=== PATIENT | male | born 1930 | race African-American/Black ===

== ENCOUNTER 2017-07-07 23:25 | Inpatient (IN) | payer MEDICARE, MEDICAID ==
[~2017-07-07] VITALS: Ht 182.9 cm; Wt 81.6 kg
--- NOTE | 2017-07-07 23:52 | Emergency Room Report ---
History of Present Illness General Chief Complaint: Upper Respiratory Illness Source: Patient Present Illness HPI 87-year-old male, coming from halfway, history of recent left inguinal repair, presenting with fever, chills, shortness of breath, abdominal pain. Patient states he has had abdominal pain for one week. Has had some nausea vomiting. Points to right lower abd, intermittent, sharp, No diarrhea no constipation. Also with cough and shortness of breath, cough is dry. Fever in halfway Allergies: Coded Allergies: No Known Allergies (Unverified , 07/07/17) Patient History Past Medical History: see triage record Past Surgical History: none Pertinent Family History: none Reviewed Nursing Documentation: PMH: Agreed, PSxH: Agreed Nursing Documentation-PMH Hx Hypertension: Yes - afib Hx Diabetes: Yes - dm type 2 Review of Systems All Other Systems: negative except mentioned in HPI Physical Exam Vital Signs Date Time Temp Pulse Resp B/P (MAP) Pulse Ox O2 Delivery O2 Flow Rate FiO2 07/07/17 23:27 98.8 54 18 123/69 95 Nasal Cannula 2.0 Sp02 EP Interpretation: reviewed, normal General Appearance: alert, GCS 15, non-toxic, mild distress Head: normocephalic, atraumatic Eyes: bilateral eye normal inspection, bilateral eye PERRL, bilateral eye EOMI ENT: normal ENT inspection, normal pharynx, normal voice, moist mucus membranes Neck: normal inspection, full range of motion, supple Respiratory: lungs clear, normal breath sounds, no retraction, respiratory distress, speaking full sentences, chest symmetrical Cardiovascular #1: normal inspection, regular rate, rhythm, no edema, normal capillary refill Cardiovascular #2: 2+ radial (R), 2+ radial (L) Gastrointestinal: other - L inguinal incision with mehul, clean dry intact, nontender at wound, RLQ tenderness no guarding or rebound. normal BS Musculoskeletal: normal inspection, back normal, normal range of motion, non- tender Neurologic: normal inspection, alert, oriented x3, responsive, motor strength/ tone normal, sensory intact, normal gait, speech normal Psychiatric: normal inspection, judgement/insight normal, memory normal Skin: normal inspection, normal color, no rash, warm/dry, well hydrated, normal turgor Medical Decision Making Diagnostic Impression: Primary Impression: Pneumonia ER Course 87-year-old male, fever chills, cough, shortness of breath, abdominal pain DDX: Sepsis 2/2 UTI, PNA, bacteremia, will also consider intra-abdominal pathology such as appendicitis/colitis / diverticulitis if no other course found but at this time abdomen soft, NT, ND. Plan: IV access - 30cc/kg bolus NS Obtain labs including cbc, bmp, blood culture, blood gas, lactate, ua, ucx CXR EKG CT abdomen pelvis ER course: Pt's airway remains patent, supplemental O2 provided by NC Patient's BP has remained stable with MAP > 65 Given broad spectrum abx - vancomycin and cefepime for HCAP Disposition: Patient will admitted to med surg D/W Hospitalist Dr Calhoun Please note that this Emergency Department Report was dictated using [employer] pipelines technology software, occasionally this can lead to erroneous entry secondary to interpretation by the dictation equipment. EKG Diagnostic Results EP Interpretation: Yes Rate: normal Rhythm: ?afib ST Segments: No acute changes ASA given to patient: No Rhythm Strip EP Interpretation: Yes Rate: 66 Rhythm: NSR, no PVCs, no ectopy Chest X-ray CXR: Ordered: Yes 1 view Indication: Shortness of breath EP interpretation: Yes Interpretation: Right lower lobe infiltrate Impression: Right lower lobe pneumonia Electronically signed by Maria G García MD Laboratory Tests Test 07/08/17 00:40 White Blood Count 10.4 K/UL (4.8-10.8) Red Blood Count 3.70 M/UL (4.70-6.10) L Hemoglobin 9.1 G/DL (14.2-18.0) L Hematocrit 28.0 % (42.0-52.0) L Mean Corpuscular Volume 76 FL (80-99) L Mean Corpuscular Hemoglobin 24.5 PG (27.0-31.0) L Mean Corpuscular Hemoglobin Concent 32.4 G/DL (32.0-36.0) Red Cell Distribution Width 16.0 % (11.6-14.8) H Platelet Count 86 K/UL (150-450) L Mean Platelet Volume 12.2 FL (6.5-10.1) H Neutrophils (%) (Auto) % (45.0-75.0) Lymphocytes (%) (Auto) % (20.0-45.0) Monocytes (%) (Auto) % (1.0-10.0) Eosinophils (%) (Auto) % (0.0-3.0) Basophils (%) (Auto) % (0.0-2.0) Sodium Level 141 MMOL/L (136-145) Potassium Level 4.3 MMOL/L (3.5-5.1) Chloride Level 108 MMOL/L (98-107) H Carbon Dioxide Level 26 MMOL/L (21-32) Anion Gap 7 mmol/L (5-15) Blood Urea Nitrogen 12 mg/dL (7-18) Creatinine 0.8 MG/DL (0.55-1.30) Estimate Glomerular Filtration Rate mL/min (>60) Glucose Level 105 MG/DL (74-106) Lactic Acid Level 0.90 mmol/L (0.66-2.22) Calcium Level 8.2 MG/DL (8.5-10.1) L Total Bilirubin 0.8 MG/DL (0.2-1.0) Aspartate Amino Transferase (AST) 22 U/L (15-37) Alanine Aminotransferase (ALT) 15 U/L (12-78) Alkaline Phosphatase 81 U/L (46-116) Troponin I 0.005 ng/mL (0.000-0.056) Pro-B-Type Natriuretic Peptide 1806 pg/mL (0-125) H Total Protein 5.4 G/DL (6.4-8.2) L Albumin 1.9 G/DL (3.4-5.0) L Globulin 3.5 g/dL Albumin/Globulin Ratio 0.5 (1.0-2.7) L Last Vital Signs Date Time Temp Pulse Resp B/P (MAP) Pulse Ox O2 Delivery O2 Flow Rate FiO2 07/07/17 23:27 98.8 54 18 123/69 95 Nasal Cannula 2.0 Disposition: ADMITTED INPATIENT Condition: Serious Maria G García M.D. Jul 07, 2017 23:52
[2017-07-08] VITALS (7 sets, daily range): BP systolic 122–133; BP diastolic 57–69
[2017-07-08] MEDS ORDERED: Vancomycin 1.5gm/D5W 250ml 250 ML IVPB ONE
[2017-07-08] MEDS ORDERED: AVODART0.5 MG ORAL (00:19)
[2017-07-08] MEDS ORDERED: DOCUSATE SODIU100 MG ORAL (00:19)
[2017-07-08] MEDS ORDERED: SIMVASTATIN20 MG ORAL (00:19)
[2017-07-08] MEDS ORDERED: AMLODIPINE BESYL5 MG ORAL (00:19)
[2017-07-08] MEDS ORDERED: ASPIR 8181 MG ORAL (00:19)
[2017-07-08] MEDS ORDERED: NITROGLYCERIN0.4 MG SL (00:19)
[2017-07-08] MEDS ORDERED: OMEPRAZOLE20 M2 ORAL (00:19)
[2017-07-08] MEDS ORDERED: VITAMIN C250 MG ORAL (00:19)
[2017-07-08] MEDS ORDERED: GABAPENTIN100 MG ORAL (00:19)
[2017-07-08] MEDS ORDERED: NORCO 5-325 TA1 EACH ORAL (00:19)
[2017-07-08] MEDS ORDERED: BISACODYL5 MG ORAL (00:19)
[2017-07-08] MEDS ORDERED: FERROUS SULFAT325 MG ORAL (00:19)
[2017-07-08] MEDS ORDERED: CARVEDILOL3.125 MG ORAL (00:19)
[2017-07-08] MEDS ORDERED: BACLOFEN10 MG ORAL (00:19)
[2017-07-08 01:11] LABS: HEMOGLOBIN 9.1 G/DL (14.2-18.0); MEAN CORPUSCULAR VOLUME 76 FL (80-99); PLATELET COUNT 86 K/UL (150-450); WHITE BLOOD COUNT 10.4 K/UL (4.8-10.8)
[2017-07-08 01:19] LABS: ANION GAP 7 mmol/L (5-15); BLOOD UREA NITROGEN 12 mg/dL (7-18); CALCIUM 8.2 MG/DL (8.5-10.1); CARBON DIOXIDE 26 MMOL/L (21-32); CHLORIDE 108 MMOL/L (98-107); CREATININE 0.8 MG/DL (0.55-1.30); POTASSIUM 4.3 MMOL/L (3.5-5.1); SODIUM 141 MMOL/L (136-145)
[2017-07-08] MEDS ORDERED: Cefepime 2gm ONE (01:29)
[2017-07-08 01:32] LABS: ALANINE AMINOTRANSFERASE 15 U/L (12-78); ALBUMIN 1.9 G/DL (3.4-5.0); ALBUMIN/GLOBULIN RATIO 0.5 (1.0-2.7); ALKALINE PHOSPHATASE 81 U/L (46-116); ASPARTATE AMINO TRANSFERASE 22 U/L (15-37); BILIRUBIN,TOTAL 0.8 MG/DL (0.2-1.0)
[2017-07-08] MEDS: Cefepime HCl 2 GM in NS 110 ML IV ONE ×3 (01:35)
[2017-07-08] MEDS ORDERED: Cefepime 1gm vial ONE (01:54)
[2017-07-08] MEDS ORDERED: Cefepime HCl 1 GM in D5W 55 ML IVPB ONE (02:00)
[2017-07-08] MEDS ORDERED: Morphine Sulfate 4mg/ml Inj ONE (03:25)
[2017-07-08] MEDS ORDERED: Morphine Sulfate 4mg/ml Inj IVP ONE (03:30)
[2017-07-08] MEDS ORDERED: Nitroglycerin Subl 0.4mg tab SL PRN (08:00)
[2017-07-08] MEDS ORDERED: Norco 5mg/325mg tab ORAL PRN (08:00)
[2017-07-08] MEDS ORDERED: Bisacodyl EC 5mg tab ORAL PRN (08:30)
[2017-07-08] MEDS: Ascorbic Acid 500mg tab ORAL SCH ×3 (08:57→17:04)
[2017-07-08] MEDS: Aspirin EC 81mg tab ORAL SCH (08:57)
[2017-07-08] MEDS ORDERED: Docusate 100mg cap ORAL SCH (09:00)
--- NOTE | 2017-07-08 10:24 | Diagnostic Imaging Report ---
Indication: Pain Technique: XRAY Chest 1v Comparison: None Findings: Exam limited due to patient rotation. Heart size is within normal limits. Atherosclerotic calcification noted within a tortuous and ectatic aorta. There is small right pleural effusion and hazy right lower lung airspace opacity. No pneumothorax. No acute osseous abnormality appreciated. Impression: Small right pleural effusion and right lower lung airspace opacities concerning for pneumonia. Clinical correlation and radiographic follow-up to resolution recommended. This corresponds with the preliminary interpretation by the treating ER physician as documented in the electronic medical record. Study obtained via the emergency department however patient admitted to the hospital at time of dictation of the final report.
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
[2017-07-08 12:58] LABS: BASOPHILS % (AUTO) 0.5 % (0.0-2.0); EOSINOPHILS % (AUTO) 0.6 % (0.0-3.0); HEMATOCRIT 29.1 % (42.0-52.0); HEMOGLOBIN 9.2 G/DL (14.2-18.0); LYMPHOCYTES % (AUTO) 11.7 % (20.0-45.0); MEAN CORPUSCULAR VOLUME 77 FL (80-99); MONOCYTES % (AUTO) 12.6 % (1.0-10.0); NEUTROPHILS % (AUTO) 74.7 % (45.0-75.0); PLATELET COUNT 219 K/UL (150-450); RED CELL DISTRIBUTION WIDTH 15.9 % (11.6-14.8); WHITE BLOOD COUNT 10.7 K/UL (4.8-10.8)
[2017-07-08 13:10] LABS: ALANINE AMINOTRANSFERASE 15 U/L (12-78); ALBUMIN/GLOBULIN RATIO 0.5 (1.0-2.7); ALKALINE PHOSPHATASE 79 U/L (46-116); ANION GAP 10 mmol/L (5-15); ASPARTATE AMINO TRANSFERASE 20 U/L (15-37); BILIRUBIN,TOTAL 0.9 MG/DL (0.2-1.0); BLOOD UREA NITROGEN 11 mg/dL (7-18); CALCIUM 8.3 MG/DL (8.5-10.1); CARBON DIOXIDE 26 MMOL/L (21-32); CHLORIDE 105 MMOL/L (98-107); CREATININE 0.8 MG/DL (0.55-1.30); POTASSIUM 4.2 MMOL/L (3.5-5.1); SODIUM 140 MMOL/L (136-145)
[2017-07-08] MEDS ORDERED: Cefepime HCl 1 GM in NS 55 ML IVPB SCH (14:00)
--- NOTE | 2017-07-08 14:54 | Consultation ---
History of Present Illness General Date patient seen: Jul 08, 2017 Present Illness Allergies: Coded Allergies: No Known Allergies (Unverified , 07/07/17) Medication History Scheduled Amlodipine Besylate* (Amlodipine Besylate*), 5 MG ORAL DAILY, (Reported) Ascorbic Acid* (Vitamin C*), 250 MG ORAL THREE TIMES A DAY, (Reported) Aspirin* (Aspir 81*), 81 MG ORAL DAILY, (Reported) Baclofen* (Baclofen*), 10 MG ORAL THREE TIMES A DAY, (Reported) Carvedilol* (Carvedilol*), 3.125 MG ORAL EVERY 12 HOURS, (Reported) Docusate Sodium* (Docusate Sodium*), 200 MG ORAL TWICE A DAY, (Reported) Dutasteride (Avodart), 0.5 MG ORAL DAILY, (Reported) Ferrous Sulfate* (Ferrous Sulfate*), 325 MG ORAL THREE TIMES A DAY, (Reported) Gabapentin* (Gabapentin*), 200 MG ORAL EVERY 8 HOURS, (Reported) Omeprazole (Omeprazole), 20 MG ORAL DAILY, (Reported) Simvastatin (Zocor), 20 MG ORAL BEDTIME, (Reported) Scheduled PRN Bisacodyl* (Dulcolax*), 5 MG ORAL DAILY PRN for Constipation, (Reported) Hydrocodone Bit/Acetaminophen 5-325* (Moodus 5-325*), 2 TAB ORAL Q6H PRN for For Pain, (Reported) Miscellaneous Medications Nitroglycerin (Nitroglycerin), 0.4 MG SL, (Reported) Patient History Healthcare decision maker Yannick Sharma Resuscitation status Full Code Advanced Directive on File Physical Exam Last 24 Hour Vital Signs Date Time Temp Pulse Resp B/P (MAP) Pulse Ox O2 Delivery O2 Flow Rate FiO2 07/08/17 12:00 97.9 60 20 130/59 98 07/08/17 08:59 64 126/60 07/08/17 08:58 64 126/60 07/08/17 08:00 98.6 64 20 126/60 97 Nasal Cannula 2.0 07/08/17 08:00 Nasal Cannula 2.0 28 07/08/17 08:00 98 Nasal Cannula 2.0 28 07/08/17 05:25 Nasal Cannula 2.0 07/08/17 04:00 98.5 66 20 129/57 98 Nasal Cannula 07/08/17 03:45 98.8 58 18 122/69 98 Nasal Cannula 2.0 07/08/17 03:45 98.8 58 18 122/69 98 Nasal Cannula 2.0 07/08/17 00:00 98.8 62 18 125/69 96 Nasal Cannula 2.0 07/08/17 00:00 54 18 Nasal Cannula 2.0 07/07/17 23:27 98.8 54 18 123/69 95 Nasal Cannula 2.0 Intake and Output 07/07/17 07/08/17 19:00 07:00 # Voids 2 Laboratory Tests Test 07/08/17 00:40 07/08/17 12:40 White Blood Count 10.4 K/UL (4.8-10.8) 10.7 K/UL (4.8-10.8) Red Blood Count 3.70 M/UL (4.70-6.10) L 3.80 M/UL (4.70-6.10) L Hemoglobin 9.1 G/DL (14.2-18.0) L 9.2 G/DL (14.2-18.0) L Hematocrit 28.0 % (42.0-52.0) L 29.1 % (42.0-52.0) L Mean Corpuscular Volume 76 FL (80-99) L 77 FL (80-99) L Mean Corpuscular Hemoglobin 24.5 PG (27.0-31.0) L 24.4 PG (27.0-31.0) L Mean Corpuscular Hemoglobin Concent 32.4 G/DL (32.0-36.0) 31.7 G/DL (32.0-36.0) L Red Cell Distribution Width 16.0 % (11.6-14.8) H 15.9 % (11.6-14.8) H Platelet Count 86 K/UL (150-450) L 219 K/UL (150-450) # Mean Platelet Volume 12.2 FL (6.5-10.1) H 8.9 FL (6.5-10.1) Neutrophils (%) (Auto) % (45.0-75.0) 74.7 % (45.0-75.0) Lymphocytes (%) (Auto) % (20.0-45.0) 11.7 % (20.0-45.0) L Monocytes (%) (Auto) % (1.0-10.0) 12.6 % (1.0-10.0) H Eosinophils (%) (Auto) % (0.0-3.0) 0.6 % (0.0-3.0) Basophils (%) (Auto) % (0.0-2.0) 0.5 % (0.0-2.0) Sodium Level 141 MMOL/L (136-145) 140 MMOL/L (136-145) Potassium Level 4.3 MMOL/L (3.5-5.1) 4.2 MMOL/L (3.5-5.1) Chloride Level 108 MMOL/L (98-107) H 105 MMOL/L (98-107) Carbon Dioxide Level 26 MMOL/L (21-32) 26 MMOL/L (21-32) Anion Gap 7 mmol/L (5-15) 10 mmol/L (5-15) Blood Urea Nitrogen 12 mg/dL (7-18) 11 mg/dL (7-18) Creatinine 0.8 MG/DL (0.55-1.30) 0.8 MG/DL (0.55-1.30) Estimat Glomerular Filtration Rate mL/min (>60) mL/min (>60) Glucose Level 105 MG/DL (74-106) 99 MG/DL (74-106) Lactic Acid Level 0.90 mmol/L (0.66-2.22) Calcium Level 8.2 MG/DL (8.5-10.1) L 8.3 MG/DL (8.5-10.1) L Total Bilirubin 0.8 MG/DL (0.2-1.0) 0.9 MG/DL (0.2-1.0) Aspartate Amino Transf (AST/SGOT) 22 U/L (15-37) 20 U/L (15-37) Alanine Aminotransferase (ALT/SGPT) 15 U/L (12-78) 15 U/L (12-78) Alkaline Phosphatase 81 U/L (46-116) 79 U/L (46-116) Troponin I 0.005 ng/mL (0.000-0.056) Pro-B-Type Natriuretic Peptide 1806 pg/mL (0-125) H Total Protein 5.4 G/DL (6.4-8.2) L 5.7 G/DL (6.4-8.2) L Albumin 1.9 G/DL (3.4-5.0) L 2.0 G/DL (3.4-5.0) L Globulin 3.5 g/dL 3.7 g/dL Albumin/Globulin Ratio 0.5 (1.0-2.7) L 0.5 (1.0-2.7) L Microbiology Date/Time Source Procedure Growth Status 07/08/17 00:40 Nasal Nares Influenza Types A,B Antigen (ANANDA) - Final Complete Height (Feet): 6 Height (Inches): 0.00 Weight (Pounds): 180 Medications Current Medications Medications (Trade) Dose Ordered Sig/Tierney Route PRN Reason Start Time Stop Time Status Last Admin Dose Admin Acetaminophen/ Hydrocodone Bitart (Moodus 10/325) 1 tab Q4H PRN ORAL severe pain 07/08/17 14:30 07/15/17 14:29 UNV Amlodipine Besylate (Norvasc) 5 mg DAILY ORAL 07/08/17 09:00 08/07/17 08:59 Ascorbic Acid (Vitamin C) 250 mg TID ORAL 07/08/17 09:00 08/07/17 08:59 07/08/17 13:13 Aspirin (Ecotrin) 81 mg DAILY ORAL 07/08/17 09:00 08/07/17 08:59 07/08/17 08:57 Atorvastatin Calcium (Lipitor) 10 mg BEDTIME ORAL 07/08/17 21:00 08/07/17 20:59 Baclofen (Lioresal) 10 mg THREE TIMES A DAY PRN ORAL Muscle Spasm 07/08/17 07:45 08/07/17 07:44 Bisacodyl (Dulcolax) 5 mg DAILY PRN ORAL Constipation 07/08/17 08:30 08/07/17 08:29 Carvedilol (Coreg) 3.125 mg EVERY 12 HOURS ORAL 07/08/17 09:00 08/07/17 08:59 Cefepime HCl 1 gm/ Sodium Chloride 55 ml @ 110 mls/hr Q12HR@0200,1400 IVPB 07/08/17 14:00 07/15/17 13:59 Docusate Sodium (Colace) 200 mg TWICE A DAY ORAL 07/08/17 09:00 08/07/17 08:59 07/08/17 08:57 Ferrous Sulfate (Feosol) 325 mg THREE TIMES A DAY ORAL 07/08/17 09:00 08/07/17 08:59 07/08/17 13:12 Finasteride (Proscar) 5 mg DAILY ORAL 07/08/17 09:00 08/07/17 08:59 Gabapentin (Neurontin) 200 mg EVERY 8 HOURS ORAL 07/08/17 14:00 08/07/17 13:59 07/08/17 13:13 Morphine Sulfate (Morphine Sulfate) 2 mg Q6H PRN IVP severe breakthrough pain 07/08/17 14:30 07/15/17 14:29 UNV Nitroglycerin (Ntg) 0.4 mg NEEDED PRN SL Prn Chest Pain 07/08/17 08:00 08/07/17 07:59 Pantoprazole (Protonix) 40 mg ACBREAKFAST ORAL 07/08/17 08:30 08/07/17 08:29 07/08/17 08:56 Assessment/Plan Assessment/Plan (1) Abdominal pain (2) Status post left inguinal herniorrhaphy (3) Atypical chest pain (4) Pneumonia seen dictated BOB KENT Jul 08, 2017 14:54
[2017-07-08] MEDS ORDERED: Docusate 100mg cap ORAL PRN (15:15)
[2017-07-08] MEDS: HYDROcodone/Acetamin 10/325 tab ORAL PRN ×2 (15:39→20:28)
--- NOTE | 2017-07-08 15:58 | Diagnostic Imaging Report ---
Indication: Abdominal pain x1 week Technique: CT of the abdomen and pelvis utilizing automated exposure control with intravenous contrast. Venous scanning performed. CT dose: Total DLP 742.67 mGycm; CTDI vol 14.56 mGy Comparison: None Findings: Small right pleural effusion with adjacent right lower lobe airspace opacities more suggestive of aspiration/consolidation versus atelectasis. Heart is borderline enlarged. There are aortic valvular calcifications. No pericardial effusion. There is a small hiatal hernia. Mild periportal edema, possibly related to hypervolemia/fluid overload. Liver otherwise unremarkable. Gallbladder unremarkable. Spleen and pancreas unremarkable in appearance. There is a 2.5 cm left adrenal mass which is not definitively characterized. Right adrenal gland is within normal limits. Bilateral simple renal cysts noted. No evidence of hydronephrosis or urinary tract stones. Some air is noted within the bladder. No bladder catheter is noted. Suspected recent left inguinal hernia repair, with overlying skin mehul in this region. There is induration in the left inguinal canal, possibly postoperative in etiology. There is a 4.2 cm peripherally enhancing fluid collection that contains a focus of gas (series 6 image #[id number]; series 3 image #70). This may represent abscess versus seroma. Fluid attenuation material noted within the small bowel and colon without evidence of obstruction or bowel wall thickening. This may be related to postoperative ileus. Enteritis or diarrheal illness is not excluded. There is dilatation of the rectum with a copious amount of stool and small amount of presacral edema. No free intraperitoneal air. There is a small fat-containing umbilical hernia. Atherosclerotic infrarenal abdominal aortic ectasia/borderline aneurysmal dilatation (2.9 cm in diameter). There is multilevel degenerative changes of the spine and a chronic appearing compression fracture of the L4 vertebral body. Degenerative change of the bilateral hips noted. IMPRESSION: Likely recent left inguinal hernia repair. 4.2 cm rim-enhancing fluid collection in the left lower quadrant containing a small amount of gas may represent a small postoperative abscess or complicated seroma. Surgical consultation and follow-up to resolution recommended. Prominent and fluid-filled small and large bowel loops without evidence of obstruction or wall thickening. Findings may be related to postoperative ileus. Enteritis or diarrheal illness not excluded. Prominent fecal burden in the rectum with presacral stranding. Correlate for impaction. Gas in the urinary bladder without C[place] catheter. Correlate for recent instrumentation versus infection. Small right pleural effusion with adjacent right basilar airspace consolidation/atelectasis. Pneumonia or aspiration should be considered. Indeterminate 2.5 cm left adrenal mass possibly representing myelolipoma or adenoma. Recommend definitive characterization with adrenal protocol CT or MR on a nonemergent basis. Additional findings as above. This corresponds with the statrad preliminary report. The CT scanner at [facility] is accredited by the [employer] and the scans are performed using protocols designed to limit radiation exposure to as low as reasonably achievable to attain images of sufficient resolution adequate for diagnostic evaluation.
[2017-07-08] MEDS: Morphine Sulfate 2mg/ml Inj IVP PRN (17:03)
[2017-07-08] MEDS: Naloxegol Oxalate 25mg tab ORAL SCH (17:09)
[2017-07-08 17:20] LABS: APPEARANCE,URINE CLEAR; BILIRUBIN, URINE NEGATIVE (NEGATIVE); COLOR,URINE BROWN; GLUCOSE, URINE (UA) NEGATIVE (NEGATIVE); KETONES,URINE NEGATIVE (NEGATIVE); LEUKOCYTE ESTERASE ,URINE 1+ (NEGATIVE); NITRITE,URINE NEGATIVE (NEGATIVE); PH,URINE 5 (4.5-8.0); PROTEIN,URINE 1+ (NEGATIVE); UROBILINOGEN,URINE 8 MG/DL (0.0-1.0)
[2017-07-08 17:50] LABS: % IRON SATURATION 5 % (15-50); IRON 11 ug/dL (50-175); TOTAL IRON BINDING CAPACITY 208 ug/dL (250-450)
[2017-07-08 17:51] LABS: FERRITIN 218 NG/ML (8-388)
[2017-07-08] MEDS: Enoxaparin 80mg Inj SUBQ SCH (20:26)
--- NOTE | 2017-07-08 21:03 | General Progress Note ---
Progress Note Progress Note let this serve as h&p since the dictation service is down and can not dictate came in with fever 104 at snf and pt had recently left inguinal hernia repair and surgical site is partially wound with mehul in.pt also c//o abdominal pain and sob and cough and chills also had recent sternal fracture admitted for rll pna on cxr and sepsis and uti and abdmoinal pain of unclear etilogy mekhi vomitting and constipation or diarrhea mekhi chest pain and has dry cough ros: as above meds/ asa baclofen and norco avodart iron neurontin prilosec zocor PMH CHRONIC PAIN BPH HTN IRON DEF ANEMIA GERD ELEV LIPID PAST SURGERY INGUINAL HERNIA REPAIN NKA FH:NON CONTRIBUTORY EXAM T 98.2 138/68 HEENT PERRLA CHEST CTA CV IRR REGULAR ABDOMIN' OPEN SURGICAL SITE IN INGUINAL HERNIA SITE LE EDEMA ABDOMIN IS SOFT BUT TENDER BUT NO REBOUND A/P FEVER RLL PNA SEPSIS ABDOMINAL PAIN RECENT HERNIA REPAIR UTI LOW PLATLET ANEMIA CHRONIC PAIN CONSULTED DR GRIFFITH AND DR THOMAS AND DR REEDER AND DR VAZQUEZ AND Mariia Hogan MD Jul 08, 2017 21:03
[2017-07-09] MEDS: Morphine Sulfate 2mg/ml Inj IVP PRN ×3 (03:59→18:25)
[2017-07-09 04:00] VITALS: BP 126/55
[2017-07-09 08:00] VITALS: BP 134/57
[2017-07-09] MEDS: Naloxegol Oxalate 25mg tab ORAL SCH (09:10)
[2017-07-09] MEDS: Ascorbic Acid 500mg tab ORAL SCH ×3 (09:11→18:18)
[2017-07-09] MEDS: Aspirin EC 81mg tab ORAL SCH (09:12)
[2017-07-09] MEDS: Enoxaparin 80mg Inj SUBQ SCH ×2 (09:13→22:34)
--- NOTE | 2017-07-09 09:19 | General Progress Note ---
Assessment/Plan Assessment/Plan (1) Abdominal pain (2) Status post left inguinal herniorrhaphy (3) Atypical chest pain (4) Pneumonia Patient to be continued on [place] and Morphine as needed. D/w Dr. Melchor and he concurred. Subjective Date patient seen: Jul 09, 2017 Time patient seen: 06:15 - am Constitutional: Reports: no symptoms HEENT: Reports: no symptoms Cardiovascular: Reports: chest pain Respiratory: Reports: shortness of breath, sputum Gastrointestinal/Abdominal: Reports: abdominal pain Genitourinary: Reports: burning Neurologic/Psychiatric: Reports: depressed Endocrine: Reports: no symptoms Hematologic/Lymphatic: Reports: no symptoms Allergies: Coded Allergies: No Known Allergies (Unverified , 07/07/17) Subjective Patient is in bed and continues to c/o pain. The pain has been tolerated on the [place] and Morphine. He is waiting to be seen by [employer] dean and surgeon. Objective Last 24 Hour Vital Signs Date Time Temp Pulse Resp B/P (MAP) Pulse Ox O2 Delivery O2 Flow Rate FiO2 07/09/17 09:12 62 134/57 07/09/17 09:11 62 134/57 07/09/17 08:00 98.9 62 20 134/57 98 Room Air 07/09/17 04:00 97.0 60 20 126/55 98 Room Air 07/09/17 00:00 57 07/08/17 20:24 64 133/64 07/08/17 20:00 98.1 64 20 133/68 98 Room Air 07/08/17 18:36 97 Nasal Cannula 2.0 28 07/08/17 18:36 Nasal Cannula 2.0 28 07/08/17 16:00 98.5 61 20 129/57 07/08/17 12:00 97.9 60 20 130/59 98 Intake and Output 07/08/17 07/09/17 19:00 07:00 Intake Total 535 ml 300 ml Balance 535 ml 300 ml Intake Oral 480 ml 300 ml IV Total 55 ml # Voids 2 2 # Bowel Movements 1 Laboratory Tests 07/08/17 12:40: White Blood Count 10.7, Red Blood Count 3.80L, Hemoglobin 9.2L, Hematocrit 29.1L , Mean Corpuscular Volume 77L, Mean Corpuscular Hemoglobin 24.4L, Mean Corpuscular Hemoglobin Concent 31.7L, Red Cell Distribution Width 15.9H, Platelet Count 219#, Mean Platelet Volume 8.9, Neutrophils (%) (Auto) 74.7, Lymphocytes (%) (Auto) 11.7L, Monocytes (%) (Auto) 12.6H, Eosinophils (%) (Auto ) 0.6, Basophils (%) (Auto) 0.5, Sodium Level 140, Potassium Level 4.2, Chloride Level 105, Carbon Dioxide Level 26, Anion Gap 10, Blood Urea Nitrogen 11, Creatinine 0.8, Estimat Glomerular Filtration Rate , Glucose Level 99, Calcium Level 8.3L, Total Bilirubin 0.9, Aspartate Amino Transf (AST/SGOT) 20, Alanine Aminotransferase (ALT/SGPT) 15, Alkaline Phosphatase 79, Total Protein 5.7L, Albumin 2.0L, Globulin 3.7, Albumin/Globulin Ratio 0.5L 07/08/17 15:55: Reticulocyte Count 0.9, Fibrinogen 424H, D-Dimer 4.07H, Uric Acid 3.7, Iron Level 11L, Total Iron Binding Capacity 208L, Percent Iron Saturation 5L, Unsaturated Iron Binding 197, Soluble Transferrin Receptor [Pending], Ferritin 218, Vitamin B12 Level 882, Folate 14.0, Thyroid Stimulating Hormone (TSH) 1.430 07/08/17 16:30: Urine Color Brown, Urine Appearance Clear, Urine pH 5, Urine Specific [place] 1.010, Urine Protein 1+H, Urine Glucose (UA) Negative, Urine Ketones Negative, Urine Occult Blood Negative, Urine Nitrite Negative, Urine Bilirubin Negative, Urine Urobilinogen 8H, Urine Leukocyte Esterase 1+H, Urine RBC 0-2H, Urine WBC 5 -10H, Urine Squamous Epithelial Cells Occasional, Urine Bacteria Occasional Height (Feet): 6 Height (Inches): 0.00 Weight (Pounds): 180 General Appearance: no apparent distress, alert EENT: PERRL/EOMI, normal ENT inspection Neck: non-tender, normal alignment Cardiovascular: normal rate, regular rhythm Respiratory/Chest: decreased breath sounds Abdomen: tender Extremities: non-tender Edema: trace edema Neurologic: alert, oriented x 3 Skin: warm/dry BOB KENT NMilton PZach Jul 09, 2017 09:19
[2017-07-09] MEDS ORDERED: Morphine Sulfate 4mg/ml Inj ONE (10:06)
--- NOTE | 2017-07-09 10:09 | Infectious Diseases Prog Note ---
Assessment/Plan Assessment/Plan A; Intraabdominal abscess/ infected seroma Pneumonia/ atelectasis Anemia DM type 2 P; start on Zosyn Surgical reevaluation Subjective ROS Limited/Unobtainable: No Constitutional: Reports: no symptoms Respiratory: Reports: productive cough, other - Right chest wall pain Cardiovascular: Reports: no symptoms Musculoskeletal: Reports: pain Allergies: Coded Allergies: No Known Allergies (Unverified , 07/07/17) Objective Vital Signs Last 24 Hour Vital Signs Date Time Temp Pulse Resp B/P (MAP) Pulse Ox O2 Delivery O2 Flow Rate FiO2 07/09/17 09:12 62 134/57 07/09/17 09:11 62 134/57 07/09/17 08:00 98.9 62 20 134/57 98 Room Air 07/09/17 04:00 97.0 60 20 126/55 98 Room Air 07/09/17 00:00 57 07/08/17 20:24 64 133/64 07/08/17 20:00 98.1 64 20 133/68 98 Room Air 07/08/17 18:36 97 Nasal Cannula 2.0 28 07/08/17 18:36 Nasal Cannula 2.0 28 07/08/17 16:00 98.5 61 20 129/57 07/08/17 12:00 97.9 60 20 130/59 98 Height (Feet): 6 Height (Inches): 0.00 Weight (Pounds): 180 General Appearance: no acute distress HEENT: mucous membranes moist Respiratory/Chest: lungs clear Cardiovascular: normal rate Abdomen: soft, non tender Extremities: no edema Skin: other - surgical mehul on left inguinal area Neurologic/Psychiatric: alert, oriented x 3, responsive Microbiology Date/Time Source Procedure Growth Status 07/08/17 00:40 Blood Blood Culture - Preliminary NO GROWTH AFTER 24 HOURS Resulted 07/08/17 00:10 Blood Blood Culture - Preliminary NO GROWTH AFTER 24 HOURS Resulted 07/08/17 00:40 Nasal Nares Influenza Types A,B Antigen (ANANDA) - Final Complete Laboratory Tests Test 07/08/17 12:40 07/08/17 15:55 07/08/17 16:30 White Blood Count 10.7 K/UL (4.8-10.8) Red Blood Count 3.80 M/UL (4.70-6.10) L Hemoglobin 9.2 G/DL (14.2-18.0) L Hematocrit 29.1 % (42.0-52.0) L Mean Corpuscular Volume 77 FL (80-99) L Mean Corpuscular Hemoglobin 24.4 PG (27.0-31.0) L Mean Corpuscular Hemoglobin Concent 31.7 G/DL (32.0-36.0) L Red Cell Distribution Width 15.9 % (11.6-14.8) H Platelet Count 219 K/UL (150-450) # Mean Platelet Volume 8.9 FL (6.5-10.1) Neutrophils (%) (Auto) 74.7 % (45.0-75.0) Lymphocytes (%) (Auto) 11.7 % (20.0-45.0) L Monocytes (%) (Auto) 12.6 % (1.0-10.0) H Eosinophils (%) (Auto) 0.6 % (0.0-3.0) Basophils (%) (Auto) 0.5 % (0.0-2.0) Sodium Level 140 MMOL/L (136-145) Potassium Level 4.2 MMOL/L (3.5-5.1) Chloride Level 105 MMOL/L (98-107) Carbon Dioxide Level 26 MMOL/L (21-32) Anion Gap 10 mmol/L (5-15) Blood Urea Nitrogen 11 mg/dL (7-18) Creatinine 0.8 MG/DL (0.55-1.30) Estimat Glomerular Filtration Rate mL/min (>60) Glucose Level 99 MG/DL (74-106) Calcium Level 8.3 MG/DL (8.5-10.1) L Total Bilirubin 0.9 MG/DL (0.2-1.0) Aspartate Amino Transf (AST/SGOT) 20 U/L (15-37) Alanine Aminotransferase (ALT/SGPT) 15 U/L (12-78) Alkaline Phosphatase 79 U/L (46-116) Total Protein 5.7 G/DL (6.4-8.2) L Albumin 2.0 G/DL (3.4-5.0) L Globulin 3.7 g/dL Albumin/Globulin Ratio 0.5 (1.0-2.7) L Reticulocyte Count 0.9 % (0.0-2.0) Fibrinogen 424 mg/dL (200-400) H D-Dimer 4.07 mg/L FEU (0.00-0.49) H Uric Acid 3.7 MG/DL (2.6-7.2) Iron Level 11 ug/dL (50-175) L Total Iron Binding Capacity 208 ug/dL (250-450) L Percent Iron Saturation 5 % (15-50) L Unsaturated Iron Binding 197 ug/dL (112-346) Soluble Transferrin Receptor Pending Ferritin 218 NG/ML (8-388) Vitamin B12 Level 882 PG/ML (193-986) Folate 14.0 NG/ML (8.6-58.9) Thyroid Stimulating Hormone (TSH) 1.430 uiU/mL (0.358-3.740) Urine Color Brown Urine Appearance Clear Urine pH 5 (4.5-8.0) Urine Specific [place] 1.010 (1.005-1.035) Urine Protein 1+ (NEGATIVE) H Urine Glucose (UA) Negative (NEGATIVE) Urine Ketones Negative (NEGATIVE) Urine Occult Blood Negative (NEGATIVE) Urine Nitrite Negative (NEGATIVE) Urine Bilirubin Negative (NEGATIVE) Urine Urobilinogen 8 MG/DL (0.0-1.0) H Urine Leukocyte Esterase 1+ (NEGATIVE) H Urine RBC 0-2 /HPF (0 - 0) H Urine WBC 5-10 /HPF (0 - 0) H Urine Squamous Epithelial Cells Occasional /LPF Urine Bacteria Occasional /HPF (NONE) Current Medications Medications (Trade) Dose Ordered Sig/Tierney Route PRN Reason Start Time Stop Time Status Last Admin Dose Admin Acetaminophen/ Hydrocodone Bitart ([place] 10/325) 1 tab Q4H PRN ORAL Severe Pain (Pain Scale 7-10) 07/08/17 14:30 07/15/17 14:29 07/08/17 20:28 Amlodipine Besylate (Norvasc) 5 mg DAILY ORAL 07/08/17 09:00 08/07/17 08:59 07/09/17 09:11 Ascorbic Acid (Vitamin C) 250 mg TID ORAL 07/08/17 09:00 08/07/17 08:59 07/09/17 09:11 Aspirin (Ecotrin) 81 mg DAILY ORAL 07/08/17 09:00 08/07/17 08:59 07/09/17 09:12 Atorvastatin Calcium (Lipitor) 10 mg BEDTIME ORAL 07/08/17 21:00 08/07/17 20:59 07/08/17 20:24 Baclofen (Lioresal) 10 mg THREE TIMES A DAY PRN ORAL Muscle Spasm 07/08/17 07:45 08/07/17 07:44 Bisacodyl (Dulcolax) 5 mg DAILYPRN PRN ORAL Constipation 07/08/17 15:15 08/07/17 08:29 Carvedilol (Coreg) 3.125 mg EVERY 12 HOURS ORAL 07/08/17 09:00 08/07/17 08:59 07/09/17 09:12 Docusate Sodium (Colace) 200 mg BIDPRN PRN ORAL Constipation 07/08/17 15:15 08/07/17 08:59 Enoxaparin Sodium (Lovenox) 80 mg Q12HR SUBQ 07/08/17 21:00 08/07/17 20:59 07/09/17 09:13 Ferrous Sulfate (Feosol) 325 mg THREE TIMES A DAY ORAL 07/14/17 09:00 08/13/17 08:59 Finasteride (Proscar) 5 mg DAILY ORAL 07/08/17 09:00 08/07/17 08:59 07/09/17 09:12 Gabapentin (Neurontin) 200 mg EVERY 8 HOURS ORAL 07/08/17 14:00 08/07/17 13:59 07/09/17 06:00 Iron Sucrose 100 mg/Sodium Chloride 60 ml @ 240 mls/hr BEDTIME IV 07/09/17 21:00 07/13/17 21:14 Morphine Sulfate (Morphine Sulfate) 2 mg Q6H PRN IVP Severe Breakthru Pain (>7) 07/08/17 14:30 07/15/17 14:29 07/09/17 03:59 Naloxegol (Movantik) 12.5 mg DAILY ORAL 07/08/17 17:00 08/07/17 16:59 07/09/17 09:10 Nitroglycerin (Ntg) 0.4 mg NEEDED PRN SL Prn Chest Pain 07/08/17 08:00 08/07/17 07:59 Pantoprazole (Protonix) 40 mg ACBREAKFAST ORAL 07/08/17 08:30 08/07/17 08:29 07/09/17 06:43 JIN ABBASI Jul 09, 2017 10:09
--- NOTE | 2017-07-09 10:12 | Pulmonology Progress Note ---
Assessment/Plan Assessment/Plan pulmonary embolism and infarction no signs of pneumonia probable DVT recent L inguinal hernia repair Started Lovenox dc abx with no fever or WBC start oral AC when ready for DC await duplex scan consult dictated yesterday Subjective Constitutional: Denies: fever Cardiovascular: Reports: chest pain Allergies: Coded Allergies: No Known Allergies (Unverified , 07/07/17) Objective Last 24 Hour Vital Signs Date Time Temp Pulse Resp B/P (MAP) Pulse Ox O2 Delivery O2 Flow Rate FiO2 07/09/17 09:12 62 134/57 07/09/17 09:11 62 134/57 07/09/17 08:00 98.9 62 20 134/57 98 Room Air 07/09/17 04:00 97.0 60 20 126/55 98 Room Air 07/09/17 00:00 57 07/08/17 20:24 64 133/64 07/08/17 20:00 98.1 64 20 133/68 98 Room Air 07/08/17 18:36 97 Nasal Cannula 2.0 28 07/08/17 18:36 Nasal Cannula 2.0 28 07/08/17 16:00 98.5 61 20 129/57 07/08/17 12:00 97.9 60 20 130/59 98 Intake and Output 07/08/17 07/09/17 19:00 07:00 Intake Total 535 ml 300 ml Balance 535 ml 300 ml Intake Oral 480 ml 300 ml IV Total 55 ml # Voids 2 2 # Bowel Movements 1 General Appearance: no acute distress Respiratory/Chest: decreased breath sounds Cardiovascular: normal rate Extremities: other - RLE edema Microbiology Date/Time Source Procedure Growth Status 07/08/17 00:40 Blood Blood Culture - Preliminary NO GROWTH AFTER 24 HOURS Resulted 07/08/17 00:10 Blood Blood Culture - Preliminary NO GROWTH AFTER 24 HOURS Resulted 07/08/17 00:40 Nasal Nares Influenza Types A,B Antigen (ANANDA) - Final Complete Laboratory Tests 07/08/17 12:40: White Blood Count 10.7, Red Blood Count 3.80L, Hemoglobin 9.2L, Hematocrit 29.1L , Mean Corpuscular Volume 77L, Mean Corpuscular Hemoglobin 24.4L, Mean Corpuscular Hemoglobin Concent 31.7L, Red Cell Distribution Width 15.9H, Platelet Count 219#, Mean Platelet Volume 8.9, Neutrophils (%) (Auto) 74.7, Lymphocytes (%) (Auto) 11.7L, Monocytes (%) (Auto) 12.6H, Eosinophils (%) (Auto ) 0.6, Basophils (%) (Auto) 0.5, Sodium Level 140, Potassium Level 4.2, Chloride Level 105, Carbon Dioxide Level 26, Anion Gap 10, Blood Urea Nitrogen 11, Creatinine 0.8, Estimat Glomerular Filtration Rate , Glucose Level 99, Calcium Level 8.3L, Total Bilirubin 0.9, Aspartate Amino Transf (AST/SGOT) 20, Alanine Aminotransferase (ALT/SGPT) 15, Alkaline Phosphatase 79, Total Protein 5.7L, Albumin 2.0L, Globulin 3.7, Albumin/Globulin Ratio 0.5L 07/08/17 15:55: Reticulocyte Count 0.9, Fibrinogen 424H, D-Dimer 4.07H, Uric Acid 3.7, Iron Level 11L, Total Iron Binding Capacity 208L, Percent Iron Saturation 5L, Unsaturated Iron Binding 197, Soluble Transferrin Receptor [Pending], Ferritin 218, Vitamin B12 Level 882, Folate 14.0, Thyroid Stimulating Hormone (TSH) 1.430 07/08/17 16:30: Urine Color Brown, Urine Appearance Clear, Urine pH 5, Urine Specific [place] 1.010, Urine Protein 1+H, Urine Glucose (UA) Negative, Urine Ketones Negative, Urine Occult Blood Negative, Urine Nitrite Negative, Urine Bilirubin Negative, Urine Urobilinogen 8H, Urine Leukocyte Esterase 1+H, Urine RBC 0-2H, Urine WBC 5 -10H, Urine Squamous Epithelial Cells Occasional, Urine Bacteria Occasional Current Medications Medications (Trade) Dose Ordered Sig/Tierney Route PRN Reason Start Time Stop Time Status Last Admin Dose Admin Acetaminophen/ Hydrocodone Bitart ([place] 10/325) 1 tab Q4H PRN ORAL Severe Pain (Pain Scale 7-10) 07/08/17 14:30 07/15/17 14:29 07/08/17 20:28 Amlodipine Besylate (Norvasc) 5 mg DAILY ORAL 07/08/17 09:00 08/07/17 08:59 07/09/17 09:11 Ascorbic Acid (Vitamin C) 250 mg TID ORAL 07/08/17 09:00 08/07/17 08:59 07/09/17 09:11 Aspirin (Ecotrin) 81 mg DAILY ORAL 07/08/17 09:00 08/07/17 08:59 07/09/17 09:12 Atorvastatin Calcium (Lipitor) 10 mg BEDTIME ORAL 07/08/17 21:00 08/07/17 20:59 07/08/17 20:24 Baclofen (Lioresal) 10 mg THREE TIMES A DAY PRN ORAL Muscle Spasm 07/08/17 07:45 08/07/17 07:44 Bisacodyl (Dulcolax) 5 mg DAILYPRN PRN ORAL Constipation 07/08/17 15:15 08/07/17 08:29 Carvedilol (Coreg) 3.125 mg EVERY 12 HOURS ORAL 07/08/17 09:00 08/07/17 08:59 07/09/17 09:12 Docusate Sodium (Colace) 200 mg BIDPRN PRN ORAL Constipation 07/08/17 15:15 08/07/17 08:59 Enoxaparin Sodium (Lovenox) 80 mg Q12HR SUBQ 07/08/17 21:00 08/07/17 20:59 07/09/17 09:13 Ferrous Sulfate (Feosol) 325 mg THREE TIMES A DAY ORAL 07/14/17 09:00 08/13/17 08:59 Finasteride (Proscar) 5 mg DAILY ORAL 07/08/17 09:00 08/07/17 08:59 07/09/17 09:12 Gabapentin (Neurontin) 200 mg EVERY 8 HOURS ORAL 07/08/17 14:00 08/07/17 13:59 07/09/17 06:00 Iron Sucrose 100 mg/Sodium Chloride 60 ml @ 240 mls/hr BEDTIME IV 07/09/17 21:00 07/13/17 21:14 Morphine Sulfate (Morphine Sulfate) 2 mg Q6H PRN IVP Severe Breakthru Pain (>7) 07/08/17 14:30 07/15/17 14:29 07/09/17 03:59 Naloxegol (Movantik) 12.5 mg DAILY ORAL 07/08/17 17:00 08/07/17 16:59 07/09/17 09:10 Nitroglycerin (Ntg) 0.4 mg NEEDED PRN SL Prn Chest Pain 07/08/17 08:00 08/07/17 07:59 Pantoprazole (Protonix) 40 mg ACBREAKFAST ORAL 07/08/17 08:30 08/07/17 08:29 07/09/17 06:43 Piperacillin Sod/ Tazobactam Sod 3.375 gm/Dextrose 110 ml @ 27.5 mls/hr EVERY 8 HOURS IVPB 07/09/17 10:00 07/14/17 09:59 DONTE JOHNSON Jul 09, 2017 10:12
[2017-07-09 11:42] LABS: BASOPHILS % (AUTO) 0.4 % (0.0-2.0); EOSINOPHILS % (AUTO) 1.2 % (0.0-3.0); HEMATOCRIT 28.8 % (42.0-52.0); HEMOGLOBIN 9.1 G/DL (14.2-18.0); LYMPHOCYTES % (AUTO) 13.1 % (20.0-45.0); MEAN CORPUSCULAR VOLUME 77 FL (80-99); MONOCYTES % (AUTO) 12.1 % (1.0-10.0); NEUTROPHILS % (AUTO) 73.1 % (45.0-75.0); PLATELET COUNT 235 K/UL (150-450); RED BLOOD COUNT 3.73 M/UL (4.70-6.10); RED CELL DISTRIBUTION WIDTH 15.6 % (11.6-14.8)
[2017-07-09 12:00] VITALS: BP 123/58
[2017-07-09 12:01] LABS: ALANINE AMINOTRANSFERASE 15 U/L (12-78); ALBUMIN 1.9 G/DL (3.4-5.0); ALBUMIN/GLOBULIN RATIO 0.5 (1.0-2.7); ALKALINE PHOSPHATASE 76 U/L (46-116); ANION GAP 7 mmol/L (5-15); ASPARTATE AMINO TRANSFERASE 21 U/L (15-37); BILIRUBIN,TOTAL 0.6 MG/DL (0.2-1.0); BLOOD UREA NITROGEN 10 mg/dL (7-18); CALCIUM 8.3 MG/DL (8.5-10.1); CARBON DIOXIDE 26 MMOL/L (21-32); CHLORIDE 105 MMOL/L (98-107); CREATININE 0.8 MG/DL (0.55-1.30); POTASSIUM 4.2 MMOL/L (3.5-5.1); SODIUM 138 MMOL/L (136-145)
[2017-07-09] MEDS: Piperacillin/Tazobactam 3.375 GM in NS 110 ML IVPB SCH ×2 (12:03→22:30)
--- NOTE | 2017-07-09 12:54 | Consultation ---
DATE OF CONSULTATION: 07/08/2017 PAIN MANAGEMENT CONSULTATION CONSULTING PHYSICIAN: Rochelle Melchor M.D. REFERRING PHYSICIAN: Mariia Costello M.D. PHYSICIAN CERTIFIED MEDICAL TECHNICIAN ASSISTANT: SHRUTHI Fitzpatrick CHIEF COMPLAINT: Left groin and abdominal pain. HISTORY OF PRESENT ILLNESS: This is an 87-year-old male, who is being seen on the Med/Surg floor of [facility] for initial comprehensive pain management consultation. The patient had complained of acute left groin and abdominal pain 10 days ago, was in [facility], found to have incarcerated left inguinal hernia, status post left inguinal herniorrhaphy, and was sent back to the correction, however, started to have increased pain in abdominal area and in the groin while in the correction. Also stating that he started to have chest pain worse and a chest x-ray was done, which found the patient to have pneumonia. As an outpatient, the patient is taking [place] 5/325 two tablets every 6 hours as needed for severe pain with minimal pain relief. Due to this, we were consulted so that the patient would have adequate pain control while here in the hospital. PAST MEDICAL HISTORY: Atrial fibrillation, diabetes mellitus, BPH, hyperlipidemia. PAST SURGICAL HISTORY: Inguinal hernia repair. SOCIAL HISTORY: He has no history of heroin abuse, cocaine abuse, or alcohol abuse. ALLERGIES: No known drug allergies. MEDICATIONS: , vitamin C, aspirin, baclofen, carvedilol, docusate, Avodart, ferrous sulfate, gabapentin, omeprazole, Zocor, Bystolic, [place], and nitroglycerin. REVIEW OF SYSTEMS: Denies rash, fever, chills, sweating, dizziness, drowsiness, or change in weight. No change in his weight. No nausea, vomiting, diarrhea, blood in the stool or urine. No bowel or bladder incontinence. No dysuria. He is complaining of chest pain and abdominal pain. PHYSICAL EXAMINATION: GENERAL: Alert, awake, and oriented. VITAL SIGNS: Blood pressure 130/59, heart rate is 60, oxygen saturation is 98%, respirations 20, and temperature 97.9 degrees Fahrenheit. Height is 6 feet, weight is 180 pounds. HEENT: PERRLA. NECK: Range of motion is full in all directions. No tenderness to palpation of the paracervical muscles. No adenopathy. LUNGS: Decreased breath sounds bilaterally. HEART: Regular. ABDOMEN: Tenderness to palpation with surgical wounds noted. EXTREMITIES: Upper and lower extremity range of motion is decreased due to the patient's condition. Motor is intact. No cyanosis. No clubbing. No edema noted. Sensory is intact. Reflexes are not obtainable. No adenopathy. ASSESSMENT AND PLAN: This is an 87-year-old male with abdominal pain, status post left inguinal herniorrhaphy, atypical chest pain, pneumonia. The patient will be changed to [place] 10/325 one tablet every 4 hours as needed for moderate pain and started on morphine 2 mg IV every 6 hours as needed for severe breakthrough pain. The patient was discussed with Dr. Melchor and Dr. Melchor concurred. We will follow the patient. Thank you very much for the courtesy of this consultation. Rochelle Melchor M.D. SHRUTHI Fitzpatrick DR: DESTIN JOB#: [id number] CC:
--- NOTE | 2017-07-09 12:56 | Consultation ---
DATE OF CONSULTATION: 07/08/2017 INFECTIOUS DISEASE CONSULTATION CONSULTING PHYSICIAN: Eloy Winston M.D. PRIMARY ATTENDING PHYSICIAN: Mariia Costello M.D. REASON FOR CONSULTATION: Pneumonia. HISTORY OF PRESENT ILLNESS: The patient is an 87-year-old male, who is a group home resident, admitted today complaining of fever, chills, abdominal pain, shortness of breath, and coughing. The patient had a recent history of inguinal hernia surgery in [facility] around two weeks ago. He states that the area of surgery is good but did have pain in right upper abdominal area and right lower chest, has coughing with productive sputum. In hospital, the patient was afebrile. PAST MEDICAL HISTORY: Significant for diabetes mellitus type 2, atrial fibrillation, inguinal hernia surgery. ALLERGIES: No known drug allergies. MEDICATIONS: Atorvastatin, gabapentin, amlodipine, aspirin, carvedilol, Colace, ferrous sulfate, vitamin C, finasteride, bisacodyl, Protonix, [place], nitroglycerin, get the dose of cefepime and vancomycin. SOCIAL HISTORY: Single, group home resident. Denies alcohol, drug abuse, or smoking. REVIEW OF SYSTEMS: Productive cough with thick sputum, right lower chest pain, right upper abdominal pain. No dysuria. PHYSICAL EXAMINATION: VITAL SIGNS: Temperature 98.6, pulse 64, blood pressure 126/60. GENERAL APPEARANCE: Well developed, no acute distress. HEAD AND NECK: [place] conjunctiva. HEART: S1 and S2 regular. LUNGS: Clear. ABDOMEN: soft, nontender. There is a staple of surgery in right inguinal area. The area is healed without any discharge or redness. GENITOURINARY: Normal male genitalia without any swelling or infection in testicular area. EXTREMITIES: No edema. LABORATORY AND DIAGNOSTIC DATA: WBC 10.4, hemoglobin 9.1, hematocrit 28, platelets 86. Sodium 141, potassium 4.3, chloride 108, bicarb 26, BUN 12, creatinine 0.8. Albumin is 1.9. Influenza A and B antigen were negative. Chest x-ray showed right lower lobe effusion, pneumonia. IMPRESSION: 1. Right lower lobe pneumonia. 2. The patient had a recent inguinal hernia surgery around two weeks ago. 3. He has diabetes mellitus type 2, anemia, thrombocytopenia, and decreased albumin level. RECOMMENDATION: 1. We will continue with cefepime. 2. We will follow up the cultures. At the end of my exam, I thank Dr. Costello for involving me in the care of this patient. If the abdominal pain does not improve, we will order abdominal ultrasound. Eloy Winston M.D. DR: Jaymie JOB#: [id number] CC:
--- NOTE | 2017-07-09 12:56 | Consultation ---
DATE OF CONSULTATION: 07/08/2017 NOTE: POOR AUDIO HEMATOLOGY/ONCOLOGY CONSULTATION CONSULTING PHYSICIAN: Michele Isabel M.D. REQUESTING PHYSICIAN: Mariia Costello M.D. REASON FOR CONSULTATION: Anemia and thrombocytopenia. IDENTIFICATION DATA: Dear Dr. Mariia Costello, The patient is a pleasant 87-year-old male with past medical history significant for hypertension and anemia of iron deficiency, at this time he is being admitted for abdominal pain, fevers, and abnormal blood work thrombocytopenia as well as anemia incarcerated left inguinal hernia. He has been recovering, however, recently had cough and fevers. Surgery called to evaluate the wound as well as the hernia. Hematology Service was consulted for further evaluation of anemia. Platelets of 71,000. PAST MEDICAL HISTORY: As noted above. PAST SURGICAL HISTORY: None noted. MEDICATIONS: Amlodipine, aspirin, ascorbic acid, , ferrous sulfate, and Neurontin. ALLERGIES: . REVIEW OF SYSTEMS: A 12-point review of systems was completed and is otherwise negative. PHYSICAL EXAMINATION: GENERAL: No distress. VITAL SIGNS: Reviewed. PULMONARY: Decreased breath sounds. CARDIOVASCULAR: Regular rate. No S3 or S4. ABDOMEN: Soft, nontender, and nondistended. Abdominal hernia . EXTREMITIES: No cyanosis, swelling, or edema reported. LABORATORY AND DIAGNOSTIC DATA: WBC 12.7, hemoglobin 9.2, and platelet count 219,000. Imaging, small right pleural effusion, right lower lobe air space opacities concerning for pneumonia. ASSESSMENT AND RECOMMENDATIONS: 1. Anemia due to underlying iron deficiency. Obtain anemia workup. Currently, no evidence of hemolysis. Creatinine is stable at this time. No evidence of . 2. Thrombocytopenia, platelet count of 86,000, currently up trending. Continue to closely monitor. Consider human immunodeficiency and hepatitis panel if does not improve. 3. Leukocytosis . 4. Pneumonia related to pneumonia infection contributing to leukocytosis. 5. chest pain. 6. Abdominal pain. I appreciate the consultation. Michele Isabel M.D. DR: Sveta JOB#: [id number] CC:
[2017-07-09] MEDS: HYDROcodone/Acetamin 10/325 tab ORAL PRN (13:40)
--- NOTE | 2017-07-09 14:16 | Diagnostic Imaging Report ---
Indication: Chest pain Technique: Continuous helical transaxial imaging of the chest was obtained from the thoracic inlet to the upper abdomen during rapid intravenous contrast administration. Arterial phase of enhancement obtained. Coronal 2-D reformats were also obtained and maximum intensity projection images in multiple planes. Study obtained in a Siemens sensation [address] Automatic Exposure Control was utilized. Total Dose length Product (DLP): 679.[address] Dose Index Volume (CTDIvol): 19.12 mGy Comparison: None Findings: Pulmonary arteries are suboptimally opacified. That said, there is evidence of filling defect at the bifurcation of the right lower lobe pulmonary artery branch extending to segmental vessels and subsegmental vessels. Prominent filling defect also noted in a segmental right upper lobe branch. There is somewhat poor opacification and nondiagnostic evaluation of the segmental branches of the left lung. More proximally on the left the central vessels are clear. There is a small right pleural effusion. Upper lung bustillo are hyperlucent. There is moderate consolidation of the right lower lobe suspicious for pneumonia or pulmonary infarct. Aorta is moderately calcified. Heart is unremarkable. Visualized part of the upper abdomen is unremarkable. The lower aspect of the sternum demonstrates abnormal soft tissue attenuation with loss of the fat attenuation suspicious for infiltrative focus. There is a fracture of the lower sternum noted. The findings suggest pathologic injury and malignant neoplasm. Please correlate clinically. Generalized osteopenia noted elsewhere. IMPRESSION: Evidence of pulmonary embolus as described above. Right basilar consolidation suspicious for pneumonia versus pulmonary infarct. Small right pleural effusion. Atherosclerotic disease Mild emphysema. Pathologic fracture lower sternum. [facility] has communicated the preliminary results to the Emergency Department. Their findings are largely concordant with this report. The CT scanner at [facility] is accredited by the [employer] and the scans are performed using dose optimization techniques as appropriate to a performed exam including Automatic Exposure control.
--- NOTE | 2017-07-09 14:23 | General Surgery Progress Note ---
General Surgery-Progress Note Subjective Symptoms: improved Additional Comments doing well. tolerating diet. still with sternal pain. no abdominal pain today. Objective Last 24 Hour Vital Signs Date Time Temp Pulse Resp B/P (MAP) Pulse Ox O2 Delivery O2 Flow Rate FiO2 07/09/17 12:00 60 07/09/17 12:00 98.3 63 19 123/58 98 Room Air 07/09/17 10:41 98.9 07/09/17 09:12 62 134/57 07/09/17 09:11 62 134/57 07/09/17 08:00 63 07/09/17 08:00 98.9 62 20 134/57 98 Room Air 07/09/17 04:00 97.0 60 20 126/55 98 Room Air 07/09/17 00:00 57 07/08/17 20:24 64 133/64 07/08/17 20:00 98.1 64 20 133/68 98 Room Air 07/08/17 18:36 97 Nasal Cannula 2.0 28 07/08/17 18:36 Nasal Cannula 2.0 28 07/08/17 16:00 98.5 61 20 129/57 I&O Intake and Output 07/08/17 07/09/17 19:00 07:00 Intake Total 535 ml 300 ml Balance 535 ml 300 ml Intake Oral 480 ml 300 ml IV Total 55 ml # Voids 2 2 # Bowel Movements 1 Cardiovascular: RSR Respiratory: clear Abdomen: soft, flat, non-tender, present bowel sounds, other - left inguinal incision c/d/i. no erythema. no edema, no signs of infection, non tender. Extremities: no tenderness Laboratory Tests Test 07/08/17 15:55 07/08/17 16:30 07/09/17 11:20 07/09/17 12:15 Reticulocyte Count 0.9 % (0.0-2.0) Fibrinogen 424 mg/dL (200-400) H D-Dimer 4.07 mg/L FEU (0.00-0.49) H Uric Acid 3.7 MG/DL (2.6-7.2) Iron Level 11 ug/dL (50-175) L Total Iron Binding Capacity 208 ug/dL (250-450) L Percent Iron Saturation 5 % (15-50) L Unsaturated Iron Binding 197 ug/dL (112-346) Soluble Transferrin Receptor Pending Ferritin 218 NG/ML (8-388) Vitamin B12 Level 882 PG/ML (193-986) Folate 14.0 NG/ML (8.6-58.9) Thyroid Stimulating Hormone (TSH) 1.430 uiU/mL (0.358-3.740) Urine Color Brown Urine Appearance Clear Urine pH 5 (4.5-8.0) Urine Specific [place] 1.010 (1.005-1.035) Urine Protein 1+ (NEGATIVE) H Urine Glucose (UA) Negative (NEGATIVE) Urine Ketones Negative (NEGATIVE) Urine Occult Blood Negative (NEGATIVE) Urine Nitrite Negative (NEGATIVE) Urine Bilirubin Negative (NEGATIVE) Urine Urobilinogen 8 MG/DL (0.0-1.0) H Urine Leukocyte Esterase 1+ (NEGATIVE) H Urine RBC 0-2 /HPF (0 - 0) H Urine WBC 5-10 /HPF (0 - 0) H Urine Squamous Epithelial Cells Occasional /LPF Urine Bacteria Occasional /HPF (NONE) White Blood Count 9.0 K/UL (4.8-10.8) Red Blood Count 3.73 M/UL (4.70-6.10) L Hemoglobin 9.1 G/DL (14.2-18.0) L Hematocrit 28.8 % (42.0-52.0) L Mean Corpuscular Volume 77 FL (80-99) L Mean Corpuscular Hemoglobin 24.2 PG (27.0-31.0) L Mean Corpuscular Hemoglobin Concent 31.4 G/DL (32.0-36.0) L Red Cell Distribution Width 15.6 % (11.6-14.8) H Platelet Count 235 K/UL (150-450) Mean Platelet Volume 8.7 FL (6.5-10.1) Neutrophils (%) (Auto) 73.1 % (45.0-75.0) Lymphocytes (%) (Auto) 13.1 % (20.0-45.0) L Monocytes (%) (Auto) 12.1 % (1.0-10.0) H Eosinophils (%) (Auto) 1.2 % (0.0-3.0) Basophils (%) (Auto) 0.4 % (0.0-2.0) Sodium Level 138 MMOL/L (136-145) Potassium Level 4.2 MMOL/L (3.5-5.1) Chloride Level 105 MMOL/L (98-107) Carbon Dioxide Level 26 MMOL/L (21-32) Anion Gap 7 mmol/L (5-15) Blood Urea Nitrogen 10 mg/dL (7-18) Creatinine 0.8 MG/DL (0.55-1.30) Estimat Glomerular Filtration Rate mL/min (>60) Glucose Level 81 MG/DL (74-106) Calcium Level 8.3 MG/DL (8.5-10.1) L Total Bilirubin 0.6 MG/DL (0.2-1.0) Aspartate Amino Transf (AST/SGOT) 21 U/L (15-37) Alanine Aminotransferase (ALT/SGPT) 15 U/L (12-78) Alkaline Phosphatase 76 U/L (46-116) Total Protein 5.6 G/DL (6.4-8.2) L Albumin 1.9 G/DL (3.4-5.0) L Globulin 3.7 g/dL Albumin/Globulin Ratio 0.5 (1.0-2.7) L Prothrombin Time 10.4 SEC (9.30-11.50) Prothromb Time International Ratio 1.0 (0.9-1.1) Plan Problems: (1) Abdominal pain Assessment & Plan: 87M with fever, abd pain, cough, pna, recent history of left inguinal hernia repair for incarceration. currently stable. noted to be anemic and thrombocytopenic on labs. no leukocytosis. abdominal exam benign. left inguinal wound clean, dry, intact without signs of active infection. CXR with possible pneumonia. CT reviewed and small 4cm fluid collection likely seroma. no surrounding inflammation and exam very benign. very unlikely to be abscess CT chest with PE. -Abx d/c -Started on Tx for PE -no acute surgical intervention necessary -will follow exam and with recs. thank you for this consultation. Abhay Thomson Jul 09, 2017 14:23
--- NOTE | 2017-07-09 15:45 | Consultation ---
History of Present Illness General Date patient seen: Jul 08, 2017 Chief Complaint: Upper Respiratory Illness Present Illness HPI 87-year-old male with past medical history significant for hypertension and anemia of iron deficiency,the pt was admitted for abdominal pain, fevers, and abnormal blood work. the pt is delusional and disorganized. he believes a man is going to his room and harass him. the pt is confused and oriented to self and place. the pt is yelling and is agitated Allergies: Coded Allergies: No Known Allergies (Unverified , 07/07/17) Medication History Scheduled Amlodipine Besylate* (Amlodipine Besylate*), 5 MG ORAL DAILY, (Reported) Ascorbic Acid* (Vitamin C*), 250 MG ORAL THREE TIMES A DAY, (Reported) Aspirin* (Aspir 81*), 81 MG ORAL DAILY, (Reported) Baclofen* (Baclofen*), 10 MG ORAL THREE TIMES A DAY, (Reported) Carvedilol* (Carvedilol*), 3.125 MG ORAL EVERY 12 HOURS, (Reported) Docusate Sodium* (Docusate Sodium*), 200 MG ORAL TWICE A DAY, (Reported) Dutasteride (Avodart), 0.5 MG ORAL DAILY, (Reported) Ferrous Sulfate* (Ferrous Sulfate*), 325 MG ORAL THREE TIMES A DAY, (Reported) Gabapentin* (Gabapentin*), 200 MG ORAL EVERY 8 HOURS, (Reported) Omeprazole (Omeprazole), 20 MG ORAL DAILY, (Reported) Simvastatin (Zocor), 20 MG ORAL BEDTIME, (Reported) Scheduled PRN Bisacodyl* (Dulcolax*), 5 MG ORAL DAILY PRN for Constipation, (Reported) Hydrocodone Bit/Acetaminophen 5-325* (Auberry 5-325*), 2 TAB ORAL Q6H PRN for For Pain, (Reported) Miscellaneous Medications Nitroglycerin (Nitroglycerin), 0.4 MG SL, (Reported) Patient History History Provided By: Patient, Medical Record, PMD Healthcare decision maker Yannick Sharma Resuscitation status Full Code Advanced Directive on File Review of Systems Psychiatric: Reports: see HPI, prior hx, anxiety, depressed feelings, emotional problems, hallucinations Physical Exam General Appearance: no apparent distress, alert, confused, agitated Neurologic: alert, responsive, depressed affect Last 24 Hour Vital Signs Date Time Temp Pulse Resp B/P (MAP) Pulse Ox O2 Delivery O2 Flow Rate FiO2 07/09/17 12:00 60 07/09/17 12:00 98.3 63 19 123/58 98 Room Air 07/09/17 10:41 98.9 07/09/17 09:12 62 134/57 07/09/17 09:11 62 134/57 07/09/17 08:00 63 07/09/17 08:00 98.9 62 20 134/57 98 Room Air 07/09/17 04:00 97.0 60 20 126/55 98 Room Air 07/09/17 00:00 57 07/08/17 20:24 64 133/64 07/08/17 20:00 98.1 64 20 133/68 98 Room Air 07/08/17 18:36 97 Nasal Cannula 2.0 28 07/08/17 18:36 Nasal Cannula 2.0 28 07/08/17 16:00 98.5 61 20 129/57 Intake and Output 07/08/17 07/09/17 19:00 07:00 Intake Total 535 ml 300 ml Balance 535 ml 300 ml Intake Oral 480 ml 300 ml IV Total 55 ml # Voids 2 2 # Bowel Movements 1 Laboratory Tests Test 07/08/17 15:55 07/08/17 16:30 07/09/17 11:20 07/09/17 12:15 Reticulocyte Count 0.9 % (0.0-2.0) Fibrinogen 424 mg/dL (200-400) H D-Dimer 4.07 mg/L FEU (0.00-0.49) H Uric Acid 3.7 MG/DL (2.6-7.2) Iron Level 11 ug/dL (50-175) L Total Iron Binding Capacity 208 ug/dL (250-450) L Percent Iron Saturation 5 % (15-50) L Unsaturated Iron Binding 197 ug/dL (112-346) Soluble Transferrin Receptor Pending Ferritin 218 NG/ML (8-388) Vitamin B12 Level 882 PG/ML (193-986) Folate 14.0 NG/ML (8.6-58.9) Thyroid Stimulating Hormone (TSH) 1.430 uiU/mL (0.358-3.740) Urine Color Brown Urine Appearance Clear Urine pH 5 (4.5-8.0) Urine Specific [place] 1.010 (1.005-1.035) Urine Protein 1+ (NEGATIVE) H Urine Glucose (UA) Negative (NEGATIVE) Urine Ketones Negative (NEGATIVE) Urine Occult Blood Negative (NEGATIVE) Urine Nitrite Negative (NEGATIVE) Urine Bilirubin Negative (NEGATIVE) Urine Urobilinogen 8 MG/DL (0.0-1.0) H Urine Leukocyte Esterase 1+ (NEGATIVE) H Urine RBC 0-2 /HPF (0 - 0) H Urine WBC 5-10 /HPF (0 - 0) H Urine Squamous Epithelial Cells Occasional /LPF Urine Bacteria Occasional /HPF (NONE) White Blood Count 9.0 K/UL (4.8-10.8) Red Blood Count 3.73 M/UL (4.70-6.10) L Hemoglobin 9.1 G/DL (14.2-18.0) L Hematocrit 28.8 % (42.0-52.0) L Mean Corpuscular Volume 77 FL (80-99) L Mean Corpuscular Hemoglobin 24.2 PG (27.0-31.0) L Mean Corpuscular Hemoglobin Concent 31.4 G/DL (32.0-36.0) L Red Cell Distribution Width 15.6 % (11.6-14.8) H Platelet Count 235 K/UL (150-450) Mean Platelet Volume 8.7 FL (6.5-10.1) Neutrophils (%) (Auto) 73.1 % (45.0-75.0) Lymphocytes (%) (Auto) 13.1 % (20.0-45.0) L Monocytes (%) (Auto) 12.1 % (1.0-10.0) H Eosinophils (%) (Auto) 1.2 % (0.0-3.0) Basophils (%) (Auto) 0.4 % (0.0-2.0) Sodium Level 138 MMOL/L (136-145) Potassium Level 4.2 MMOL/L (3.5-5.1) Chloride Level 105 MMOL/L (98-107) Carbon Dioxide Level 26 MMOL/L (21-32) Anion Gap 7 mmol/L (5-15) Blood Urea Nitrogen 10 mg/dL (7-18) Creatinine 0.8 MG/DL (0.55-1.30) Estimat Glomerular Filtration Rate mL/min (>60) Glucose Level 81 MG/DL (74-106) Calcium Level 8.3 MG/DL (8.5-10.1) L Total Bilirubin 0.6 MG/DL (0.2-1.0) Aspartate Amino Transf (AST/SGOT) 21 U/L (15-37) Alanine Aminotransferase (ALT/SGPT) 15 U/L (12-78) Alkaline Phosphatase 76 U/L (46-116) Total Protein 5.6 G/DL (6.4-8.2) L Albumin 1.9 G/DL (3.4-5.0) L Globulin 3.7 g/dL Albumin/Globulin Ratio 0.5 (1.0-2.7) L Prothrombin Time 10.4 SEC (9.30-11.50) Prothromb Time International Ratio 1.0 (0.9-1.1) Height (Feet): 6 Height (Inches): 0.00 Weight (Pounds): 180 Medications Current Medications Medications (Trade) Dose Ordered Sig/Tierney Route PRN Reason Start Time Stop Time Status Last Admin Dose Admin Acetaminophen/ Hydrocodone Bitart ([place]erry 10/325) 1 tab Q4H PRN ORAL Severe Pain (Pain Scale 7-10) 07/08/17 14:30 07/15/17 14:29 07/09/17 13:40 Amlodipine Besylate (Norvasc) 5 mg DAILY ORAL 07/08/17 09:00 08/07/17 08:59 07/09/17 09:11 Ascorbic Acid (Vitamin C) 250 mg TID ORAL 07/08/17 09:00 08/07/17 08:59 07/09/17 13:40 Aspirin (Ecotrin) 81 mg DAILY ORAL 07/08/17 09:00 08/07/17 08:59 07/09/17 09:12 Atorvastatin Calcium (Lipitor) 10 mg BEDTIME ORAL 07/08/17 21:00 08/07/17 20:59 07/08/17 20:24 Baclofen (Lioresal) 10 mg THREE TIMES A DAY PRN ORAL Muscle Spasm 07/08/17 07:45 08/07/17 07:44 Bisacodyl (Dulcolax) 5 mg DAILYPRN PRN ORAL Constipation 07/08/17 15:15 08/07/17 08:29 Carvedilol (Coreg) 3.125 mg EVERY 12 HOURS ORAL 07/08/17 09:00 08/07/17 08:59 07/09/17 09:12 Docusate Sodium (Colace) 200 mg BIDPRN PRN ORAL Constipation 07/08/17 15:15 08/07/17 08:59 Enoxaparin Sodium (Lovenox) 80 mg Q12HR SUBQ 07/08/17 21:00 08/07/17 20:59 07/09/17 09:13 Ferrous Sulfate (Feosol) 325 mg THREE TIMES A DAY ORAL 07/14/17 09:00 08/13/17 08:59 Finasteride (Proscar) 5 mg DAILY ORAL 07/08/17 09:00 08/07/17 08:59 07/09/17 09:12 Gabapentin (Neurontin) 200 mg EVERY 8 HOURS ORAL 07/08/17 14:00 08/07/17 13:59 07/09/17 13:40 Iron Sucrose 100 mg/Sodium Chloride 60 ml @ 240 mls/hr BEDTIME IV 07/09/17 21:00 07/13/17 21:14 Morphine Sulfate (Morphine Sulfate) 2 mg Q6H PRN IVP Severe Breakthru Pain (>7) 07/08/17 14:30 07/15/17 14:29 07/09/17 10:11 Naloxegol (Movantik) 12.5 mg DAILY ORAL 07/08/17 17:00 08/07/17 16:59 07/09/17 09:10 Nitroglycerin (Ntg) 0.4 mg NEEDED PRN SL Prn Chest Pain 07/08/17 08:00 08/07/17 07:59 Pantoprazole (Protonix) 40 mg ACBREAKFAST ORAL 07/08/17 08:30 08/07/17 08:29 07/09/17 06:43 Piperacillin Sod/ Tazobactam Sod 3.375 gm/Sodium Chloride 110 ml @ 27.5 mls/hr Q8H IVPB 07/09/17 11:30 07/16/17 11:29 07/09/17 12:03 Warfarin Sodium (Coumadin per pharmacy) 1 ea DAILY PRN MISC Per rx protocol 07/09/17 11:45 08/08/17 11:44 Warfarin Sodium (Coumadin) 2.5 mg COUMADIN ONCE ORAL 07/09/17 17:00 07/09/17 17:01 Assessment/Plan Status: stable Assessment/Plan schizophrenia encephalopathy -risperdal 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 Jul 09, 2017 15:45
[2017-07-09 16:00] VITALS: BP 128/56
[2017-07-09] MEDS ORDERED: Warfarin Sodium 2.5mg ORAL ONE (17:00)
[2017-07-09 20:00] VITALS: BP 120/61
--- NOTE | 2017-07-09 20:11 | General Progress Note ---
Assessment/Plan Problem List: (1) Pulmonary embolism ICD Codes: I26.99 - Other pulmonary embolism without acute cor pulmonale SNOMED: 95797582 (2) Pneumonia ICD Codes: J18.9 - Pneumonia, unspecified organism SNOMED: 794056933 (3) Anemia ICD Codes: D64.9 - Anemia, unspecified SNOMED: 080186942 (4) Abdominal pain ICD Codes: R10.9 - Unspecified abdominal pain SNOMED: 01333319 Qualifiers: Qualified Codes: R10.84 - Generalized abdominal pain (5) Thrombocytopenia ICD Codes: D69.6 - Thrombocytopenia, unspecified SNOMED: 242247985 Status: progressing Assessment/Plan pulmonary embolism pna anticoagulation per heme/onc s/p inguinal repair per surgeon the surgical site is not source of fever has pulmonary infarct that can also account for fever Subjective Cardiovascular: Reports: chest pain Allergies: Coded Allergies: No Known Allergies (Unverified , 07/07/17) Objective Last 24 Hour Vital Signs Date Time Temp Pulse Resp B/P (MAP) Pulse Ox O2 Delivery O2 Flow Rate FiO2 07/09/17 18:55 98.5 07/09/17 16:00 98.8 61 19 128/56 99 07/09/17 16:00 98.5 61 19 128/56 99 07/09/17 16:00 54 07/09/17 12:00 60 07/09/17 12:00 98.3 63 19 123/58 98 Room Air 07/09/17 09:12 62 134/57 07/09/17 09:11 62 134/57 07/09/17 08:00 63 07/09/17 08:00 98.9 62 20 134/57 98 Room Air 07/09/17 04:00 97.0 60 20 126/55 98 Room Air 07/09/17 00:00 57 07/08/17 20:24 64 133/64 Intake and Output 07/08/17 07/09/17 19:00 07:00 Intake Total 535 ml 300 ml Balance 535 ml 300 ml Intake Oral 480 ml 300 ml IV Total 55 ml # Voids 2 2 # Bowel Movements 1 Laboratory Tests 07/09/17 11:20: White Blood Count 9.0, Red Blood Count 3.73L, Hemoglobin 9.1L, Hematocrit 28.8L , Mean Corpuscular Volume 77L, Mean Corpuscular Hemoglobin 24.2L, Mean Corpuscular Hemoglobin Concent 31.4L, Red Cell Distribution Width 15.6H, Platelet Count 235, Mean Platelet Volume 8.7, Neutrophils (%) (Auto) 73.1, Lymphocytes (%) (Auto) 13.1L, Monocytes (%) (Auto) 12.1H, Eosinophils (%) (Auto ) 1.2, Basophils (%) (Auto) 0.4, Sodium Level 138, Potassium Level 4.2, Chloride Level 105, Carbon Dioxide Level 26, Anion Gap 7, Blood Urea Nitrogen 10 , Creatinine 0.8, Estimat Glomerular Filtration Rate , Glucose Level 81, Calcium Level 8.3L, Total Bilirubin 0.6, Aspartate Amino Transf (AST/SGOT) 21, Alanine Aminotransferase (ALT/SGPT) 15, Alkaline Phosphatase 76, Total Protein 5.6L, Albumin 1.9L, Globulin 3.7, Albumin/Globulin Ratio 0.5L 07/09/17 12:15: Prothrombin Time 10.4, Prothromb Time International Ratio 1.0 Height (Feet): 6 Height (Inches): 0.00 Weight (Pounds): 180 Respiratory/Chest: lungs clear Mariia Costello MD Jul 09, 2017 20:11
[2017-07-09] MEDS: Iron Sucrose 100 MG in NS 55 ML IV SCH (22:30)
--- NOTE | 2017-07-09 23:30 | Progress Note ---
DATE: 07/09/2017 SUBJECTIVE: The patient is yelling, screaming, presents with disorganized speech and behavior, delusional. . He believes that there is a man going into his room and changing his dress. He has no insight and judgement. The patient is delusional and responds to internal stimuli. MENTAL STATUS EXAMINATION: The patient is alert, oriented times self and place. Mood is agitated, yelling. Affect is constricted. Thought process, there is a paucity of thought content. Thought content, no suicidal or homicidal ideation. Positive for delusion and auditory hallucination. Insight and judgment is impaired. ASSESSMENT: 1. Schizophrenia. 2. Encephalopathy. 3. Agitation. PLAN: 1. We will continue risperidone 2 mg at bedtime. 2. We will continue to follow and readjust the medications. Chica Emanuel M.D. DR: Roshan JOB#: [id number] CC:
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
[2017-07-10] MEDS: Piperacillin/Tazobactam 3.375 GM in NS 110 ML IVPB SCH ×3 (03:30→14:09)
[2017-07-10 04:00] VITALS: BP 128/65
[2017-07-10 08:00] VITALS: BP 129/61
[2017-07-10 08:13] LABS: ANION GAP 8 mmol/L (5-15); BLOOD UREA NITROGEN 10 mg/dL (7-18); CALCIUM 8.2 MG/DL (8.5-10.1); CARBON DIOXIDE 25 MMOL/L (21-32); CHLORIDE 107 MMOL/L (98-107); CREATININE 0.8 MG/DL (0.55-1.30); POTASSIUM 3.9 MMOL/L (3.5-5.1); SODIUM 139 MMOL/L (136-145)
--- NOTE | 2017-07-10 08:37 | Pulmonology Progress Note ---
Assessment/Plan Assessment/Plan pulmonary embolism and infarction no signs of pneumonia probable DVT recent L inguinal hernia repair Started Lovenox dc abx with no fever or WBC start oral AC when ready for DC await duplex scan consult dictated yesterday Subjective ROS Limited/Unobtainable: Yes Constitutional: Reports: no symptoms HEENT: Repors: no symptoms Respiratory: Reports: shortness of breath, pleuritic pain Gastrointestinal/Abdominal: Reports: no symptoms Allergies: Coded Allergies: No Known Allergies (Unverified , 07/07/17) Subjective complains of pain po with assitance not getting oob no bleeding no fever cough painful and not productive Objective Last 24 Hour Vital Signs Date Time Temp Pulse Resp B/P (MAP) Pulse Ox O2 Delivery O2 Flow Rate FiO2 07/10/17 04:00 98.9 74 20 128/65 99 Nasal Cannula 2.0 07/10/17 04:00 55 07/10/17 00:00 59 07/09/17 22:31 78 128/56 07/09/17 20:19 96 Room Air 07/09/17 20:19 Room Air 07/09/17 20:00 54 07/09/17 20:00 97.9 64 20 120/61 97 Nasal Cannula 2.0 07/09/17 18:55 98.5 07/09/17 16:00 98.8 61 19 128/56 99 07/09/17 16:00 98.5 61 19 128/56 99 07/09/17 16:00 54 07/09/17 12:00 60 07/09/17 12:00 98.3 63 19 123/58 98 Room Air 07/09/17 09:12 62 134/57 07/09/17 09:11 62 134/57 Intake and Output 07/09/17 07/10/17 19:00 07:00 Intake Total 240 ml 110.0 ml Balance 240 ml 110.0 ml Intake Oral 240 ml IV Total 110.0 ml # Voids 2 # Bowel Movements 1 1 General Appearance: cachetic HEENT: atraumatic, anicteric Respiratory/Chest: rhonchi Cardiovascular: normal rate, regular rhythm Abdomen: soft, non tender, no organomegaly Skin: no rash, no ulcers Neurologic/Psychiatric: alert, oriented x 3 Microbiology Date/Time Source Procedure Growth Status 07/08/17 00:40 Blood Blood Culture - Preliminary Resulted 07/08/17 00:10 Blood Blood Culture - Preliminary NO GROWTH AFTER 24 HOURS Resulted 07/08/17 14:00 Sputum Gram Stain - Final Resulted 07/08/17 14:00 Sputum Sputum Culture Pending Resulted 07/08/17 00:40 Nasal Nares Influenza Types A,B Antigen (ANANDA) - Final Complete Laboratory Tests 07/09/17 11:20: White Blood Count 9.0, Red Blood Count 3.73L, Hemoglobin 9.1L, Hematocrit 28.8L , Mean Corpuscular Volume 77L, Mean Corpuscular Hemoglobin 24.2L, Mean Corpuscular Hemoglobin Concent 31.4L, Red Cell Distribution Width 15.6H, Platelet Count 235, Mean Platelet Volume 8.7, Neutrophils (%) (Auto) 73.1, Lymphocytes (%) (Auto) 13.1L, Monocytes (%) (Auto) 12.1H, Eosinophils (%) (Auto ) 1.2, Basophils (%) (Auto) 0.4, Sodium Level 138, Potassium Level 4.2, Chloride Level 105, Carbon Dioxide Level 26, Anion Gap 7, Blood Urea Nitrogen 10 , Creatinine 0.8, Estimat Glomerular Filtration Rate , Glucose Level 81, Calcium Level 8.3L, Total Bilirubin 0.6, Aspartate Amino Transf (AST/SGOT) 21, Alanine Aminotransferase (ALT/SGPT) 15, Alkaline Phosphatase 76, Total Protein 5.6L, Albumin 1.9L, Globulin 3.7, Albumin/Globulin Ratio 0.5L 07/09/17 12:15: Prothrombin Time 10.4, Prothromb Time International Ratio 1.0 07/10/17 06:17: Prothrombin Time 10.4, Prothromb Time International Ratio 1.0 Current Medications Medications (Trade) Dose Ordered Sig/Tierney Route PRN Reason Start Time Stop Time Status Last Admin Dose Admin Acetaminophen/ Hydrocodone Bitart ([place] 10/325) 1 tab Q4H PRN ORAL Severe Pain (Pain Scale 7-10) 07/08/17 14:30 07/15/17 14:29 07/09/17 13:40 Amlodipine Besylate (Norvasc) 5 mg DAILY ORAL 07/08/17 09:00 08/07/17 08:59 07/09/17 09:11 Ascorbic Acid (Vitamin C) 250 mg TID ORAL 2/1/18 09:00 08/07/17 08:59 07/09/17 18:18 Aspirin (Ecotrin) 81 mg DAILY ORAL 07/08/17 09:00 08/07/17 08:59 07/09/17 09:12 Atorvastatin Calcium (Lipitor) 10 mg BEDTIME ORAL 07/08/17 21:00 08/07/17 20:59 07/09/17 22:31 Baclofen (Lioresal) 10 mg THREE TIMES A DAY PRN ORAL Muscle Spasm 07/08/17 07:45 08/07/17 07:44 Bisacodyl (Dulcolax) 5 mg DAILYPRN PRN ORAL Constipation 07/08/17 15:15 08/07/17 08:29 Carvedilol (Coreg) 3.125 mg EVERY 12 HOURS ORAL 07/08/17 09:00 08/07/17 08:59 07/09/17 22:31 Docusate Sodium (Colace) 200 mg BIDPRN PRN ORAL Constipation 07/08/17 15:15 08/07/17 08:59 Enoxaparin Sodium (Lovenox) 80 mg Q12HR SUBQ 07/08/17 21:00 08/07/17 20:59 07/09/17 22:34 Ferrous Sulfate (Feosol) 325 mg THREE TIMES A DAY ORAL 07/14/17 09:00 08/13/17 08:59 Finasteride (Proscar) 5 mg DAILY ORAL 07/08/17 09:00 08/07/17 08:59 07/09/17 09:12 Gabapentin (Neurontin) 200 mg EVERY 8 HOURS ORAL 07/08/17 14:00 08/07/17 13:59 07/10/17 06:00 Iron Sucrose 100 mg/Sodium Chloride 60 ml @ 240 mls/hr BEDTIME IV 07/09/17 21:00 07/13/17 21:14 07/09/17 22:30 Morphine Sulfate (Morphine Sulfate) 2 mg Q6H PRN IVP Severe Breakthru Pain (>7) 07/08/17 14:30 07/15/17 14:29 07/09/17 18:25 Naloxegol (Movantik) 12.5 mg DAILY ORAL 07/08/17 17:00 08/07/17 16:59 07/09/17 09:10 Nitroglycerin (Ntg) 0.4 mg NEEDED PRN SL Prn Chest Pain 07/08/17 08:00 08/07/17 07:59 Pantoprazole (Protonix) 40 mg ACBREAKFAST ORAL 07/08/17 08:30 08/07/17 08:29 07/10/17 06:00 Piperacillin Sod/ Tazobactam Sod 3.375 gm/Sodium Chloride 110 ml @ 27.5 mls/hr Q8H IVPB 07/10/17 05:00 07/17/17 04:59 07/10/17 05:00 Risperidone (RisperDAL) 2 mg BEDTIME ORAL 07/09/17 21:00 08/08/17 20:59 07/09/17 22:31 Warfarin Sodium (Coumadin per pharmacy) 1 ea DAILY PRN MISC Per rx protocol 07/09/17 11:45 08/08/17 11:44 ARIEL HARMON DO Jul 10, 2017 08:37
[2017-07-10 08:49] LABS: BASOPHILS % (AUTO) 0.8 % (0.0-2.0); EOSINOPHILS % (AUTO) 1.5 % (0.0-3.0); HEMATOCRIT 26.2 % (42.0-52.0); HEMOGLOBIN 8.2 G/DL (14.2-18.0); MEAN CORPUSCULAR VOLUME 76 FL (80-99); NEUTROPHILS % (AUTO) 60.8 % (45.0-75.0); PLATELET COUNT 169 K/UL (150-450); RED BLOOD COUNT 3.45 M/UL (4.70-6.10); RED CELL DISTRIBUTION WIDTH 15.4 % (11.6-14.8); WHITE BLOOD COUNT 6.2 K/UL (4.8-10.8)
[2017-07-10] MEDS: Enoxaparin 80mg Inj SUBQ SCH (09:20)
[2017-07-10] MEDS: Aspirin EC 81mg tab ORAL SCH (09:21)
[2017-07-10] MEDS: Naloxegol Oxalate 25mg tab ORAL SCH (09:21)
[2017-07-10] MEDS: Ascorbic Acid 500mg tab ORAL SCH ×3 (09:21→17:50)
[2017-07-10] MEDS: Morphine Sulfate 4mg/ml Inj IVP PRN ×2 (10:11→17:51)
--- NOTE | 2017-07-10 11:40 | General Surgery Progress Note ---
General Surgery-Progress Note Subjective Symptoms: improved Additional Comments no acute events. comfortable. Objective Last 24 Hour Vital Signs Date Time Temp Pulse Resp B/P (MAP) Pulse Ox O2 Delivery O2 Flow Rate FiO2 07/10/17 10:41 98.9 07/10/17 09:22 58 129/61 07/10/17 09:22 58 129/61 07/10/17 08:00 60 07/10/17 08:00 95.9 58 18 129/61 94 Nasal Cannula 2.0 74 07/10/17 04:00 98.9 74 20 128/65 99 Nasal Cannula 2.0 07/10/17 04:00 55 07/10/17 00:00 59 07/09/17 22:31 78 128/56 07/09/17 20:19 96 Room Air 07/09/17 20:19 Room Air 07/09/17 20:00 54 07/09/17 20:00 97.9 64 20 120/61 97 Nasal Cannula 2.0 07/09/17 18:55 98.5 07/09/17 16:00 98.8 61 19 128/56 99 07/09/17 16:00 98.5 61 19 128/56 99 07/09/17 16:00 54 07/09/17 12:00 60 07/09/17 12:00 98.3 63 19 123/58 98 Room Air I&O Intake and Output 07/09/17 07/10/17 19:00 07:00 Intake Total 240 ml 110.0 ml Balance 240 ml 110.0 ml Intake Oral 240 ml IV Total 110.0 ml # Voids 2 # Bowel Movements 1 1 Cardiovascular: RSR Respiratory: clear Abdomen: soft, flat, non-tender, present bowel sounds, other - left groin incision c/d/i. no erythema. no edema. non tender. will plan to remove mehul tomorrow. Extremities: no tenderness Laboratory Tests Test 07/09/17 12:15 07/10/17 06:17 Prothrombin Time 10.4 SEC (9.30-11.50) 10.4 SEC (9.30-11.50) Prothromb Time International Ratio 1.0 (0.9-1.1) 1.0 (0.9-1.1) White Blood Count 6.2 K/UL (4.8-10.8) Red Blood Count 3.45 M/UL (4.70-6.10) L Hemoglobin 8.2 G/DL (14.2-18.0) L Hematocrit 26.2 % (42.0-52.0) L Mean Corpuscular Volume 76 FL (80-99) L Mean Corpuscular Hemoglobin 23.8 PG (27.0-31.0) L Mean Corpuscular Hemoglobin Concent 31.4 G/DL (32.0-36.0) L Red Cell Distribution Width 15.4 % (11.6-14.8) H Platelet Count 169 K/UL (150-450) Mean Platelet Volume 9.5 FL (6.5-10.1) Neutrophils (%) (Auto) 60.8 % (45.0-75.0) Lymphocytes (%) (Auto) 22.0 % (20.0-45.0) Monocytes (%) (Auto) 15.0 % (1.0-10.0) H Eosinophils (%) (Auto) 1.5 % (0.0-3.0) Basophils (%) (Auto) 0.8 % (0.0-2.0) Sodium Level 139 MMOL/L (136-145) Potassium Level 3.9 MMOL/L (3.5-5.1) Chloride Level 107 MMOL/L (98-107) Carbon Dioxide Level 25 MMOL/L (21-32) Anion Gap 8 mmol/L (5-15) Blood Urea Nitrogen 10 mg/dL (7-18) Creatinine 0.8 MG/DL (0.55-1.30) Estimat Glomerular Filtration Rate mL/min (>60) Glucose Level 59 MG/DL (74-106) L Calcium Level 8.2 MG/DL (8.5-10.1) L Plan Problems: (1) Abdominal pain Assessment & Plan: 87M with fever, abd pain, cough, pna, recent history of left inguinal hernia repair for incarceration. currently stable. noted to be anemic and thrombocytopenic on labs. no leukocytosis. abdominal exam benign. left inguinal wound clean, dry, intact without signs of active infection. CXR with possible pneumonia. CT reviewed and small 4cm fluid collection likely seroma. no surrounding inflammation and exam very benign. very unlikely to be abscess CT chest with PE. -Abx d/c -Started on Tx for PE -no acute surgical intervention necessary -will follow exam and with recs. thank you for this consultation. Abhay Thomson Jul 10, 2017 11:40
[2017-07-10 12:00] VITALS: BP 130/70
[2017-07-10] MEDS ORDERED: Tubing IV Secondary IV ONE (12:47)
[2017-07-10] MEDS ORDERED: NS 500ML ONE (12:47)
--- NOTE | 2017-07-10 14:46 | General Progress Note ---
Assessment/Plan Problem List: (1) Pulmonary embolism ICD Codes: I26.99 - Other pulmonary embolism without acute cor pulmonale SNOMED: 20922121 (2) Pneumonia ICD Codes: J18.9 - Pneumonia, unspecified organism SNOMED: 474607401 (3) Anemia ICD Codes: D64.9 - Anemia, unspecified SNOMED: 676183731 (4) Abdominal pain ICD Codes: R10.9 - Unspecified abdominal pain SNOMED: 52535905 Qualifiers: Qualified Codes: R10.84 - Generalized abdominal pain (5) Thrombocytopenia ICD Codes: D69.6 - Thrombocytopenia, unspecified SNOMED: 678864848 Status: progressing Assessment/Plan pulmonary embolism pna afebrile s/p recent inguinal hernia repair which does not appear to be source of fever reviewed chart and labs Subjective ROS Limited/Unobtainable: Yes Allergies: Coded Allergies: No Known Allergies (Unverified , 07/07/17) Objective Last 24 Hour Vital Signs Date Time Temp Pulse Resp B/P (MAP) Pulse Ox O2 Delivery O2 Flow Rate FiO2 07/10/17 10:41 98.9 07/10/17 09:22 58 129/61 07/10/17 09:22 58 129/61 07/10/17 08:00 60 07/10/17 08:00 95.9 58 18 129/61 94 Nasal Cannula 2.0 74 07/10/17 04:00 98.9 74 20 128/65 99 Nasal Cannula 2.0 07/10/17 04:00 55 07/10/17 00:00 59 07/09/17 22:31 78 128/56 07/09/17 20:19 96 Room Air 07/09/17 20:19 Room Air 07/09/17 20:00 54 07/09/17 20:00 97.9 64 20 120/61 97 Nasal Cannula 2.0 07/09/17 18:55 98.5 07/09/17 16:00 98.8 61 19 128/56 99 07/09/17 16:00 98.5 61 19 128/56 99 07/09/17 16:00 54 Intake and Output 07/09/17 07/10/17 19:00 07:00 Intake Total 240 ml 110.0 ml Balance 240 ml 110.0 ml Intake Oral 240 ml IV Total 110.0 ml # Voids 2 # Bowel Movements 1 1 Laboratory Tests 07/10/17 06:17: White Blood Count 6.2, Red Blood Count 3.45L, Hemoglobin 8.2L, Hematocrit 26.2L , Mean Corpuscular Volume 76L, Mean Corpuscular Hemoglobin 23.8L, Mean Corpuscular Hemoglobin Concent 31.4L, Red Cell Distribution Width 15.4H, Platelet Count 169, Mean Platelet Volume 9.5, Neutrophils (%) (Auto) 60.8, Lymphocytes (%) (Auto) 22.0, Monocytes (%) (Auto) 15.0H, Eosinophils (%) (Auto) 1.5, Basophils (%) (Auto) 0.8, Prothrombin Time 10.4, Prothromb Time International Ratio 1.0, Sodium Level 139, Potassium Level 3.9, Chloride Level 107, Carbon Dioxide Level 25, Anion Gap 8, Blood Urea Nitrogen 10, Creatinine 0.8, Estimat Glomerular Filtration Rate , Glucose Level 59L, Calcium Level 8.2L Height (Feet): 6 Height (Inches): 0.00 Weight (Pounds): 180 Cardiovascular: normal rate Respiratory/Chest: lungs clear Abdomen: soft Mariia Costello MD Jul 10, 2017 14:46
[2017-07-10 16:00] VITALS: BP 135/90
[2017-07-10] MEDS ORDERED: Warfarin Sodium 2.5mg ORAL ONE (17:00)
[2017-07-10 20:00] VITALS: BP 131/64
[2017-07-11] VITALS: BP 135/71
[2017-07-11] MEDS: Enoxaparin 80mg Inj SUBQ SCH ×3 (00:26→20:18)
[2017-07-11] MEDS ORDERED: Morphine Sulfate 2mg/ml Inj IVP PRN (00:30)
[2017-07-11] MEDS: Iron Sucrose 100 MG in NS 55 ML IV SCH ×2 (00:30→20:16)
[2017-07-11] MEDS: Piperacillin/Tazobactam 3.375 GM in NS 110 ML IVPB SCH ×4 (00:34→21:26)
--- NOTE | 2017-07-11 01:32 | General Progress Note ---
Assessment/Plan Assessment/Plan #. Pulmonary embolism. --> Start treatment on Lovenox and Coumadin --> Monitor closely. #. Anemia due to underlying iron deficiency. --> Anemia workup reviewed. --> Currently, no evidence of hemolysis. --> Creatinine is stable at this time. #. Thrombocytopenia, platelet count of 86,000, currently up trending. --> Resolved. --> Continue to closely monitor. --> Consider human immunodeficiency and hepatitis panel if does not improve. #. Leukocytosis. --> Resolved. #. Pneumonia related to pneumonia infection contributing to leukocytosis. #. Chest pain. #. Abdominal pain. Subjective Date patient seen: Jul 09, 2017 Constitutional: Denies: no symptoms, chills, diaphoresis, fever, malaise, weakness, other HEENT: Denies: no symptoms, eye pain, blurred vision, tearing, double vision, ear pain, ear discharge, nose pain, nose congestion, throat pain, throat swelling, mouth pain, mouth swelling, other Cardiovascular: Denies: no symptoms, chest pain, edema, irregular heart rate, lightheadedness, palpitations, syncope, other Respiratory: Denies: no symptoms, cough, orthopnea, shortness of breath, SOB with excertion, SOB at rest, sputum, stridor, wheezing, other Gastrointestinal/Abdominal: Denies: no symptoms, abdomen distended, abdominal pain, black stools, tarry stools, blood in stool, constipated, diarrhea, difficulty swallowing, nausea, poor appetite, poor fluid intake, rectal bleeding , vomiting, other Genitourinary: Denies: no symptoms, burning, discharge, frequency, flank pain, hematuria, incontinence, pain, urgency, other Neurologic/Psychiatric: Denies: no symptoms, anxiety, depressed, emotional problems, headache, numbness, paresthesia, pre-existing deficit, seizure, tingling, tremors, weakness, other Allergies: Coded Allergies: No Known Allergies (Unverified , 07/07/17) Subjective On blood thinners. No fever. Objective Last 24 Hour Vital Signs Date Time Temp Pulse Resp B/P (MAP) Pulse Ox O2 Delivery O2 Flow Rate FiO2 07/11/17 00:28 70 131/64 07/10/17 20:00 99.6 70 20 131/64 96 07/10/17 20:00 99.6 70 20 131/64 96 Nasal Cannula 2.0 07/10/17 19:00 Nasal Cannula 2.0 28 07/10/17 19:00 98 Nasal Cannula 2.0 28 07/10/17 18:20 98.9 07/10/17 16:00 97.1 90 19 135/90 98 Nasal Cannula 2.0 07/10/17 16:00 64 07/10/17 12:00 60 07/10/17 12:00 97.3 83 20 130/70 98 Nasal Cannula 2.0 07/10/17 09:22 58 129/61 07/10/17 09:22 58 129/61 07/10/17 08:00 60 07/10/17 08:00 95.9 58 18 129/61 94 Nasal Cannula 2.0 74 07/10/17 04:00 98.9 74 20 128/65 99 Nasal Cannula 2.0 07/10/17 04:00 55 Intake and Output 07/10/17 07/11/17 19:00 07:00 Intake Total 873.0 ml Balance 873.0 ml Intake Oral 708 ml IV Total 165.0 ml # Voids 3 # Bowel Movements 1 Laboratory Tests 07/10/17 06:17: White Blood Count 6.2, Red Blood Count 3.45L, Hemoglobin 8.2L, Hematocrit 26.2L , Mean Corpuscular Volume 76L, Mean Corpuscular Hemoglobin 23.8L, Mean Corpuscular Hemoglobin Concent 31.4L, Red Cell Distribution Width 15.4H, Platelet Count 169, Mean Platelet Volume 9.5, Neutrophils (%) (Auto) 60.8, Lymphocytes (%) (Auto) 22.0, Monocytes (%) (Auto) 15.0H, Eosinophils (%) (Auto) 1.5, Basophils (%) (Auto) 0.8, Prothrombin Time 10.4, Prothromb Time International Ratio 1.0, Sodium Level 139, Potassium Level 3.9, Chloride Level 107, Carbon Dioxide Level 25, Anion Gap 8, Blood Urea Nitrogen 10, Creatinine 0.8, Estimat Glomerular Filtration Rate , Glucose Level 59L, Calcium Level 8.2L Height (Feet): 6 Height (Inches): 0.00 Weight (Pounds): 180 General Appearance: confused EENT: normal ENT inspection Neck: supple Cardiovascular: normal rate, regular rhythm Respiratory/Chest: lungs clear Michele Isabel Jul 11, 2017 01:32
--- NOTE | 2017-07-11 01:37 | General Progress Note ---
Assessment/Plan Status: unchanged Assessment/Plan #. Pulmonary embolism. --> Start treatment on Lovenox and Coumadin --> Monitor closely. #. Anemia due to underlying iron deficiency. --> Anemia workup reviewed. Has not needed blood transfusion. --> Currently, no evidence of hemolysis. --> Creatinine is stable at this time. #. Thrombocytopenia, platelet count of 86,000, improved. --> Resolved. --> Continue to closely monitor. --> Consider human immunodeficiency and hepatitis panel if does not improve. #. Leukocytosis. --> Resolved. #. Pneumonia related to pneumonia infection contributing to leukocytosis. #. Chest pain. #. Abdominal pain. Subjective Date patient seen: Jul 10, 2017 Allergies: Coded Allergies: No Known Allergies (Unverified , 07/07/17) Subjective On blood thinners. No new events overnight. Objective Last 24 Hour Vital Signs Date Time Temp Pulse Resp B/P (MAP) Pulse Ox O2 Delivery O2 Flow Rate FiO2 07/11/17 00:28 70 131/64 07/10/17 20:00 99.6 70 20 131/64 96 07/10/17 20:00 99.6 70 20 131/64 96 Nasal Cannula 2.0 07/10/17 19:00 Nasal Cannula 2.0 28 07/10/17 19:00 98 Nasal Cannula 2.0 28 07/10/17 18:20 98.9 07/10/17 16:00 97.1 90 19 135/90 98 Nasal Cannula 2.0 07/10/17 16:00 64 07/10/17 12:00 60 07/10/17 12:00 97.3 83 20 130/70 98 Nasal Cannula 2.0 07/10/17 09:22 58 129/61 07/10/17 09:22 58 129/61 07/10/17 08:00 60 07/10/17 08:00 95.9 58 18 129/61 94 Nasal Cannula 2.0 74 07/10/17 04:00 98.9 74 20 128/65 99 Nasal Cannula 2.0 07/10/17 04:00 55 Intake and Output 07/10/17 07/11/17 19:00 07:00 Intake Total 873.0 ml Balance 873.0 ml Intake Oral 708 ml IV Total 165.0 ml # Voids 3 # Bowel Movements 1 Laboratory Tests 07/10/17 06:17: White Blood Count 6.2, Red Blood Count 3.45L, Hemoglobin 8.2L, Hematocrit 26.2L , Mean Corpuscular Volume 76L, Mean Corpuscular Hemoglobin 23.8L, Mean Corpuscular Hemoglobin Concent 31.4L, Red Cell Distribution Width 15.4H, Platelet Count 169, Mean Platelet Volume 9.5, Neutrophils (%) (Auto) 60.8, Lymphocytes (%) (Auto) 22.0, Monocytes (%) (Auto) 15.0H, Eosinophils (%) (Auto) 1.5, Basophils (%) (Auto) 0.8, Prothrombin Time 10.4, Prothromb Time International Ratio 1.0, Sodium Level 139, Potassium Level 3.9, Chloride Level 107, Carbon Dioxide Level 25, Anion Gap 8, Blood Urea Nitrogen 10, Creatinine 0.8, Estimat Glomerular Filtration Rate , Glucose Level 59L, Calcium Level 8.2L Height (Feet): 6 Height (Inches): 0.00 Weight (Pounds): 180 Cardiovascular: normal rate Respiratory/Chest: lungs clear Abdomen: non tender, soft Michele Isabel Jul 11, 2017 01:37
[2017-07-11 04:00] VITALS: BP 121/56
[2017-07-11 08:00] VITALS: BP 113/64
--- NOTE | 2017-07-11 08:00 | Pulmonology Progress Note ---
Assessment/Plan Assessment/Plan pulmonary embolism and infarction no signs of pneumonia probable DVT recent L inguinal hernia repair Started Lovenox, coumadin per rx would dc abx with no fever or WBC check ra sat oob with pt po as tolerated duplex reprot not in EMR-will fu with radiology Subjective ROS Limited/Unobtainable: No HEENT: Repors: no symptoms Respiratory: Reports: shortness of breath Cardiovascular: Reports: chest pain Genitourinary: Reports: no symptoms Neurologic: Reports: no symptoms Skin: Reports: no symptoms Endocrine: Reports: no symptoms Allergies: Coded Allergies: No Known Allergies (Unverified , 07/07/17) Subjective complains of pain with deep inspraition po toelrated not getting oob no bleeding no fever cough painful and not productive remains on o2 Objective Last 24 Hour Vital Signs Date Time Temp Pulse Resp B/P (MAP) Pulse Ox O2 Delivery O2 Flow Rate FiO2 07/11/17 04:00 99.5 54 19 121/56 98 Nasal Cannula 2.0 07/11/17 04:00 57 07/11/17 00:28 70 131/64 07/11/17 00:00 99.1 64 19 135/71 97 Nasal Cannula 2.0 07/11/17 00:00 65 07/10/17 20:00 99.6 70 20 131/64 96 07/10/17 20:00 99.6 70 20 131/64 96 Nasal Cannula 2.0 07/10/17 20:00 60 07/10/17 19:00 Nasal Cannula 2.0 28 07/10/17 19:00 98 Nasal Cannula 2.0 28 07/10/17 18:20 98.9 07/10/17 16:00 97.1 90 19 135/90 98 Nasal Cannula 2.0 07/10/17 16:00 64 07/10/17 12:00 60 07/10/17 12:00 97.3 83 20 130/70 98 Nasal Cannula 2.0 07/10/17 09:22 58 129/61 07/10/17 09:22 58 129/61 07/10/17 08:00 60 07/10/17 08:00 95.9 58 18 129/61 94 Nasal Cannula 2.0 74 Intake and Output 07/10/17 07/11/17 19:00 07:00 Intake Total 873.0 ml 320 ml Balance 873.0 ml 320 ml Intake Oral 708 ml 320 ml IV Total 165.0 ml # Voids 3 2 # Bowel Movements 1 1 General Appearance: WD/WN HEENT: atraumatic, anicteric Respiratory/Chest: lungs clear, normal breath sounds Cardiovascular: normal rate, regular rhythm Abdomen: soft, non tender, no organomegaly Neurologic/Psychiatric: abnormal gait, alert, oriented x 3 Microbiology Date/Time Source Procedure Growth Status 07/08/17 14:00 Sputum Gram Stain - Final Resulted 07/08/17 14:00 Sputum Sputum Culture - Preliminary NORMAL UPPER RESPIRATORY CARLOS AT 24 ... Resulted Laboratory Tests 07/11/17 05:45: Prothrombin Time [Pending], Prothromb Time International Ratio [Pending] Current Medications Medications (Trade) Dose Ordered Sig/Tierney Route PRN Reason Start Time Stop Time Status Last Admin Dose Admin Acetaminophen/ Hydrocodone Bitart ([place] 10/325) 1 tab Q4H PRN ORAL Severe Pain (Pain Scale 7-10) 07/08/17 14:30 07/15/17 14:29 07/09/17 13:40 Amlodipine Besylate (Norvasc) 5 mg DAILY ORAL 07/08/17 09:00 08/07/17 08:59 07/10/17 09:22 Ascorbic Acid (Vitamin C) 250 mg TID ORAL 07/08/17 09:00 08/07/17 08:59 07/10/17 17:50 Aspirin (Ecotrin) 81 mg DAILY ORAL 07/08/17 09:00 08/07/17 08:59 07/10/17 09:21 Atorvastatin Calcium (Lipitor) 10 mg BEDTIME ORAL 07/08/17 21:00 08/07/17 20:59 07/11/17 00:29 Baclofen (Lioresal) 10 mg THREE TIMES A DAY PRN ORAL Muscle Spasm 07/08/17 07:45 08/07/17 07:44 Bisacodyl (Dulcolax) 5 mg DAILYPRN PRN ORAL Constipation 07/08/17 15:15 08/07/17 08:29 Carvedilol (Coreg) 3.125 mg EVERY 12 HOURS ORAL 07/08/17 09:00 08/07/17 08:59 07/11/17 00:28 Docusate Sodium (Colace) 200 mg BIDPRN PRN ORAL Constipation 07/08/17 15:15 08/07/17 08:59 Enoxaparin Sodium (Lovenox) 80 mg Q12HR SUBQ 07/08/17 21:00 08/07/17 20:59 07/11/17 00:26 Ferrous Sulfate (Feosol) 325 mg THREE TIMES A DAY ORAL 07/14/17 09:00 08/13/17 08:59 Finasteride (Proscar) 5 mg DAILY ORAL 07/08/17 09:00 08/07/17 08:59 07/10/17 09:21 Gabapentin (Neurontin) 200 mg EVERY 8 HOURS ORAL 07/08/17 14:00 08/07/17 13:59 07/11/17 06:15 Iron Sucrose 100 mg/Sodium Chloride 60 ml @ 240 mls/hr BEDTIME IV 07/09/17 21:00 07/13/17 21:14 07/11/17 00:30 Morphine Sulfate (Morphine Sulfate) 2 mg Q6H PRN IVP Severe Breakthru Pain (>7) 07/11/17 00:30 07/18/17 00:29 Naloxegol (Movantik) 12.5 mg DAILY ORAL 07/08/17 17:00 08/07/17 16:59 07/10/17 09:21 Nitroglycerin (Ntg) 0.4 mg NEEDED PRN SL Prn Chest Pain 07/08/17 08:00 08/07/17 07:59 Pantoprazole (Protonix) 40 mg ACBREAKFAST ORAL 07/08/17 08:30 08/07/17 08:29 07/11/17 06:15 Piperacillin Sod/ Tazobactam Sod 3.375 gm/Sodium Chloride 110 ml @ 27.5 mls/hr Q8H IVPB 07/10/17 05:00 07/17/17 04:59 07/11/17 05:45 Risperidone (RisperDAL) 2 mg BEDTIME ORAL 07/09/17 21:00 08/08/17 20:59 07/11/17 00:29 Warfarin Sodium (Coumadin per pharmacy) 1 ea DAILY PRN MISC Per rx protocol 07/09/17 11:45 08/08/17 11:44 ARIEL HARMONb 4, 2018 08:00
[2017-07-11] MEDS ORDERED: Morphine Sulfate 4mg/ml Inj ONE (08:08)
[2017-07-11] MEDS: Aspirin EC 81mg tab ORAL SCH (08:14)
[2017-07-11] MEDS: Ascorbic Acid 500mg tab ORAL SCH ×3 (08:14→17:40)
[2017-07-11] MEDS: Naloxegol Oxalate 25mg tab ORAL SCH (08:15)
[2017-07-11] MEDS: Morphine Sulfate 4mg/ml Inj IVP PRN ×2 (08:22→17:41)
--- NOTE | 2017-07-11 09:59 | Infectious Diseases Prog Note ---
Assessment/Plan Assessment/Plan A; Pulmonary emboli Intraabdominal abscess/ infected seroma Bacteremia with Strep Pneumonia/ atelectasis Anemia DM type 2 P; Continue Zosyn Subjective ROS Limited/Unobtainable: No Constitutional: Reports: no symptoms Respiratory: Reports: dry cough Cardiovascular: Reports: no symptoms Musculoskeletal: Reports: pain Allergies: Coded Allergies: No Known Allergies (Unverified , 07/07/17) Objective Vital Signs Last 24 Hour Vital Signs Date Time Temp Pulse Resp B/P (MAP) Pulse Ox O2 Delivery O2 Flow Rate FiO2 07/11/17 08:52 97.7 07/11/17 08:15 60 113/64 07/11/17 08:14 60 113/64 07/11/17 08:00 97.7 60 16 113/64 96 Nasal Cannula 2.0 07/11/17 08:00 65 07/11/17 04:00 99.5 54 19 121/56 98 Nasal Cannula 2.0 07/11/17 04:00 57 07/11/17 00:28 70 131/64 07/11/17 00:00 99.1 64 19 135/71 97 Nasal Cannula 2.0 07/11/17 00:00 65 07/10/17 20:00 99.6 70 20 131/64 96 07/10/17 20:00 99.6 70 20 131/64 96 Nasal Cannula 2.0 07/10/17 20:00 60 07/10/17 19:00 Nasal Cannula 2.0 28 07/10/17 19:00 98 Nasal Cannula 2.0 28 07/10/17 18:20 98.9 07/10/17 16:00 97.1 90 19 135/90 98 Nasal Cannula 2.0 07/10/17 16:00 64 07/10/17 12:00 60 07/10/17 12:00 97.3 83 20 130/70 98 Nasal Cannula 2.0 Height (Feet): 6 Height (Inches): 0.00 Weight (Pounds): 180 General Appearance: no acute distress HEENT: mucous membranes moist Respiratory/Chest: lungs clear Cardiovascular: normal rate Abdomen: soft, non tender Extremities: no edema Neurologic/Psychiatric: alert, oriented x 3, responsive Microbiology Date/Time Source Procedure Growth Status 07/08/17 14:00 Sputum Gram Stain - Final Resulted 07/08/17 14:00 Sputum Sputum Culture - Preliminary NORMAL UPPER RESPIRATORY CARLOS AT 24 ... Resulted Laboratory Tests Test 07/11/17 05:45 Prothrombin Time 10.5 SEC (9.30-11.50) Prothromb Time International Ratio 1.0 (0.9-1.1) Current Medications Medications (Trade) Dose Ordered Sig/Tierney Route PRN Reason Start Time Stop Time Status Last Admin Dose Admin Acetaminophen/ Hydrocodone Bitart ([place] 10/325) 1 tab Q4H PRN ORAL Severe Pain (Pain Scale 7-10) 07/08/17 14:30 07/15/17 14:29 07/09/17 13:40 Amlodipine Besylate (Norvasc) 5 mg DAILY ORAL 07/08/17 09:00 08/07/17 08:59 07/11/17 08:15 Ascorbic Acid (Vitamin C) 250 mg TID ORAL 07/08/17 09:00 08/07/17 08:59 07/11/17 08:14 Aspirin (Ecotrin) 81 mg DAILY ORAL 07/08/17 09:00 08/07/17 08:59 07/11/17 08:14 Atorvastatin Calcium (Lipitor) 10 mg BEDTIME ORAL 07/08/17 21:00 08/07/17 20:59 07/11/17 00:29 Baclofen (Lioresal) 10 mg THREE TIMES A DAY PRN ORAL Muscle Spasm 07/08/17 07:45 08/07/17 07:44 Bisacodyl (Dulcolax) 5 mg DAILYPRN PRN ORAL Constipation 07/08/17 15:15 08/07/17 08:29 Carvedilol (Coreg) 3.125 mg EVERY 12 HOURS ORAL 07/08/17 09:00 08/07/17 08:59 07/11/17 08:14 Docusate Sodium (Colace) 200 mg BIDPRN PRN ORAL Constipation 07/08/17 15:15 08/07/17 08:59 Enoxaparin Sodium (Lovenox) 80 mg Q12HR SUBQ 07/08/17 21:00 08/07/17 20:59 07/11/17 08:21 Ferrous Sulfate (Feosol) 325 mg THREE TIMES A DAY ORAL 07/14/17 09:00 08/13/17 08:59 Finasteride (Proscar) 5 mg DAILY ORAL 07/08/17 09:00 08/07/17 08:59 07/11/17 08:14 Gabapentin (Neurontin) 200 mg EVERY 8 HOURS ORAL 07/08/17 14:00 08/07/17 13:59 07/11/17 06:15 Iron Sucrose 100 mg/Sodium Chloride 60 ml @ 240 mls/hr BEDTIME IV 07/09/17 21:00 07/13/17 21:14 07/11/17 00:30 Morphine Sulfate (Morphine Sulfate) 2 mg Q6H PRN IVP Severe Breakthru Pain (>7) 07/11/17 08:30 07/18/17 00:29 07/11/17 08:22 Naloxegol (Movantik) 12.5 mg DAILY ORAL 07/08/17 17:00 08/07/17 16:59 07/11/17 08:15 Nitroglycerin (Ntg) 0.4 mg NEEDED PRN SL Prn Chest Pain 07/08/17 08:00 08/07/17 07:59 Pantoprazole (Protonix) 40 mg ACBREAKFAST ORAL 07/08/17 08:30 08/07/17 08:29 07/11/17 06:15 Piperacillin Sod/ Tazobactam Sod 3.375 gm/Sodium Chloride 110 ml @ 27.5 mls/hr Q8H IVPB 07/10/17 05:00 07/17/17 04:59 07/11/17 05:45 Risperidone (RisperDAL) 2 mg BEDTIME ORAL 07/09/17 21:00 08/08/17 20:59 07/11/17 00:29 Warfarin Sodium (Coumadin per pharmacy) 1 ea DAILY PRN MISC Per rx protocol 07/09/17 11:45 08/08/17 11:44 Warfarin Sodium (Coumadin) 5 mg COUMADIN ORAL 07/11/17 17:00 07/11/17 17:01 JIN ABBASI Jul 11, 2017 09:58
--- NOTE | 2017-07-11 11:01 | General Progress Note ---
Assessment/Plan Assessment/Plan (1) Abdominal pain (2) Status post left inguinal herniorrhaphy (3) Atypical chest pain (4) Pneumonia (5) Pulmonary embolism Patient to be continued on [place] and Morphine as needed. D/w Dr. Melchor and he concurred. Subjective Date patient seen: Jul 11, 2017 Allergies: Coded Allergies: No Known Allergies (Unverified , 07/07/17) Subjective Constitutional: Reports: no symptoms HEENT: Reports: no symptoms Cardiovascular: Reports: chest pain Respiratory: Reports: shortness of breath, sputum Gastrointestinal/Abdominal: Reports: abdominal pain Genitourinary: Reports: burning Neurologic/Psychiatric: Reports: depressed Endocrine: Reports: no symptoms Hematologic/Lymphatic: Reports: no symptoms Subjective Patient is in bed and shows no signs of pain or distress and has no new complaints. Objective Last 24 Hour Vital Signs Date Time Temp Pulse Resp B/P (MAP) Pulse Ox O2 Delivery O2 Flow Rate FiO2 07/11/17 08:52 97.7 07/11/17 08:15 60 113/64 07/11/17 08:14 60 113/64 07/11/17 08:00 97.7 60 16 113/64 96 Nasal Cannula 2.0 07/11/17 08:00 65 07/11/17 04:00 99.5 54 19 121/56 98 Nasal Cannula 2.0 07/11/17 04:00 57 07/11/17 00:28 70 131/64 07/11/17 00:00 99.1 64 19 135/71 97 Nasal Cannula 2.0 07/11/17 00:00 65 07/10/17 20:00 99.6 70 20 131/64 96 07/10/17 20:00 99.6 70 20 131/64 96 Nasal Cannula 2.0 07/10/17 20:00 60 07/10/17 19:00 Nasal Cannula 2.0 28 07/10/17 19:00 98 Nasal Cannula 2.0 28 07/10/17 18:20 98.9 07/10/17 16:00 97.1 90 19 135/90 98 Nasal Cannula 2.0 07/10/17 16:00 64 07/10/17 12:00 60 07/10/17 12:00 97.3 83 20 130/70 98 Nasal Cannula 2.0 Intake and Output 07/10/17 07/11/17 19:00 07:00 Intake Total 873.0 ml 320 ml Balance 873.0 ml 320 ml Intake Oral 708 ml 320 ml IV Total 165.0 ml # Voids 3 2 # Bowel Movements 1 1 Laboratory Tests 07/11/17 05:45: Prothrombin Time 10.5, Prothromb Time International Ratio 1.0 Height (Feet): 6 Height (Inches): 0.00 Weight (Pounds): 180 Objective General Appearance: no apparent distress, alert EENT: PERRL/EOMI, normal ENT inspection Neck: non-tender, normal alignment Cardiovascular: normal rate, regular rhythm Respiratory/Chest: decreased breath sounds Abdomen: tender Extremities: non-tender Edema: trace edema Neurologic: alert, oriented x 3 Skin: warm/dry BOB KENT Jul 11, 2017 11:01
--- NOTE | 2017-07-11 11:07 | General Surgery Progress Note ---
General Surgery-Progress Note Subjective Additional Comments doing well. no acute events. comfortable. Objective Last 24 Hour Vital Signs Date Time Temp Pulse Resp B/P (MAP) Pulse Ox O2 Delivery O2 Flow Rate FiO2 07/11/17 08:52 97.7 07/11/17 08:15 60 113/64 07/11/17 08:14 60 113/64 07/11/17 08:00 97.7 60 16 113/64 96 Nasal Cannula 2.0 07/11/17 08:00 65 07/11/17 04:00 99.5 54 19 121/56 98 Nasal Cannula 2.0 07/11/17 04:00 57 07/11/17 00:28 70 131/64 07/11/17 00:00 99.1 64 19 135/71 97 Nasal Cannula 2.0 07/11/17 00:00 65 07/10/17 20:00 99.6 70 20 131/64 96 07/10/17 20:00 99.6 70 20 131/64 96 Nasal Cannula 2.0 07/10/17 20:00 60 07/10/17 19:00 Nasal Cannula 2.0 28 07/10/17 19:00 98 Nasal Cannula 2.0 28 07/10/17 18:20 98.9 07/10/17 16:00 97.1 90 19 135/90 98 Nasal Cannula 2.0 07/10/17 16:00 64 07/10/17 12:00 60 07/10/17 12:00 97.3 83 20 130/70 98 Nasal Cannula 2.0 I&O Intake and Output 07/10/17 07/11/17 19:00 07:00 Intake Total 873.0 ml 320 ml Balance 873.0 ml 320 ml Intake Oral 708 ml 320 ml IV Total 165.0 ml # Voids 3 2 # Bowel Movements 1 1 Wound: clean, dry, intact Cardiovascular: RSR Respiratory: clear Abdomen: soft, flat, non-tender, present bowel sounds Extremities: no tenderness, no cyanosis Laboratory Tests Test 07/11/17 05:45 Prothrombin Time 10.5 SEC (9.30-11.50) Prothromb Time International Ratio 1.0 (0.9-1.1) Plan Problems: (1) Abdominal pain Assessment & Plan: 87M with fever, abd pain, cough, pna, recent history of left inguinal hernia repair for incarceration. currently stable. noted to be anemic and thrombocytopenic on labs. no leukocytosis. abdominal exam benign. left inguinal wound clean, dry, intact without signs of active infection. CXR with possible pneumonia. CT reviewed and small 4cm fluid collection likely seroma. no surrounding inflammation and exam very benign. very unlikely to be abscess CT chest with PE. -On Tx for PE -surgical site mehul removed for patient as it was time. -no acute surgical intervention necessary -will follow exam and with recs. thank you for this consultation. Abhay Thomson Jul 11, 2017 11:07
[2017-07-11 12:00] VITALS: BP 118/56
--- NOTE | 2017-07-11 14:17 | General Progress Note ---
Assessment/Plan Problem List: (1) Pulmonary embolism ICD Codes: I26.99 - Other pulmonary embolism without acute cor pulmonale SNOMED: 04942425 (2) Pneumonia ICD Codes: J18.9 - Pneumonia, unspecified organism SNOMED: 305447571 (3) Anemia ICD Codes: D64.9 - Anemia, unspecified SNOMED: 257738197 (4) Abdominal pain ICD Codes: R10.9 - Unspecified abdominal pain SNOMED: 33560432 Qualifiers: Qualified Codes: R10.84 - Generalized abdominal pain (5) Thrombocytopenia ICD Codes: D69.6 - Thrombocytopenia, unspecified SNOMED: 682540262 Status: progressing Assessment/Plan pulmonary embolism pna afebrile s/p recent inguinal hernia repair anticogulation her heme/onc moniter for bleeding Subjective ROS Limited/Unobtainable: Yes Allergies: Coded Allergies: No Known Allergies (Unverified , 07/07/17) Objective Last 24 Hour Vital Signs Date Time Temp Pulse Resp B/P (MAP) Pulse Ox O2 Delivery O2 Flow Rate FiO2 07/11/17 08:52 97.7 07/11/17 08:15 60 113/64 07/11/17 08:14 60 113/64 07/11/17 08:00 97.7 60 16 113/64 96 Nasal Cannula 2.0 07/11/17 08:00 65 07/11/17 04:00 99.5 54 19 121/56 98 Nasal Cannula 2.0 07/11/17 04:00 57 07/11/17 00:28 70 131/64 07/11/17 00:00 99.1 64 19 135/71 97 Nasal Cannula 2.0 07/11/17 00:00 65 07/10/17 20:00 99.6 70 20 131/64 96 07/10/17 20:00 99.6 70 20 131/64 96 Nasal Cannula 2.0 07/10/17 20:00 60 07/10/17 19:00 Nasal Cannula 2.0 28 07/10/17 19:00 98 Nasal Cannula 2.0 28 07/10/17 18:20 98.9 07/10/17 16:00 97.1 90 19 135/90 98 Nasal Cannula 2.0 07/10/17 16:00 64 Intake and Output 07/10/17 07/11/17 19:00 07:00 Intake Total 873.0 ml 347.5 ml Balance 873.0 ml 347.5 ml Intake Oral 708 ml 320 ml IV Total 165.0 ml 27.5 ml # Voids 3 2 # Bowel Movements 1 1 Laboratory Tests 07/11/17 05:45: Prothrombin Time 10.5, Prothromb Time International Ratio 1.0 Height (Feet): 6 Height (Inches): 0.00 Weight (Pounds): 180 Neck: supple Cardiovascular: normal rate Respiratory/Chest: lungs clear Abdomen: soft Mariia Costello MD Jul 11, 2017 14:17
[2017-07-11] MEDS ORDERED: Tubing IV Secondary IV ONE (15:27)
[2017-07-11 16:00] VITALS: BP 126/78
[2017-07-11] MEDS ORDERED: Warfarin Sodium 5mg ORAL SCH (17:00)
[2017-07-11 20:00] VITALS: BP 133/70
[2017-07-11] MEDS: HYDROcodone/Acetamin 10/325 tab ORAL PRN (20:13)
--- NOTE | 2017-07-11 23:05 | Progress Note ---
DATE: 07/10/2017 SUBJECTIVE: The patient is calmer today. Less agitation and screaming, however, he is still delusional and responds to internal stimuli. He still has persecutory delusions. Has poor insight and judgment. MENTAL STATUS EXAMINATION: The patient is alert and oriented times self and place. Mood is irritable and angry. Affect is constricted, congruent with mood. Thought process is concrete. Thought content, no suicidal or homicidal ideations. ASSESSMENT: Encephalopathy, psychotic, schizophrenia. PLAN: We will continue the current medication. We will continue to follow and readjust the medications. Chica Emanuel M.D. DR: DEBRA JOB#: [id number] CC:
--- NOTE | 2017-07-11 23:51 | General Progress Note ---
Assessment/Plan Status: stable Assessment/Plan #. Pulmonary embolism. --> Start treatment on Lovenox and Coumadin --> Monitor closely. #. Anemia due to underlying iron deficiency. --> Anemia workup reviewed. --> Does not need blood transfusion today. Hgb >8 --> Currently, no evidence of hemolysis. --> Creatinine is stable at this time. #. Thrombocytopenia, platelet count of 86,000, improved. --> Resolved. --> Continue to closely monitor. --> Consider human immunodeficiency and hepatitis panel if does not improve. #. Leukocytosis. --> Resolved. #. Pneumonia related to pneumonia infection contributing to leukocytosis. #. Chest pain. #. Abdominal pain. Subjective Date patient seen: Jul 11, 2017 Constitutional: Denies: no symptoms, chills, diaphoresis, fever, malaise, weakness, other HEENT: Denies: no symptoms, eye pain, blurred vision, tearing, double vision, ear pain, ear discharge, nose pain, nose congestion, throat pain, throat swelling, mouth pain, mouth swelling, other Cardiovascular: Denies: no symptoms, chest pain, edema, irregular heart rate, lightheadedness, palpitations, syncope, other Respiratory: Denies: no symptoms, cough, orthopnea, shortness of breath, SOB with excertion, SOB at rest, sputum, stridor, wheezing, other Gastrointestinal/Abdominal: Denies: no symptoms, abdomen distended, abdominal pain, black stools, tarry stools, blood in stool, constipated, diarrhea, difficulty swallowing, nausea, poor appetite, poor fluid intake, rectal bleeding , vomiting, other Genitourinary: Denies: no symptoms, burning, discharge, frequency, flank pain, hematuria, incontinence, pain, urgency, other Allergies: Coded Allergies: No Known Allergies (Unverified , 07/07/17) Subjective Remains on blood thinners. No fever or chills. Objective Last 24 Hour Vital Signs Date Time Temp Pulse Resp B/P (MAP) Pulse Ox O2 Delivery O2 Flow Rate FiO2 07/11/17 20:18 61 126/78 07/11/17 20:00 98.0 58 18 133/70 98 Nasal Cannula 2.0 07/11/17 20:00 67 07/11/17 18:11 96.4 07/11/17 16:00 97.0 84 19 126/78 97 Nasal Cannula 2.0 07/11/17 16:00 61 07/11/17 12:00 53 07/11/17 12:00 96.4 98 20 118/56 98 Nasal Cannula 2.0 07/11/17 08:15 60 113/64 07/11/17 08:14 60 113/64 07/11/17 08:00 97.7 60 16 113/64 96 Nasal Cannula 2.0 07/11/17 08:00 65 07/11/17 04:00 99.5 54 19 121/56 98 Nasal Cannula 2.0 07/11/17 04:00 57 07/11/17 00:28 70 131/64 07/11/17 00:00 99.1 64 19 135/71 97 Nasal Cannula 2.0 07/11/17 00:00 65 Intake and Output 07/10/17 07/11/17 19:00 07:00 Intake Total 873.0 ml 347.5 ml Balance 873.0 ml 347.5 ml Intake Oral 708 ml 320 ml IV Total 165.0 ml 27.5 ml # Voids 3 2 # Bowel Movements 1 1 Laboratory Tests 07/11/17 05:45: Prothrombin Time 10.5, Prothromb Time International Ratio 1.0 Height (Feet): 6 Height (Inches): 0.00 Weight (Pounds): 180 General Appearance: no apparent distress Neck: supple Respiratory/Chest: decreased breath sounds Abdomen: non tender, soft Skin: warm/dry Michele Isabel Jul 11, 2017 23:51
[2017-07-12 04:00] VITALS: BP 134/57
[2017-07-12] MEDS: Piperacillin/Tazobactam 3.375 GM in NS 110 ML IVPB SCH ×4 (04:44→21:32)
[2017-07-12 08:00] VITALS: BP 138/60
[2017-07-12] MEDS: Ascorbic Acid 500mg tab ORAL SCH ×3 (08:40→18:04)
[2017-07-12] MEDS: Morphine Sulfate 4mg/ml Inj IVP PRN ×3 (08:41→21:39)
[2017-07-12] MEDS: Aspirin EC 81mg tab ORAL SCH (08:41)
[2017-07-12] MEDS: Naloxegol Oxalate 25mg tab ORAL SCH (08:41)
[2017-07-12] MEDS: Enoxaparin 80mg Inj SUBQ SCH ×2 (08:42→21:41)
--- NOTE | 2017-07-12 08:43 | General Progress Note ---
Assessment/Plan Assessment/Plan (1) Abdominal pain (2) Status post left inguinal herniorrhaphy (3) Atypical chest pain (4) Pneumonia (5) Pulmonary embolism Patient to be continued on [place] and Morphine as needed. D/w Dr. Melchor and he concurred. Subjective Date patient seen: Jul 12, 2017 Time patient seen: 07:30 - am Allergies: Coded Allergies: No Known Allergies (Unverified , 07/07/17) Subjective Constitutional: Reports: no symptoms HEENT: Reports: no symptoms Cardiovascular: Reports: chest pain Respiratory: Reports: shortness of breath, sputum Gastrointestinal/Abdominal: Reports: abdominal pain Genitourinary: Reports: burning Neurologic/Psychiatric: Reports: depressed Endocrine: Reports: no symptoms Hematologic/Lymphatic: Reports: no symptoms Subjective Patient has been in bed and is tolerating the Pain on the [place] and Morphine. His pain is at a moderate level. 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 Objective Last 24 Hour Vital Signs Date Time Temp Pulse Resp B/P (MAP) Pulse Ox O2 Delivery O2 Flow Rate FiO2 07/12/17 08:00 98.1 63 20 138/60 95 Nasal Cannula 2.0 07/12/17 04:00 97.5 59 20 134/57 95 Nasal Cannula 2.0 07/12/17 04:00 50 07/12/17 00:00 52 07/11/17 20:18 61 126/78 07/11/17 20:00 98.0 58 18 133/70 98 Nasal Cannula 2.0 07/11/17 20:00 67 07/11/17 18:11 96.4 07/11/17 16:00 97.0 84 19 126/78 97 Nasal Cannula 2.0 07/11/17 16:00 61 07/11/17 12:00 53 07/11/17 12:00 96.4 98 20 118/56 98 Nasal Cannula 2.0 Intake and Output 07/11/17 07/12/17 19:00 07:00 Intake Total 373.5 ml 236 ml Output Total 200 ml 600 ml Balance 173.5 ml -364 ml Intake Oral 236 ml 236 ml IV Total 137.5 ml Output Urine Total 200 ml 600 ml # Voids 1 4 Laboratory Tests 07/12/17 05:00: Prothrombin Time 10.7, Prothromb Time International Ratio 1.0 Height (Feet): 6 Height (Inches): 0.00 Weight (Pounds): 180 Objective General Appearance: no apparent distress, alert EENT: PERRL/EOMI, normal ENT inspection Neck: non-tender, normal alignment Cardiovascular: normal rate, regular rhythm Respiratory/Chest: decreased breath sounds Abdomen: tender Extremities: non-tender Edema: trace edema Neurologic: alert, oriented x 3 Skin: warm/dry BOB KENT Jul 12, 2017 08:43
--- NOTE | 2017-07-12 10:57 | Infectious Diseases Prog Note ---
Assessment/Plan Assessment/Plan A; Pulmonary emboli Intraabdominal abscess/ infected seroma Bacteremia with Strep Pneumonia/ atelectasis Anemia DM type 2 P; Continue Zosyn Subjective ROS Limited/Unobtainable: No Constitutional: Reports: other - doing better Respiratory: Reports: no symptoms Cardiovascular: Reports: no symptoms Gastrointestinal/Abdominal: Reports: no symptoms Musculoskeletal: Reports: pain Allergies: Coded Allergies: No Known Allergies (Unverified , 07/07/17) Objective Vital Signs Last 24 Hour Vital Signs Date Time Temp Pulse Resp B/P (MAP) Pulse Ox O2 Delivery O2 Flow Rate FiO2 07/12/17 09:11 98.1 07/12/17 08:41 63 138/60 07/12/17 08:40 63 138/60 07/12/17 08:00 62 07/12/17 08:00 98.1 63 20 138/60 95 Nasal Cannula 2.0 07/12/17 04:00 97.5 59 20 134/57 95 Nasal Cannula 2.0 07/12/17 04:00 50 07/12/17 00:00 52 07/11/17 20:18 61 126/78 07/11/17 20:00 98.0 58 18 133/70 98 Nasal Cannula 2.0 07/11/17 20:00 67 07/11/17 16:00 97.0 84 19 126/78 97 Nasal Cannula 2.0 07/11/17 16:00 61 07/11/17 12:00 53 07/11/17 12:00 96.4 98 20 118/56 98 Nasal Cannula 2.0 Height (Feet): 6 Height (Inches): 0.00 Weight (Pounds): 180 General Appearance: no acute distress HEENT: mucous membranes moist Respiratory/Chest: lungs clear Cardiovascular: normal rate Abdomen: soft, non tender Extremities: no edema Neurologic/Psychiatric: alert, oriented x 3, responsive Laboratory Tests Test 07/12/17 05:00 Prothrombin Time 10.7 SEC (9.30-11.50) Prothromb Time International Ratio 1.0 (0.9-1.1) Current Medications Medications (Trade) Dose Ordered Sig/Tierney Route PRN Reason Start Time Stop Time Status Last Admin Dose Admin Acetaminophen/ Hydrocodone Bitart ([place] 10/325) 1 tab Q4H PRN ORAL Severe Pain (Pain Scale 7-10) 07/08/17 14:30 07/15/17 14:29 07/11/17 20:13 Amlodipine Besylate (Norvasc) 5 mg DAILY ORAL 07/08/17 09:00 08/07/17 08:59 07/12/17 08:41 Ascorbic Acid (Vitamin C) 250 mg TID ORAL 07/08/17 09:00 08/07/17 08:59 07/12/17 08:40 Aspirin (Ecotrin) 81 mg DAILY ORAL 07/08/17 09:00 08/07/17 08:59 07/12/17 08:41 Atorvastatin Calcium (Lipitor) 10 mg BEDTIME ORAL 07/08/17 21:00 08/07/17 20:59 07/11/17 20:19 Baclofen (Lioresal) 10 mg THREE TIMES A DAY PRN ORAL Muscle Spasm 07/08/17 07:45 08/07/17 07:44 Bisacodyl (Dulcolax) 5 mg DAILYPRN PRN ORAL Constipation 07/08/17 15:15 08/07/17 08:29 Carvedilol (Coreg) 3.125 mg EVERY 12 HOURS ORAL 07/08/17 09:00 08/07/17 08:59 07/12/17 08:40 Docusate Sodium (Colace) 200 mg BIDPRN PRN ORAL Constipation 07/08/17 15:15 08/07/17 08:59 Enoxaparin Sodium (Lovenox) 80 mg Q12HR SUBQ 07/08/17 21:00 08/07/17 20:59 07/12/17 08:42 Ferrous Sulfate (Feosol) 325 mg THREE TIMES A DAY ORAL 07/14/17 09:00 08/13/17 08:59 Finasteride (Proscar) 5 mg DAILY ORAL 07/08/17 09:00 08/07/17 08:59 07/12/17 08:40 Gabapentin (Neurontin) 200 mg EVERY 8 HOURS ORAL 07/08/17 14:00 08/07/17 13:59 07/12/17 05:52 Iron Sucrose 100 mg/Sodium Chloride 60 ml @ 240 mls/hr BEDTIME IV 07/09/17 21:00 07/13/17 21:14 07/11/17 20:16 Morphine Sulfate (Morphine Sulfate) 2 mg Q6H PRN IVP Severe Breakthru Pain (>7) 07/11/17 08:30 07/18/17 00:29 07/12/17 08:41 Naloxegol (Movantik) 12.5 mg DAILY ORAL 07/08/17 17:00 08/07/17 16:59 07/12/17 08:41 Nitroglycerin (Ntg) 0.4 mg NEEDED PRN SL Prn Chest Pain 07/08/17 08:00 08/07/17 07:59 Pantoprazole (Protonix) 40 mg ACBREAKFAST ORAL 07/08/17 08:30 08/07/17 08:29 07/12/17 05:51 Piperacillin Sod/ Tazobactam Sod 3.375 gm/Sodium Chloride 110 ml @ 27.5 mls/hr Q8H IVPB 07/10/17 05:00 07/17/17 04:59 07/12/17 04:44 Risperidone (RisperDAL) 2 mg BEDTIME ORAL 07/09/17 21:00 08/08/17 20:59 07/11/17 20:19 Warfarin Sodium (Coumadin per pharmacy) 1 ea DAILY PRN MISC Per rx protocol 07/09/17 11:45 08/08/17 11:44 Warfarin Sodium (Coumadin) 5 mg COUMADIN ONCE ORAL 07/12/17 17:00 07/12/17 17:01 JIN ABBASI Jul 12, 2017 10:57
--- NOTE | 2017-07-12 11:14 | Cardiac Electrophysiology PN ---
Subjective Subjective EP consult Dictated [id number] 21 beats of VT Objective Last 24 Hour Vital Signs Date Time Temp Pulse Resp B/P (MAP) Pulse Ox O2 Delivery O2 Flow Rate FiO2 07/12/17 09:11 98.1 07/12/17 08:41 63 138/60 07/12/17 08:40 63 138/60 07/12/17 08:00 62 07/12/17 08:00 98.1 63 20 138/60 95 Nasal Cannula 2.0 07/12/17 04:00 97.5 59 20 134/57 95 Nasal Cannula 2.0 07/12/17 04:00 50 07/12/17 00:00 52 07/11/17 20:18 61 126/78 07/11/17 20:00 98.0 58 18 133/70 98 Nasal Cannula 2.0 07/11/17 20:00 67 07/11/17 16:00 97.0 84 19 126/78 97 Nasal Cannula 2.0 07/11/17 16:00 61 07/11/17 12:00 53 07/11/17 12:00 96.4 98 20 118/56 98 Nasal Cannula 2.0 Intake and Output 07/11/17 07/12/17 19:00 07:00 Intake Total 373.5 ml 236 ml Output Total 200 ml 600 ml Balance 173.5 ml -364 ml Intake Oral 236 ml 236 ml IV Total 137.5 ml Output Urine Total 200 ml 600 ml # Voids 1 4 Laboratory Tests Test 07/12/17 05:00 Prothrombin Time 10.7 SEC (9.30-11.50) Prothromb Time International Ratio 1.0 (0.9-1.1) WALT SMITH Jul 12, 2017 11:14
[2017-07-12 12:00] VITALS: BP_SYST 115; BP_DIAS 5; BP_DIAS 58
--- NOTE | 2017-07-12 14:58 | Pulmonology Progress Note ---
Assessment/Plan Assessment/Plan pulmonary embolism and infarction no signs of pneumonia probable DVT recent L inguinal hernia repair continue Lovenox, coumadin await duplex scan Subjective Constitutional: Reports: fatigue, anorexia Respiratory: Reports: pleuritic pain Cardiovascular: Reports: chest pain Allergies: Coded Allergies: No Known Allergies (Unverified , 07/07/17) Objective Last 24 Hour Vital Signs Date Time Temp Pulse Resp B/P (MAP) Pulse Ox O2 Delivery O2 Flow Rate FiO2 07/12/17 12:00 52 07/12/17 12:00 97.9 51 20 115/5 96 Nasal Cannula 2.0 07/12/17 09:11 98.1 07/12/17 08:41 63 138/60 07/12/17 08:40 63 138/60 07/12/17 08:00 62 07/12/17 08:00 98.1 63 20 138/60 95 Nasal Cannula 2.0 07/12/17 04:00 97.5 59 20 134/57 95 Nasal Cannula 2.0 07/12/17 04:00 50 07/12/17 00:00 52 07/11/17 20:18 61 126/78 07/11/17 20:00 98.0 58 18 133/70 98 Nasal Cannula 2.0 07/11/17 20:00 67 07/11/17 16:00 97.0 84 19 126/78 97 Nasal Cannula 2.0 07/11/17 16:00 61 Intake and Output 07/11/17 07/12/17 19:00 07:00 Intake Total 373.5 ml 236 ml Output Total 200 ml 600 ml Balance 173.5 ml -364 ml Intake Oral 236 ml 236 ml IV Total 137.5 ml Output Urine Total 200 ml 600 ml # Voids 1 4 General Appearance: no acute distress HEENT: anicteric Respiratory/Chest: lungs clear Cardiovascular: normal rate, regular rhythm Laboratory Tests 07/12/17 05:00: Prothrombin Time 10.7, Prothromb Time International Ratio 1.0 07/12/17 12:45: Troponin I 0.017 Current Medications Medications (Trade) Dose Ordered Sig/Tierney Route PRN Reason Start Time Stop Time Status Last Admin Dose Admin Acetaminophen/ Hydrocodone Bitart ([place] 10/325) 1 tab Q4H PRN ORAL Severe Pain (Pain Scale 7-10) 07/08/17 14:30 07/15/17 14:29 07/11/17 20:13 Amlodipine Besylate (Norvasc) 5 mg DAILY ORAL 07/08/17 09:00 08/07/17 08:59 07/12/17 08:41 Ascorbic Acid (Vitamin C) 250 mg TID ORAL 07/08/17 09:00 08/07/17 08:59 07/12/17 13:59 Aspirin (Ecotrin) 81 mg DAILY ORAL 07/08/17 09:00 08/07/17 08:59 07/12/17 08:41 Atorvastatin Calcium (Lipitor) 10 mg BEDTIME ORAL 07/08/17 21:00 08/07/17 20:59 07/11/17 20:19 Baclofen (Lioresal) 10 mg THREE TIMES A DAY PRN ORAL Muscle Spasm 07/08/17 07:45 08/07/17 07:44 Bisacodyl (Dulcolax) 5 mg DAILYPRN PRN ORAL Constipation 07/08/17 15:15 08/07/17 08:29 Carvedilol (Coreg) 3.125 mg EVERY 12 HOURS ORAL 07/08/17 09:00 08/07/17 08:59 07/12/17 08:40 Docusate Sodium (Colace) 200 mg BIDPRN PRN ORAL Constipation 07/08/17 15:15 08/07/17 08:59 Enoxaparin Sodium (Lovenox) 80 mg Q12HR SUBQ 07/08/17 21:00 08/07/17 20:59 07/12/17 08:42 Ferrous Sulfate (Feosol) 325 mg THREE TIMES A DAY ORAL 07/14/17 09:00 08/13/17 08:59 Finasteride (Proscar) 5 mg DAILY ORAL 07/08/17 09:00 08/07/17 08:59 07/12/17 08:40 Gabapentin (Neurontin) 200 mg EVERY 8 HOURS ORAL 07/08/17 14:00 08/07/17 13:59 07/12/17 05:52 Iron Sucrose 100 mg/Sodium Chloride 60 ml @ 240 mls/hr BEDTIME IV 07/09/17 21:00 07/13/17 21:14 07/11/17 20:16 Morphine Sulfate (Morphine Sulfate) 2 mg Q6H PRN IVP Severe Breakthru Pain (>7) 07/11/17 08:30 07/18/17 00:29 07/12/17 08:41 Naloxegol (Movantik) 12.5 mg DAILY ORAL 07/08/17 17:00 08/07/17 16:59 07/12/17 08:41 Nitroglycerin (Ntg) 0.4 mg NEEDED PRN SL Prn Chest Pain 07/08/17 08:00 08/07/17 07:59 Pantoprazole (Protonix) 40 mg ACBREAKFAST ORAL 07/08/17 08:30 08/07/17 08:29 07/12/17 05:51 Piperacillin Sod/ Tazobactam Sod 3.375 gm/Sodium Chloride 110 ml @ 27.5 mls/hr Q8H IVPB 07/10/17 05:00 07/17/17 04:59 07/12/17 14:00 Risperidone (RisperDAL) 2 mg BEDTIME ORAL 07/09/17 21:00 08/08/17 20:59 07/11/17 20:19 Warfarin Sodium (Coumadin per pharmacy) 1 ea DAILY PRN MISC Per rx protocol 07/09/17 11:45 08/08/17 11:44 Warfarin Sodium (Coumadin) 5 mg COUMADIN ONCE ORAL 07/12/17 17:00 07/12/17 17:01 DONTE CARSON Jul 12, 2017 14:58
[2017-07-12 16:00] VITALS: BP 126/78
[2017-07-12] MEDS ORDERED: Warfarin Sodium 5mg ORAL ONE (17:00)
--- NOTE | 2017-07-12 18:38 | Cardiology Report ---
APPROVED REPORT EXAM: Two-dimensional and M-mode echocardiogram with Doppler and color Doppler. INDICATION Congestive Heart Failure M-Mode DIMENSIONS IVSd1.2 (0.7-1.1cm)Left Atrium (MM)4.6 (1.6-4.0cm) LVDd6.1 (3.5-5.6cm)Aortic Root3.4 (2.0-3.7cm) PWd1.1 (0.7-1.1cm)Aortic Cusp Exc.2.0 (1.5-2.0cm) LVDs3.9 (2.5-4.0cm) PWs1.4 cm Normal left ventricular chamber size, systolic function and wall motion. Left ventricular ejection fraction estimated to be 55-60%. No evidence of left ventricular hypertrophy. No evidence of pericardial or pleural effusion. Mild bi-atrial enlargement by 2D. Focal aortic valve sclerosis with adequate cusp excursion. Thickened mitral valve leaflets with normal excursion. Mild mitral annulus and aortic root calcification. Pulmonic valve not well visualized. Normal tricuspid valve structure. IVC is normal in size and collapsible with respiration. A color flow and spectral Doppler study was performed and revealed: No aortic regurgitation. No mitral regurgitation. Mitral diastolic function not obtainable due to arrhythmia. Trace tricuspid regurgitation. Tricuspid systolic velocities suggests peak right ventricular systolic pressure of 25mmHg Pulmonic regurgitation present.
[2017-07-12 20:00] VITALS: BP 144/62
--- NOTE | 2017-07-12 20:34 | General Progress Note ---
Assessment/Plan Problem List: (1) Pulmonary embolism ICD Codes: I26.99 - Other pulmonary embolism without acute cor pulmonale SNOMED: 13595527 (2) Pneumonia ICD Codes: J18.9 - Pneumonia, unspecified organism SNOMED: 452612394 (3) Anemia ICD Codes: D64.9 - Anemia, unspecified SNOMED: 131267015 (4) Abdominal pain ICD Codes: R10.9 - Unspecified abdominal pain SNOMED: 77271074 Qualifiers: Qualified Codes: R10.84 - Generalized abdominal pain (5) Thrombocytopenia ICD Codes: D69.6 - Thrombocytopenia, unspecified SNOMED: 169765043 Status: progressing Assessment/Plan pulmonary embolism awaiting inr to be greater than 2 so can dc him Subjective ROS Limited/Unobtainable: Yes Allergies: Coded Allergies: No Known Allergies (Unverified , 07/07/17) Objective Last 24 Hour Vital Signs Date Time Temp Pulse Resp B/P (MAP) Pulse Ox O2 Delivery O2 Flow Rate FiO2 07/12/17 16:05 97.9 07/12/17 16:00 97.0 84 19 126/78 97 Nasal Cannula 2.0 07/12/17 16:00 53 07/12/17 12:00 52 07/12/17 12:00 97.9 51 20 115/58 96 Nasal Cannula 2.0 07/12/17 08:41 63 138/60 07/12/17 08:40 63 138/60 07/12/17 08:00 62 07/12/17 08:00 98.1 63 20 138/60 95 Nasal Cannula 2.0 07/12/17 04:00 97.5 59 20 134/57 95 Nasal Cannula 2.0 07/12/17 04:00 50 07/12/17 00:00 52 Intake and Output 07/11/17 07/12/17 19:00 07:00 Intake Total 373.5 ml 291 ml Output Total 200 ml 600 ml Balance 173.5 ml -309 ml Intake Oral 236 ml 236 ml IV Total 137.5 ml 55 ml Output Urine Total 200 ml 600 ml # Voids 1 4 Laboratory Tests 07/12/17 05:00: Prothrombin Time 10.7, Prothromb Time International Ratio 1.0 07/12/17 12:45: Troponin I 0.017 07/12/17 19:00: Troponin I 0.028 Height (Feet): 6 Height (Inches): 0.00 Weight (Pounds): 180 General Appearance: alert Cardiovascular: normal rate Respiratory/Chest: lungs clear Abdomen: soft Mariia Costello MD Jul 12, 2017 20:34
[2017-07-12] MEDS: Iron Sucrose 100 MG in NS 55 ML IV SCH ×2 (21:00→21:31)
--- NOTE | 2017-07-12 22:30 | Consultation ---
DATE OF CONSULTATION: 07/12/2017 CARDIAC ELECTROPHYSIOLOGY CONSULTATION CONSULTING PHYSICIAN: Kaushik Heard M.D. REASON FOR CONSULTATION: Bradycardia as well as 21 beats of ventricular tachycardia. HISTORY OF PRESENT ILLNESS: The patient is an 87-year-old gentleman, who was brought from facility for increasing shortness of breath, fever, and right-sided pleuritic chest pain. The patient had some shortness of breath, but no hemoptysis. The patient had a recent discharge from . he underwent a left inguinal hernia repair for incarcerated hernia. The patient subsequently was diagnosed with acute pulmonary embolism and was started on anticoagulation. The patient also had 21 beats of ventricular tachycardia, self terminated. Cardiac electrophysiology consultation was requested for further evaluation and management. PAST MEDICAL HISTORY: Include: 1. Chronic chest pain due to chest trauma about two years ago that resulted in fractured sternum. 2. Hypertension. 3. Hyperlipidemia. 4. History of cardiac arrhythmia, nature of which is not clear. 5. Status post incarcerated hernia surgery as mentioned above. MEDICATIONS: As an outpatient included Norvasc, Coreg, Avodart, Zocor, omeprazole, and Neurontin. ALLERGIES: He has no known drug allergies. FAMILY HISTORY: Noncontributory. REVIEW OF SYSTEMS: Review of systems was performed and was negative other than what was mentioned in the history of present illness. PHYSICAL EXAMINATION: VITAL SIGNS: Showed blood pressure of 130/60, pulse 63, respirations 18, and temperature 98. HEAD AND NECK: Shows no JVD. LUNGS: Clear. CARDIOVASCULAR: Shows regular S1 and S2 with no gallop or murmur. ABDOMEN: Soft and nontender. EXTREMITIES: Bilateral lower extremity edema. LABORATORY AND DIAGNOSTIC DATA: EKG showed sinus rhythm with frequent PACs that was read by mistake as atrial fibrillation. Telemetry strip showed sinus rhythm, occasional PACs. The patient also had 21 beats of ventricular tachycardia at a rate of around 170 beats per minute. Laboratories show white count of 6.2, hemoglobin 8.2, hematocrit 26.2, and platelet count of 169. Sodium 139, potassium 3.9, BUN of 10, creatinine 0.8, and glucose of 59. D-dimer is 4. ASSESSMENT AND PLAN: 1. Long runs of ventricular tachycardia. The patient denies any prior myocardial infarction with coronary artery disease. We will completely rule out myocardial infarction protocol. We will get an echocardiogram to evaluate for ejection fraction and wall motion abnormalities. Initial troponin was negative. 2. Lower extremity edema and congestive heart failure. BNP of 1800. The 2D echocardiogram is pending. Will also get a lower extremity Doppler. 3. Mild pulmonary embolism. The patient is on anticoagulation as well as Coumadin. 4. Hyperlipidemia, on Lipitor. 5. Hypertension, on Coreg 3.125 mg b.i.d. and Norvasc 5 mg daily. 6. History of hernia surgery. 7. History of trauma with sternum fracture. He had an echocardiogram repeated. 8. Pneumonia, on antibiotics. Thank you very much, Dr. Costello, for allowing me to participate in the care of this patient. Please do not hesitate to contact me for any questions regarding my evaluation. Kaushik Heard M.D. DR: [place] JOB#: [id number] CC:
--- NOTE | 2017-07-12 22:56 | General Progress Note ---
Assessment/Plan Status: progressing Assessment/Plan #. Pulmonary embolism. --> Start treatment on Lovenox and Coumadin --> Monitor closely. --> INR goal is between 2.0 and 3.0, currently 1.0 #. Anemia due to underlying iron deficiency. --> Anemia workup reviewed. --> Does not need blood transfusion today. Hgb >8 --> Currently, no evidence of hemolysis. --> Creatinine is stable at this time. #. Thrombocytopenia, platelet count of 86,000, improved. --> Resolved. --> Continue to closely monitor. --> Consider human immunodeficiency and hepatitis panel if does not improve. #. Leukocytosis. --> Resolved. #. Pneumonia related to pneumonia infection contributing to leukocytosis. #. Chest pain. #. Abdominal pain. Subjective Date patient seen: Jul 12, 2017 Constitutional: Denies: no symptoms, chills, diaphoresis, fever, malaise, weakness, other HEENT: Denies: no symptoms, eye pain, blurred vision, tearing, double vision, ear pain, ear discharge, nose pain, nose congestion, throat pain, throat swelling, mouth pain, mouth swelling, other Cardiovascular: Denies: no symptoms, chest pain, edema, irregular heart rate, lightheadedness, palpitations, syncope, other Respiratory: Denies: no symptoms, cough, orthopnea, shortness of breath, SOB with excertion, SOB at rest, sputum, stridor, wheezing, other Gastrointestinal/Abdominal: Denies: no symptoms, abdomen distended, abdominal pain, black stools, tarry stools, blood in stool, constipated, diarrhea, difficulty swallowing, nausea, poor appetite, poor fluid intake, rectal bleeding , vomiting, other Genitourinary: Denies: no symptoms, burning, discharge, frequency, flank pain, hematuria, incontinence, pain, urgency, other Allergies: Coded Allergies: No Known Allergies (Unverified , 07/07/17) Subjective Remains on blood thinners for PE. On pain control. Objective Last 24 Hour Vital Signs Date Time Temp Pulse Resp B/P (MAP) Pulse Ox O2 Delivery O2 Flow Rate FiO2 07/12/17 21:32 59 144/62 07/12/17 20:00 98.2 59 20 144/62 96 Nasal Cannula 2.0 07/12/17 16:05 97.9 07/12/17 16:00 97.0 84 19 126/78 97 Nasal Cannula 2.0 07/12/17 16:00 53 07/12/17 12:00 52 07/12/17 12:00 97.9 51 20 115/58 96 Nasal Cannula 2.0 07/12/17 08:41 63 138/60 07/12/17 08:40 63 138/60 07/12/17 08:00 62 07/12/17 08:00 98.1 63 20 138/60 95 Nasal Cannula 2.0 07/12/17 04:00 97.5 59 20 134/57 95 Nasal Cannula 2.0 07/12/17 04:00 50 07/12/17 00:00 52 Intake and Output 07/11/17 07/12/17 19:00 07:00 Intake Total 373.5 ml 291 ml Output Total 200 ml 600 ml Balance 173.5 ml -309 ml Intake Oral 236 ml 236 ml IV Total 137.5 ml 55 ml Output Urine Total 200 ml 600 ml # Voids 1 4 Laboratory Tests 07/12/17 05:00: Prothrombin Time 10.7, Prothromb Time International Ratio 1.0 07/12/17 12:45: Troponin I 0.017 07/12/17 19:00: Troponin I 0.028 Height (Feet): 6 Height (Inches): 0.00 Weight (Pounds): 180 General Appearance: no apparent distress Neck: supple Cardiovascular: normal rate Respiratory/Chest: decreased breath sounds Abdomen: non tender, soft Michele Isabel Jul 12, 2017 22:56
--- NOTE | 2017-07-12 23:00 | Progress Note ---
DATE: 07/11/2017 SUBJECTIVE: The patient is still having episodes of anxiety, agitation, yelling; however, calmer and still disorganized and delusional. Poor insight and judgment into his mental condition. MENTAL STATUS EXAMINATION: The patient is alert and oriented times self and place. Mood is angry and agitated. Affect is constricted, congruent with mood. Thought process is disorganized. Thought content, positive for delusions. Insight and judgment non-existent. ASSESSMENT: 1. Schizophrenia. 2. Agitation. PLAN: 1. We will continue risperidone 2 mg at bedtime. 2. We will continue follow and readjust the medications. Chica Emanuel M.D. DR: JULIO C JOB#: [id number] CC:
--- NOTE | 2017-07-12 23:15 | Progress Note ---
DATE: 07/12/2017 SUBJECTIVE: The patient is angry, however, not yelling or screaming. Sales Operations Director was in the room. The patient is still paranoid and gets agitated easily. MENTAL STATUS EXAMINATION: The patient is alert and oriented times self and place. Mood is angry. Affect is flat, congruent with mood and appropriate. Thought process is concrete. Thought content, no suicidal or homicidal ideation. Positive for delusions. Insight and judgment non-existent. ASSESSMENT: Schizophrenia. PLAN: 1. We will continue the risperidone. 2. We may consider Depakote. 3. We will continue follow and readjust the medications. Chica Emanuel M.D. DR: JULIO C JOB#: [id number] CC:
[2017-07-13 04:00] VITALS: BP 142/77
[2017-07-13 04:11] LABS: HEMATOCRIT 25.9 % (42.0-52.0); HEMOGLOBIN 8.3 G/DL (14.2-18.0); MEAN CORPUSCULAR VOLUME 76 FL (80-99); PLATELET COUNT 247 K/UL (150-450); RED CELL DISTRIBUTION WIDTH 15.9 % (11.6-14.8)
[2017-07-13 04:25] LABS: INR 1.1 (0.9-1.1)
[2017-07-13 04:39] LABS: ANION GAP 5 mmol/L (5-15); BLOOD UREA NITROGEN 6 mg/dL (7-18); CARBON DIOXIDE 27 MMOL/L (21-32); CHLORIDE 107 MMOL/L (98-107); CHOLESTEROL 85 MG/DL (< 200); CREATININE 0.7 MG/DL (0.55-1.30); HDL CHOLESTEROL 34 MG/DL (40-60); POTASSIUM 3.7 MMOL/L (3.5-5.1); SODIUM 138 MMOL/L (136-145); TRIGLYCERIDES 38 MG/DL (30-150)
[2017-07-13] MEDS: Piperacillin/Tazobactam 3.375 GM in NS 110 ML IVPB SCH (05:00)
[2017-07-13 08:00] VITALS: BP 150/78
--- NOTE | 2017-07-13 08:48 | General Progress Note ---
Assessment/Plan Assessment/Plan (1) Abdominal pain (2) Status post left inguinal herniorrhaphy (3) Atypical chest pain (4) Pneumonia (5) Pulmonary embolism Patient to be continued on [place] and Morphine as needed. D/w Dr. Melchor and he concurred. Subjective Date patient seen: Jul 13, 2017 Time patient seen: 07:00 - am Allergies: Coded Allergies: No Known Allergies (Unverified , 07/07/17) Subjective Constitutional: Reports: no symptoms HEENT: Reports: no symptoms Cardiovascular: Reports: chest pain Respiratory: Reports: shortness of breath, sputum Gastrointestinal/Abdominal: Reports: abdominal pain Genitourinary: Reports: burning Neurologic/Psychiatric: Reports: depressed Endocrine: Reports: no symptoms Hematologic/Lymphatic: Reports: no symptoms Subjective Patient is comfortable and tolerating the pain on the [place] and Morphine. Objective Last 24 Hour Vital Signs Date Time Temp Pulse Resp B/P (MAP) Pulse Ox O2 Delivery O2 Flow Rate FiO2 07/13/17 04:00 60 07/13/17 04:00 97.0 65 142/77 95 07/13/17 00:00 59 07/12/17 21:32 59 144/62 07/12/17 20:00 56 07/12/17 20:00 98.2 59 20 144/62 96 Nasal Cannula 2.0 07/12/17 16:05 97.9 07/12/17 16:00 97.0 84 19 126/78 97 Nasal Cannula 2.0 07/12/17 16:00 53 07/12/17 12:00 52 07/12/17 12:00 97.9 51 20 115/58 96 Nasal Cannula 2.0 Intake and Output 07/12/17 07/13/17 19:00 07:00 Intake Total 497.5 ml 120 ml Output Total 450 ml 250 ml Balance 47.5 ml -130 ml Intake Oral 360 ml 120 ml IV Total 137.5 ml Output Urine Total 450 ml 250 ml # Voids 1 1 # Bowel Movements 1 Laboratory Tests 07/12/17 12:45: Troponin I 0.017 07/12/17 19:00: Troponin I 0.028 07/13/17 03:35: Troponin I 0.016, White Blood Count 4.0L, Red Blood Count 3.40L, Hemoglobin 8.3L , Hematocrit 25.9L, Mean Corpuscular Volume 76L, Mean Corpuscular Hemoglobin 24.5L, Mean Corpuscular Hemoglobin Concent 32.1, Red Cell Distribution Width 15.9H, Platelet Count 247, Mean Platelet Volume 7.4, Neutrophils (%) (Auto) , Lymphocytes (%) (Auto) , Monocytes (%) (Auto) , Eosinophils (%) (Auto) , Basophils (%) (Auto) , Prothrombin Time 11.2, Prothromb Time International Ratio 1.1, Sodium Level 138, Potassium Level 3.7, Chloride Level 107, Carbon Dioxide Level 27, Anion Gap 5, Blood Urea Nitrogen 6L, Creatinine 0.7, Estimat Glomerular Filtration Rate , Glucose Level 84, Calcium Level 8.0L, Pro-B-Type Natriuretic Peptide 1078H, Triglycerides Level 38, Cholesterol Level 85, LDL Cholesterol 50, HDL Cholesterol 34L, Cholesterol/HDL Ratio 2.5L, Thyroid Stimulating Hormone (TSH) 2.050, Free Thyroxine 1.38 Height (Feet): 6 Height (Inches): 0.00 Weight (Pounds): 180 Objective General Appearance: no apparent distress, alert EENT: PERRL/EOMI, normal ENT inspection Neck: non-tender, normal alignment Cardiovascular: normal rate, regular rhythm Respiratory/Chest: decreased breath sounds Abdomen: tender Extremities: non-tender Edema: trace edema Neurologic: alert, oriented x 3 Skin: warm/dry BOB KENT N. P.Gonzalo Jul 13, 2017 08:48
[2017-07-13] MEDS: Aspirin EC 81mg tab ORAL SCH (09:14)
[2017-07-13] MEDS: Morphine Sulfate 4mg/ml Inj IVP PRN ×2 (09:18→17:56)
[2017-07-13] MEDS: Enoxaparin 80mg Inj SUBQ SCH ×2 (09:19→21:06)
[2017-07-13] MEDS: Naloxegol Oxalate 25mg tab ORAL SCH (09:28)
[2017-07-13] MEDS: Ascorbic Acid 500mg tab ORAL SCH ×3 (09:31→17:50)
[2017-07-13] MEDS ORDERED: HYDROcodone/Acetamin 10/325 tab ORAL PRN (10:30)
--- NOTE | 2017-07-13 10:38 | Cardiac Electrophysiology PN ---
Assessment/Plan Assessment/Plan 1. Long runs of 21 beats of ventricular tachycardia. The patient denies any prior myocardial infarction with coronary artery disease. Ruled out for myocardial infarction. EF 55% Stress test after INR therapeutic. Could be due to acute PE. 2. Lower extremity edema and congestive heart failure. BNP of 1800. The 2D echocardiogram EF55%. lower extremity Doppler POSITIVE FOR dvt. 3. Mild pulmonary embolism. The patient is on Lovenox and Coumadin. 4. Hyperlipidemia, on Lipitor. 5. Hypertension, on Coreg 3.125 mg b.i.d. and Norvasc 5 mg daily. 6. History of hernia surgery. 7. History of trauma with sternum fracture. 8. Pneumonia, on antibiotics. Subjective Subjective Still on Lovenox and Coumadin. LE doppler Right leg DVT .Had 8 beats of VT again. Objective Last 24 Hour Vital Signs Date Time Temp Pulse Resp B/P (MAP) Pulse Ox O2 Delivery O2 Flow Rate FiO2 07/13/17 09:15 77 150/78 07/13/17 09:14 77 150/78 07/13/17 04:00 60 07/13/17 04:00 97.0 65 142/77 95 07/13/17 00:00 59 07/12/17 21:32 59 144/62 07/12/17 20:00 56 07/12/17 20:00 98.2 59 20 144/62 96 Nasal Cannula 2.0 07/12/17 16:05 97.9 07/12/17 16:00 97.0 84 19 126/78 97 Nasal Cannula 2.0 07/12/17 16:00 53 07/12/17 12:00 52 07/12/17 12:00 97.9 51 20 115/58 96 Nasal Cannula 2.0 Intake and Output 07/12/17 07/13/17 19:00 07:00 Intake Total 497.5 ml 120 ml Output Total 450 ml 250 ml Balance 47.5 ml -130 ml Intake Oral 360 ml 120 ml IV Total 137.5 ml Output Urine Total 450 ml 250 ml # Voids 1 1 # Bowel Movements 1 Laboratory Tests Test 07/12/17 12:45 07/12/17 19:00 07/13/17 03:35 Troponin I 0.017 ng/mL (0.000-0.056) 0.028 ng/mL (0.000-0.056) 0.016 ng/mL (0.000-0.056) White Blood Count 4.0 K/UL (4.8-10.8) L Red Blood Count 3.40 M/UL (4.70-6.10) L Hemoglobin 8.3 G/DL (14.2-18.0) L Hematocrit 25.9 % (42.0-52.0) L Mean Corpuscular Volume 76 FL (80-99) L Mean Corpuscular Hemoglobin 24.5 PG (27.0-31.0) L Mean Corpuscular Hemoglobin Concent 32.1 G/DL (32.0-36.0) Red Cell Distribution Width 15.9 % (11.6-14.8) H Platelet Count 247 K/UL (150-450) Mean Platelet Volume 7.4 FL (6.5-10.1) Neutrophils (%) (Auto) % (45.0-75.0) Lymphocytes (%) (Auto) % (20.0-45.0) Monocytes (%) (Auto) % (1.0-10.0) Eosinophils (%) (Auto) % (0.0-3.0) Basophils (%) (Auto) % (0.0-2.0) Prothrombin Time 11.2 SEC (9.30-11.50) Prothromb Time International Ratio 1.1 (0.9-1.1) Sodium Level 138 MMOL/L (136-145) Potassium Level 3.7 MMOL/L (3.5-5.1) Chloride Level 107 MMOL/L (98-107) Carbon Dioxide Level 27 MMOL/L (21-32) Anion Gap 5 mmol/L (5-15) Blood Urea Nitrogen 6 mg/dL (7-18) L Creatinine 0.7 MG/DL (0.55-1.30) Estimat Glomerular Filtration Rate mL/min (>60) Glucose Level 84 MG/DL (74-106) Calcium Level 8.0 MG/DL (8.5-10.1) L Pro-B-Type Natriuretic Peptide 1078 pg/mL (0-125) H Triglycerides Level 38 MG/DL (30-150) Cholesterol Level 85 MG/DL (< 200) LDL Cholesterol 50 mg/dL (<100) HDL Cholesterol 34 MG/DL (40-60) L Cholesterol/HDL Ratio 2.5 (3.3-4.4) L Thyroid Stimulating Hormone (TSH) 2.050 uiU/mL (0.358-3.740) Free Thyroxine 1.38 NG/DL (0.76-1.46) Objective HEAD AND NECK: Shows no JVD. LUNGS: Clear. CARDIOVASCULAR: Regular S1 and S2 with no gallop or murmur. ABDOMEN: Soft and nontender. EXTREMITIES: Bilateral lower extremity edema. WALT SMITH Jul 13, 2017 10:38
--- NOTE | 2017-07-13 11:07 | Pulmonology Progress Note ---
Assessment/Plan Assessment/Plan pulmonary embolism and infarction no signs of pneumonia probable DVT recent L inguinal hernia repair continue Lovenox coumadin per pharmacy, INR still low await duplex scan Subjective Respiratory: Denies: shortness of breath Allergies: Coded Allergies: No Known Allergies (Unverified , 07/07/17) Objective Last 24 Hour Vital Signs Date Time Temp Pulse Resp B/P (MAP) Pulse Ox O2 Delivery O2 Flow Rate FiO2 07/13/17 09:15 77 150/78 07/13/17 09:14 77 150/78 07/13/17 04:00 60 07/13/17 04:00 97.0 65 142/77 95 07/13/17 00:00 59 07/12/17 21:32 59 144/62 07/12/17 20:00 56 07/12/17 20:00 98.2 59 20 144/62 96 Nasal Cannula 2.0 07/12/17 16:05 97.9 07/12/17 16:00 97.0 84 19 126/78 97 Nasal Cannula 2.0 07/12/17 16:00 53 07/12/17 12:00 52 07/12/17 12:00 97.9 51 20 115/58 96 Nasal Cannula 2.0 Intake and Output 07/12/17 07/13/17 19:00 07:00 Intake Total 497.5 ml 120 ml Output Total 450 ml 250 ml Balance 47.5 ml -130 ml Intake Oral 360 ml 120 ml IV Total 137.5 ml Output Urine Total 450 ml 250 ml # Voids 1 1 # Bowel Movements 1 General Appearance: no acute distress Respiratory/Chest: lungs clear Cardiovascular: normal rate Laboratory Tests 07/12/17 12:45: Troponin I 0.017 07/12/17 19:00: Troponin I 0.028 07/13/17 03:35: Troponin I 0.016, White Blood Count 4.0L, Red Blood Count 3.40L, Hemoglobin 8.3L , Hematocrit 25.9L, Mean Corpuscular Volume 76L, Mean Corpuscular Hemoglobin 24.5L, Mean Corpuscular Hemoglobin Concent 32.1, Red Cell Distribution Width 15.9H, Platelet Count 247, Mean Platelet Volume 7.4, Neutrophils (%) (Auto) , Lymphocytes (%) (Auto) , Monocytes (%) (Auto) , Eosinophils (%) (Auto) , Basophils (%) (Auto) , Prothrombin Time 11.2, Prothromb Time International Ratio 1.1, Sodium Level 138, Potassium Level 3.7, Chloride Level 107, Carbon Dioxide Level 27, Anion Gap 5, Blood Urea Nitrogen 6L, Creatinine 0.7, Estimat Glomerular Filtration Rate , Glucose Level 84, Calcium Level 8.0L, Pro-B-Type Natriuretic Peptide 1078H, Triglycerides Level 38, Cholesterol Level 85, LDL Cholesterol 50, HDL Cholesterol 34L, Cholesterol/HDL Ratio 2.5L, Thyroid Stimulating Hormone (TSH) 2.050, Free Thyroxine 1.38 Current Medications Medications (Trade) Dose Ordered Sig/Tierney Route PRN Reason Start Time Stop Time Status Last Admin Dose Admin Acetaminophen/ Hydrocodone Bitart ([place] 10/325) 1 tab Q4H PRN ORAL Severe Pain (Pain Scale 7-10) 07/13/17 10:30 07/20/17 10:29 Amlodipine Besylate (Norvasc) 5 mg DAILY ORAL 07/08/17 09:00 08/07/17 08:59 07/13/17 09:14 Ascorbic Acid (Vitamin C) 250 mg TID ORAL 07/08/17 09:00 08/07/17 08:59 07/13/17 09:31 Aspirin (Ecotrin) 81 mg DAILY ORAL 07/08/17 09:00 08/07/17 08:59 07/13/17 09:14 Atorvastatin Calcium (Lipitor) 10 mg BEDTIME ORAL 07/08/17 21:00 08/07/17 20:59 07/12/17 21:31 Baclofen (Lioresal) 10 mg THREE TIMES A DAY PRN ORAL Muscle Spasm 07/08/17 07:45 08/07/17 07:44 Bisacodyl (Dulcolax) 5 mg DAILYPRN PRN ORAL Constipation 07/08/17 15:15 08/07/17 08:29 Carvedilol (Coreg) 3.125 mg EVERY 12 HOURS ORAL 07/08/17 09:00 08/07/17 08:59 07/13/17 09:15 Docusate Sodium (Colace) 200 mg BIDPRN PRN ORAL Constipation 07/08/17 15:15 08/07/17 08:59 Enoxaparin Sodium (Lovenox) 80 mg Q12HR SUBQ 07/08/17 21:00 08/07/17 20:59 07/13/17 09:19 Ferrous Sulfate (Feosol) 325 mg THREE TIMES A DAY ORAL 07/14/17 09:00 08/13/17 08:59 Finasteride (Proscar) 5 mg DAILY ORAL 07/08/17 09:00 08/07/17 08:59 07/13/17 09:13 Gabapentin (Neurontin) 200 mg EVERY 8 HOURS ORAL 07/08/17 14:00 08/07/17 13:59 07/13/17 05:22 Iron Sucrose 100 mg/Sodium Chloride 60 ml @ 240 mls/hr BEDTIME IV 07/09/17 21:00 07/13/17 21:14 07/11/17 20:16 Morphine Sulfate (Morphine Sulfate) 2 mg Q6H PRN IVP Severe Breakthru Pain (>7) 07/11/17 08:30 07/18/17 00:29 07/13/17 09:18 Naloxegol (Movantik) 12.5 mg DAILY ORAL 07/08/17 17:00 08/07/17 16:59 07/13/17 09:28 Nitroglycerin (Ntg) 0.4 mg NEEDED PRN SL Prn Chest Pain 07/08/17 08:00 08/07/17 07:59 Pantoprazole (Protonix) 40 mg ACBREAKFAST ORAL 07/08/17 08:30 08/07/17 08:29 07/13/17 05:22 Piperacillin Sod/ Tazobactam Sod 3.375 gm/Sodium Chloride 110 ml @ 27.5 mls/hr Q8H IVPB 07/10/17 05:00 07/17/17 04:59 07/13/17 05:00 Risperidone (RisperDAL) 2 mg BEDTIME ORAL 07/09/17 21:00 08/08/17 20:59 07/12/17 21:31 Warfarin Sodium (Coumadin per pharmacy) 1 ea DAILY PRN MISC Per rx protocol 07/09/17 11:45 08/08/17 11:44 Warfarin Sodium (Coumadin) 7.5 mg ONCE ONCE ORAL 07/13/17 17:00 07/13/17 17:01 DONTE CARSON 6, 2018 11:07
--- NOTE | 2017-07-13 11:36 | Diagnostic Imaging Report ---
APPROVED REPORT CPT Code: 03061 Present Symptoms Comments: Pain RIGHT LEG: Venous imaging reveals acute occlusive thrombus in a genicular vein. The tip of the thrombus was seen in the proximal calf. Imaging also reveals patency of the common femoral, popliteal and calf veins (anterior tibial, posterior tibial and peroneal veins). The greater saphenous vein is also within normal limits. Doppler indicates normal spontaneous flow within these segments. LEFT LEG: Venous imaging reveals a patent deep venous system. There is no evidence of thrombus within the femoral, popliteal or tibial segments. Doppler indicates normal spontaneous flow within these segments. The greater saphenous vein is thrombosed. RN notified of abnormal results at 1600 hours.
[2017-07-13 12:00] VITALS: BP 123/52
--- NOTE | 2017-07-13 12:31 | Infectious Diseases Prog Note ---
Assessment/Plan Assessment/Plan A; Pulmonary emboli Intraabdominal abscess/ infected seroma Bacteremia with Strep Pneumonia/ atelectasis Anemia DM type 2 P; Change Zosyn to Ceftriaxone & Flagyl Case was D/W Surgeon, he believes seroma is not infected Subjective ROS Limited/Unobtainable: No Constitutional: Reports: no symptoms Respiratory: Reports: no symptoms Cardiovascular: Reports: no symptoms Gastrointestinal/Abdominal: Reports: no symptoms Allergies: Coded Allergies: No Known Allergies (Unverified , 07/07/17) Objective Vital Signs Last 24 Hour Vital Signs Date Time Temp Pulse Resp B/P (MAP) Pulse Ox O2 Delivery O2 Flow Rate FiO2 07/13/17 12:00 98.2 62 20 123/52 95 Nasal Cannula 2.0 07/13/17 09:15 77 150/78 07/13/17 09:14 77 150/78 07/13/17 08:00 70 07/13/17 08:00 97.9 77 20 150/78 96 Nasal Cannula 2.0 07/13/17 04:00 60 07/13/17 04:00 97.0 65 142/77 95 07/13/17 00:00 59 07/12/17 21:32 59 144/62 07/12/17 20:00 56 07/12/17 20:00 98.2 59 20 144/62 96 Nasal Cannula 2.0 07/12/17 16:05 97.9 07/12/17 16:00 97.0 84 19 126/78 97 Nasal Cannula 2.0 07/12/17 16:00 53 Height (Feet): 6 Height (Inches): 0.00 Weight (Pounds): 180 General Appearance: no acute distress HEENT: mucous membranes moist Respiratory/Chest: lungs clear Cardiovascular: normal rate Abdomen: soft, non tender Extremities: other - edema of legs Neurologic/Psychiatric: alert, oriented x 3, responsive Laboratory Tests Test 07/12/17 12:45 07/12/17 19:00 07/13/17 03:35 Troponin I 0.017 ng/mL (0.000-0.056) 0.028 ng/mL (0.000-0.056) 0.016 ng/mL (0.000-0.056) White Blood Count 4.0 K/UL (4.8-10.8) L Red Blood Count 3.40 M/UL (4.70-6.10) L Hemoglobin 8.3 G/DL (14.2-18.0) L Hematocrit 25.9 % (42.0-52.0) L Mean Corpuscular Volume 76 FL (80-99) L Mean Corpuscular Hemoglobin 24.5 PG (27.0-31.0) L Mean Corpuscular Hemoglobin Concent 32.1 G/DL (32.0-36.0) Red Cell Distribution Width 15.9 % (11.6-14.8) H Platelet Count 247 K/UL (150-450) Mean Platelet Volume 7.4 FL (6.5-10.1) Neutrophils (%) (Auto) % (45.0-75.0) Lymphocytes (%) (Auto) % (20.0-45.0) Monocytes (%) (Auto) % (1.0-10.0) Eosinophils (%) (Auto) % (0.0-3.0) Basophils (%) (Auto) % (0.0-2.0) Prothrombin Time 11.2 SEC (9.30-11.50) Prothromb Time International Ratio 1.1 (0.9-1.1) Sodium Level 138 MMOL/L (136-145) Potassium Level 3.7 MMOL/L (3.5-5.1) Chloride Level 107 MMOL/L (98-107) Carbon Dioxide Level 27 MMOL/L (21-32) Anion Gap 5 mmol/L (5-15) Blood Urea Nitrogen 6 mg/dL (7-18) L Creatinine 0.7 MG/DL (0.55-1.30) Estimat Glomerular Filtration Rate mL/min (>60) Glucose Level 84 MG/DL (74-106) Calcium Level 8.0 MG/DL (8.5-10.1) L Pro-B-Type Natriuretic Peptide 1078 pg/mL (0-125) H Triglycerides Level 38 MG/DL (30-150) Cholesterol Level 85 MG/DL (< 200) LDL Cholesterol 50 mg/dL (<100) HDL Cholesterol 34 MG/DL (40-60) L Cholesterol/HDL Ratio 2.5 (3.3-4.4) L Thyroid Stimulating Hormone (TSH) 2.050 uiU/mL (0.358-3.740) Free Thyroxine 1.38 NG/DL (0.76-1.46) Current Medications Medications (Trade) Dose Ordered Sig/Tierney Route PRN Reason Start Time Stop Time Status Last Admin Dose Admin Acetaminophen/ Hydrocodone Bitart ([place] 10/325) 1 tab Q4H PRN ORAL Severe Pain (Pain Scale 7-10) 07/13/17 10:30 07/20/17 10:29 Amlodipine Besylate (Norvasc) 5 mg DAILY ORAL 07/08/17 09:00 08/07/17 08:59 07/13/17 09:14 Ascorbic Acid (Vitamin C) 250 mg TID ORAL 07/08/17 09:00 08/07/17 08:59 07/13/17 09:31 Aspirin (Ecotrin) 81 mg DAILY ORAL 07/08/17 09:00 08/07/17 08:59 07/13/17 09:14 Atorvastatin Calcium (Lipitor) 10 mg BEDTIME ORAL 07/08/17 21:00 08/07/17 20:59 07/12/17 21:31 Baclofen (Lioresal) 10 mg THREE TIMES A DAY PRN ORAL Muscle Spasm 07/08/17 07:45 08/07/17 07:44 Bisacodyl (Dulcolax) 5 mg DAILYPRN PRN ORAL Constipation 07/08/17 15:15 08/07/17 08:29 Carvedilol (Coreg) 3.125 mg EVERY 12 HOURS ORAL 07/08/17 09:00 08/07/17 08:59 07/13/17 09:15 Docusate Sodium (Colace) 200 mg BIDPRN PRN ORAL Constipation 07/08/17 15:15 08/07/17 08:59 Enoxaparin Sodium (Lovenox) 80 mg Q12HR SUBQ 07/08/17 21:00 08/07/17 20:59 07/13/17 09:19 Ferrous Sulfate (Feosol) 325 mg THREE TIMES A DAY ORAL 07/14/17 09:00 08/13/17 08:59 Finasteride (Proscar) 5 mg DAILY ORAL 07/08/17 09:00 08/07/17 08:59 07/13/17 09:13 Gabapentin (Neurontin) 200 mg EVERY 8 HOURS ORAL 07/08/17 14:00 08/07/17 13:59 07/13/17 05:22 Iron Sucrose 100 mg/Sodium Chloride 60 ml @ 240 mls/hr BEDTIME IV 07/09/17 21:00 07/13/17 21:14 07/11/17 20:16 Morphine Sulfate (Morphine Sulfate) 2 mg Q6H PRN IVP Severe Breakthru Pain (>7) 07/11/17 08:30 07/18/17 00:29 07/13/17 09:18 Naloxegol (Movantik) 12.5 mg DAILY ORAL 07/08/17 17:00 08/07/17 16:59 07/13/17 09:28 Nitroglycerin (Ntg) 0.4 mg NEEDED PRN SL Prn Chest Pain 07/08/17 08:00 08/07/17 07:59 Pantoprazole (Protonix) 40 mg ACBREAKFAST ORAL 07/08/17 08:30 08/07/17 08:29 07/13/17 05:22 Piperacillin Sod/ Tazobactam Sod 3.375 gm/Sodium Chloride 110 ml @ 27.5 mls/hr Q8H IVPB 07/10/17 05:00 07/17/17 04:59 07/13/17 05:00 Risperidone (RisperDAL) 2 mg BEDTIME ORAL 07/09/17 21:00 08/08/17 20:59 07/12/17 21:31 Warfarin Sodium (Coumadin per pharmacy) 1 ea DAILY PRN MISC Per rx protocol 07/09/17 11:45 08/08/17 11:44 Warfarin Sodium (Coumadin) 7.5 mg ONCE ONCE ORAL 07/13/17 17:00 07/13/17 17:01 JIN ABBASI Jul 13, 2017 12:31
[2017-07-13] MEDS: cefTRIAXone 2 GM in NS 55 ML IVPB SCH (14:13)
--- NOTE | 2017-07-13 14:17 | General Progress Note ---
Assessment/Plan Problem List: (1) Pulmonary embolism ICD Codes: I26.99 - Other pulmonary embolism without acute cor pulmonale SNOMED: 77811413 (2) Pneumonia ICD Codes: J18.9 - Pneumonia, unspecified organism SNOMED: 554909586 (3) Anemia ICD Codes: D64.9 - Anemia, unspecified SNOMED: 784000388 (4) Abdominal pain ICD Codes: R10.9 - Unspecified abdominal pain SNOMED: 59783049 Qualifiers: Qualified Codes: R10.84 - Generalized abdominal pain (5) Thrombocytopenia ICD Codes: D69.6 - Thrombocytopenia, unspecified SNOMED: 899910379 Status: progressing Assessment/Plan pulmonary embolism awaiting inr to be greater than 2 so can dc him inr is still subtherpeutic no bleeding reviewed chart and labs Subjective ROS Limited/Unobtainable: Yes Allergies: Coded Allergies: No Known Allergies (Unverified , 07/07/17) Subjective leg pain Objective Last 24 Hour Vital Signs Date Time Temp Pulse Resp B/P (MAP) Pulse Ox O2 Delivery O2 Flow Rate FiO2 07/13/17 12:00 59 07/13/17 12:00 98.2 62 20 123/52 95 Nasal Cannula 2.0 07/13/17 09:15 77 150/78 07/13/17 09:14 77 150/78 07/13/17 08:00 70 07/13/17 08:00 97.9 77 20 150/78 96 Nasal Cannula 2.0 07/13/17 07:45 98 Nasal Cannula 2.0 28 07/13/17 07:45 Nasal Cannula 2.0 28 07/13/17 04:00 60 07/13/17 04:00 97.0 65 142/77 95 07/13/17 00:00 59 07/12/17 21:32 59 144/62 07/12/17 20:00 56 07/12/17 20:00 98.2 59 20 144/62 96 Nasal Cannula 2.0 07/12/17 16:05 97.9 07/12/17 16:00 97.0 84 19 126/78 97 Nasal Cannula 2.0 07/12/17 16:00 53 Intake and Output 07/12/17 07/13/17 19:00 07:00 Intake Total 497.5 ml 120 ml Output Total 450 ml 250 ml Balance 47.5 ml -130 ml Intake Oral 360 ml 120 ml IV Total 137.5 ml Output Urine Total 450 ml 250 ml # Voids 1 1 # Bowel Movements 1 Laboratory Tests 07/12/17 19:00: Troponin I 0.028 07/13/17 03:35: Troponin I 0.016, White Blood Count 4.0L, Red Blood Count 3.40L, Hemoglobin 8.3L , Hematocrit 25.9L, Mean Corpuscular Volume 76L, Mean Corpuscular Hemoglobin 24.5L, Mean Corpuscular Hemoglobin Concent 32.1, Red Cell Distribution Width 15.9H, Platelet Count 247, Mean Platelet Volume 7.4, Neutrophils (%) (Auto) , Lymphocytes (%) (Auto) , Monocytes (%) (Auto) , Eosinophils (%) (Auto) , Basophils (%) (Auto) , Prothrombin Time 11.2, Prothromb Time International Ratio 1.1, Sodium Level 138, Potassium Level 3.7, Chloride Level 107, Carbon Dioxide Level 27, Anion Gap 5, Blood Urea Nitrogen 6L, Creatinine 0.7, Estimat Glomerular Filtration Rate , Glucose Level 84, Calcium Level 8.0L, Pro-B-Type Natriuretic Peptide 1078H, Triglycerides Level 38, Cholesterol Level 85, LDL Cholesterol 50, HDL Cholesterol 34L, Cholesterol/HDL Ratio 2.5L, Thyroid Stimulating Hormone (TSH) 2.050, Free Thyroxine 1.38 Height (Feet): 6 Height (Inches): 0.00 Weight (Pounds): 180 Neck: supple Cardiovascular: normal rate Respiratory/Chest: lungs clear Mariia Costello MD Jul 13, 2017 14:17
[2017-07-13 16:00] VITALS: BP 160/68
[2017-07-13] MEDS ORDERED: Warfarin Sodium 7.5mg ORAL ONE (17:00)
[2017-07-13 20:09] VITALS: BP 145/78
[2017-07-13] MEDS: Iron Sucrose 100 MG in NS 55 ML IV SCH (21:03)
--- NOTE | 2017-07-13 23:30 | General Progress Note ---
Assessment/Plan Status: unchanged Assessment/Plan #. Pulmonary embolism. --> Start treatment on Lovenox and Coumadin --> Monitor closely. --> Pt c/o pain, on pain control. --> INR goal is between 2.0 and 3.0, currently 1.0 --> S/P venous duplex revealing acute occlusive thrombosis in genicular vein of right leg #. Anemia due to underlying iron deficiency. --> Anemia workup reviewed. --> Does not need blood transfusion today. Hgb >8 --> Currently, no evidence of hemolysis. --> Creatinine is stable at this time. #. Thrombocytopenia, platelet count of 86,000, improved. --> Resolved. --> Continue to closely monitor. --> Consider human immunodeficiency and hepatitis panel if does not improve. #. Leukocytosis. --> Resolved. #. Pneumonia related to pneumonia infection contributing to leukocytosis. #. Chest pain. #. Abdominal pain. Subjective Date patient seen: Jul 13, 2017 Constitutional: Denies: no symptoms, chills, diaphoresis, fever, malaise, weakness, other HEENT: Denies: no symptoms, eye pain, blurred vision, tearing, double vision, ear pain, ear discharge, nose pain, nose congestion, throat pain, throat swelling, mouth pain, mouth swelling, other Cardiovascular: Denies: no symptoms, chest pain, edema, irregular heart rate, lightheadedness, palpitations, syncope, other Respiratory: Denies: no symptoms, cough, orthopnea, shortness of breath, SOB with excertion, SOB at rest, sputum, stridor, wheezing, other Gastrointestinal/Abdominal: Denies: no symptoms, abdomen distended, abdominal pain, black stools, tarry stools, blood in stool, constipated, diarrhea, difficulty swallowing, nausea, poor appetite, poor fluid intake, rectal bleeding , vomiting, other Genitourinary: Denies: no symptoms, burning, discharge, frequency, flank pain, hematuria, incontinence, pain, urgency, other Hematologic/Lymphatic: Reports: anemia Allergies: Coded Allergies: No Known Allergies (Unverified , 07/07/17) Subjective Agitated. On pain management. S/P venous duplex Objective Last 24 Hour Vital Signs Date Time Temp Pulse Resp B/P (MAP) Pulse Ox O2 Delivery O2 Flow Rate FiO2 07/13/17 21:10 96 Nasal Cannula 2.0 28 07/13/17 21:10 Nasal Cannula 2.0 28 07/13/17 21:02 57 145/78 07/13/17 20:09 98.6 21 145/78 95 Nasal Cannula 2.0 07/13/17 20:00 57 07/13/17 16:00 97.9 93 20 160/68 95 Nasal Cannula 2.0 07/13/17 16:00 57 07/13/17 12:00 59 07/13/17 12:00 98.2 62 20 123/52 95 Nasal Cannula 2.0 07/13/17 09:15 77 150/78 07/13/17 09:14 77 150/78 07/13/17 08:00 70 07/13/17 08:00 97.9 77 20 150/78 96 Nasal Cannula 2.0 07/13/17 07:45 98 Nasal Cannula 2.0 28 07/13/17 07:45 Nasal Cannula 2.0 28 07/13/17 04:00 60 07/13/17 04:00 97.0 65 142/77 95 07/13/17 00:00 59 Intake and Output 07/12/17 07/13/17 19:00 07:00 Intake Total 497.5 ml 120 ml Output Total 450 ml 250 ml Balance 47.5 ml -130 ml Intake Oral 360 ml 120 ml IV Total 137.5 ml Output Urine Total 450 ml 250 ml # Voids 1 1 # Bowel Movements 1 Laboratory Tests 07/13/17 03:35: White Blood Count 4.0L, Red Blood Count 3.40L, Hemoglobin 8.3L, Hematocrit 25.9L , Mean Corpuscular Volume 76L, Mean Corpuscular Hemoglobin 24.5L, Mean Corpuscular Hemoglobin Concent 32.1, Red Cell Distribution Width 15.9H, Platelet Count 247, Mean Platelet Volume 7.4, Neutrophils (%) (Auto) , Lymphocytes (%) (Auto) , Monocytes (%) (Auto) , Eosinophils (%) (Auto) , Basophils (%) (Auto) , Prothrombin Time 11.2, Prothromb Time International Ratio 1.1, Sodium Level 138, Potassium Level 3.7, Chloride Level 107, Carbon Dioxide Level 27, Anion Gap 5, Blood Urea Nitrogen 6L, Creatinine 0.7, Estimat Glomerular Filtration Rate , Glucose Level 84, Calcium Level 8.0L, Troponin I 0.016, Pro-B-Type Natriuretic Peptide 1078H, Triglycerides Level 38, Cholesterol Level 85, LDL Cholesterol 50, HDL Cholesterol 34L, Cholesterol/HDL Ratio 2.5L, Thyroid Stimulating Hormone (TSH) 2.050, Free Thyroxine 1.38 Height (Feet): 6 Height (Inches): 0.00 Weight (Pounds): 180 General Appearance: agitated Cardiovascular: normal rate, regular rhythm Respiratory/Chest: decreased breath sounds Abdomen: soft Edema: mild edema Michele Isabel Jul 13, 2017 23:30
[2017-07-14] VITALS: BP 147/59
[2017-07-14] MEDS: Morphine Sulfate 4mg/ml Inj IVP PRN ×3 (00:19→19:56)
[2017-07-14 04:00] VITALS: BP 134/58
--- NOTE | 2017-07-14 05:30 | Progress Note ---
DATE: 07/13/2017 SUBJECTIVE: The patient is in bed, is really agitated, irritable, not yelling, compliant with medications. MENTAL STATUS EXAMINATION: The patient is alert and oriented times self, place, disoriented. Mood is irritable and angry. Affect is constricted, congruent with mood. Thought process is concrete. Thought content, no suicidal or homicidal ideations. ASSESSMENT: 1. Agitation. 2. Encephalopathy. 3. Dementia. PLAN: We will continue the current medications. Chica Emanuel M.D. DR: DEBRA JOB#: [id number] CC:
[2017-07-14] MEDS: Bisacodyl EC 5mg tab ORAL PRN (06:14)
[2017-07-14 07:53] LABS: INR 1.2 (0.9-1.1)
[2017-07-14 08:00] VITALS: BP 141/76
--- NOTE | 2017-07-14 08:49 | Pulmonology Progress Note ---
Assessment/Plan Assessment/Plan pulmonary embolism and infarction no signs of pneumonia probable DVT recent L inguinal hernia repair continue Lovenox coumadin per pharmacy, INR still low reviewed duplex scan agitated, psych help appreciated Subjective Respiratory: Denies: shortness of breath Cardiovascular: Reports: chest pain Allergies: Coded Allergies: No Known Allergies (Unverified , 07/07/17) Objective Last 24 Hour Vital Signs Date Time Temp Pulse Resp B/P (MAP) Pulse Ox O2 Delivery O2 Flow Rate FiO2 07/14/17 04:00 98.8 56 21 134/58 96 Nasal Cannula 2.0 07/14/17 04:00 53 07/14/17 00:00 57 07/14/17 00:00 97.9 61 22 147/59 97 Nasal Cannula 2.0 07/13/17 21:10 96 Nasal Cannula 2.0 28 07/13/17 21:10 Nasal Cannula 2.0 28 07/13/17 21:02 57 145/78 07/13/17 20:09 98.6 21 145/78 95 Nasal Cannula 2.0 07/13/17 20:00 57 07/13/17 16:00 97.9 93 20 160/68 95 Nasal Cannula 2.0 07/13/17 16:00 57 07/13/17 12:00 59 07/13/17 12:00 98.2 62 20 123/52 95 Nasal Cannula 2.0 07/13/17 09:15 77 150/78 07/13/17 09:14 77 150/78 Intake and Output 07/13/17 07/14/17 19:00 07:00 Intake Total 360 ml Output Total 700 ml 150 ml Balance -340 ml -150 ml Intake Oral 360 ml Output Urine Total 700 ml 150 ml # Voids 2 General Appearance: no acute distress Respiratory/Chest: lungs clear Cardiovascular: normal rate Laboratory Tests 07/14/17 07:25: Prothrombin Time 12.8H, Prothromb Time International Ratio 1.2H Current Medications Medications (Trade) Dose Ordered Sig/Tierney Route PRN Reason Start Time Stop Time Status Last Admin Dose Admin Acetaminophen/ Hydrocodone Bitart ([place] 10/325) 1 tab Q4H PRN ORAL Severe Pain (Pain Scale 7-10) 07/13/17 10:30 07/20/17 10:29 Amlodipine Besylate (Norvasc) 5 mg DAILY ORAL 07/08/17 09:00 08/07/17 08:59 07/13/17 09:14 Ascorbic Acid (Vitamin C) 250 mg TID ORAL 07/08/17 09:00 08/07/17 08:59 07/13/17 17:50 Aspirin (Ecotrin) 81 mg DAILY ORAL 07/08/17 09:00 08/07/17 08:59 07/13/17 09:14 Atorvastatin Calcium (Lipitor) 10 mg BEDTIME ORAL 07/08/17 21:00 08/07/17 20:59 07/13/17 21:03 Baclofen (Lioresal) 10 mg THREE TIMES A DAY PRN ORAL Muscle Spasm 07/08/17 07:45 08/07/17 07:44 Bisacodyl (Dulcolax) 5 mg DAILYPRN PRN ORAL Constipation 07/08/17 15:15 08/07/17 08:29 07/14/17 06:14 Carvedilol (Coreg) 3.125 mg EVERY 12 HOURS ORAL 07/08/17 09:00 08/07/17 08:59 07/13/17 21:02 Ceftriaxone Sodium 2 gm/ Sodium Chloride 55 ml @ 110 mls/hr Q24H IVPB 07/13/17 14:00 07/20/17 13:59 07/13/17 14:13 Docusate Sodium (Colace) 200 mg BIDPRN PRN ORAL Constipation 07/08/17 15:15 08/07/17 08:59 Enoxaparin Sodium (Lovenox) 80 mg Q12HR SUBQ 07/08/17 21:00 08/07/17 20:59 07/13/17 21:06 Ferrous Sulfate (Feosol) 325 mg THREE TIMES A DAY ORAL 07/14/17 09:00 08/13/17 08:59 Finasteride (Proscar) 5 mg DAILY ORAL 07/08/17 09:00 08/07/17 08:59 07/13/17 09:13 Gabapentin (Neurontin) 200 mg EVERY 8 HOURS ORAL 07/08/17 14:00 08/07/17 13:59 07/14/17 06:14 Morphine Sulfate (Morphine Sulfate) 2 mg Q6H PRN IVP Severe Breakthru Pain (>7) 07/11/17 08:30 07/18/17 00:29 07/14/17 00:19 Naloxegol (Movantik) 12.5 mg DAILY ORAL 07/08/17 17:00 08/07/17 16:59 07/13/17 09:28 Nitroglycerin (Ntg) 0.4 mg NEEDED PRN SL Prn Chest Pain 07/08/17 08:00 08/07/17 07:59 Pantoprazole (Protonix) 40 mg ACBREAKFAST ORAL 07/08/17 08:30 08/07/17 08:29 07/14/17 06:14 Risperidone (RisperDAL) 2 mg BEDTIME ORAL 07/09/17 21:00 08/08/17 20:59 07/13/17 21:03 Warfarin Sodium (Coumadin per pharmacy) 1 ea DAILY PRN MISC Per rx protocol 07/09/17 11:45 08/08/17 11:44 Warfarin Sodium (Coumadin) 8 mg COUMADIN ONCE PO 07/14/17 17:00 07/14/17 17:01 DONTE CARSON Jul 14, 2017 08:49
--- NOTE | 2017-07-14 10:08 | Cardiac Electrophysiology PN ---
Assessment/Plan Assessment/Plan 1. Long runs of 21 beats of ventricular tachycardia. The patient denies any prior myocardial infarction with coronary artery disease. Ruled out for myocardial infarction. EF 55% Could be due to acute PE. Stress test after INR therapeutic. 2. Lower extremity edema and congestive heart failure. BNP of 1800. The 2D echocardiogram EF55%. Lower extremity Doppler POSITIVE FOR dvt. 3. Pulmonary embolism on Lovenox and Coumadin. 4. Hyperlipidemia, on Lipitor. 5. Hypertension, on Coreg 3.125 mg b.i.d. and Norvasc 5 mg daily. 6. History of hernia surgery. 7. History of trauma with sternum fracture. 8. Pneumonia, on antibiotics. DW RN Subjective Subjective Still on Lovenox and Coumadin. No chest pain or SOB Objective Last 24 Hour Vital Signs Date Time Temp Pulse Resp B/P (MAP) Pulse Ox O2 Delivery O2 Flow Rate FiO2 07/14/17 04:00 98.8 56 21 134/58 96 Nasal Cannula 2.0 07/14/17 04:00 53 07/14/17 00:00 57 07/14/17 00:00 97.9 61 22 147/59 97 Nasal Cannula 2.0 07/13/17 21:10 96 Nasal Cannula 2.0 28 07/13/17 21:10 Nasal Cannula 2.0 28 07/13/17 21:02 57 145/78 07/13/17 20:09 98.6 21 145/78 95 Nasal Cannula 2.0 07/13/17 20:00 57 07/13/17 16:00 97.9 93 20 160/68 95 Nasal Cannula 2.0 07/13/17 16:00 57 07/13/17 12:00 59 07/13/17 12:00 98.2 62 20 123/52 95 Nasal Cannula 2.0 Intake and Output 07/13/17 07/14/17 19:00 07:00 Intake Total 360 ml Output Total 700 ml 150 ml Balance -340 ml -150 ml Intake Oral 360 ml Output Urine Total 700 ml 150 ml # Voids 2 Laboratory Tests Test 07/14/17 07:25 Prothrombin Time 12.8 SEC (9.30-11.50) H Prothromb Time International Ratio 1.2 (0.9-1.1) H Objective HEAD AND NECK: Shows no JVD. LUNGS: Clear. CARDIOVASCULAR: Regular S1 and S2 with no gallop or murmur. ABDOMEN: Soft and nontender. EXTREMITIES: Bilateral lower extremity edema. WALT SMITH Jul 14, 2017 10:08
--- NOTE | 2017-07-14 10:22 | Infectious Diseases Prog Note ---
Assessment/Plan Assessment/Plan A; Pulmonary emboli Intraabdominal abscess/ infected seroma Bacteremia with Strep Pneumonia/ atelectasis Anemia DM type 2 DVT of left leg P; Continue Ceftriaxone Case was D/W Surgeon, he believes seroma is not infected Subjective ROS Limited/Unobtainable: No Respiratory: Reports: productive cough, other - blood in sputum Gastrointestinal/Abdominal: Reports: no symptoms Musculoskeletal: Reports: pain, other - all over body Allergies: Coded Allergies: No Known Allergies (Unverified , 07/07/17) Objective Vital Signs Last 24 Hour Vital Signs Date Time Temp Pulse Resp B/P (MAP) Pulse Ox O2 Delivery O2 Flow Rate FiO2 07/14/17 08:00 97.0 57 20 141/76 96 Nasal Cannula 2.0 07/14/17 04:00 98.8 56 21 134/58 96 Nasal Cannula 2.0 07/14/17 04:00 53 07/14/17 00:00 57 07/14/17 00:00 97.9 61 22 147/59 97 Nasal Cannula 2.0 07/13/17 21:10 96 Nasal Cannula 2.0 28 07/13/17 21:10 Nasal Cannula 2.0 28 07/13/17 21:02 57 145/78 07/13/17 20:09 98.6 21 145/78 95 Nasal Cannula 2.0 07/13/17 20:00 57 07/13/17 16:00 97.9 93 20 160/68 95 Nasal Cannula 2.0 07/13/17 16:00 57 07/13/17 12:00 59 07/13/17 12:00 98.2 62 20 123/52 95 Nasal Cannula 2.0 Height (Feet): 6 Height (Inches): 0.00 Weight (Pounds): 180 General Appearance: no acute distress HEENT: mucous membranes moist Respiratory/Chest: lungs clear Cardiovascular: normal rate Abdomen: soft, non tender Extremities: other - edema of lrgs Neurologic/Psychiatric: alert, oriented x 3, responsive Laboratory Tests Test 07/14/17 07:25 Prothrombin Time 12.8 SEC (9.30-11.50) H Prothromb Time International Ratio 1.2 (0.9-1.1) H Current Medications Medications (Trade) Dose Ordered Sig/Tierney Route PRN Reason Start Time Stop Time Status Last Admin Dose Admin Acetaminophen/ Hydrocodone Bitart ([place] 10/325) 1 tab Q4H PRN ORAL Severe Pain (Pain Scale 7-10) 07/13/17 10:30 07/20/17 10:29 Amlodipine Besylate (Norvasc) 5 mg DAILY ORAL 07/08/17 09:00 08/07/17 08:59 07/13/17 09:14 Ascorbic Acid (Vitamin C) 250 mg TID ORAL 07/08/17 09:00 08/07/17 08:59 07/13/17 17:50 Aspirin (Ecotrin) 81 mg DAILY ORAL 07/08/17 09:00 08/07/17 08:59 07/13/17 09:14 Atorvastatin Calcium (Lipitor) 10 mg BEDTIME ORAL 07/08/17 21:00 08/07/17 20:59 07/13/17 21:03 Baclofen (Lioresal) 10 mg THREE TIMES A DAY PRN ORAL Muscle Spasm 07/08/17 07:45 08/07/17 07:44 Bisacodyl (Dulcolax) 5 mg DAILYPRN PRN ORAL Constipation 07/08/17 15:15 08/07/17 08:29 07/14/17 06:14 Carvedilol (Coreg) 3.125 mg EVERY 12 HOURS ORAL 07/08/17 09:00 08/07/17 08:59 07/13/17 21:02 Ceftriaxone Sodium 2 gm/ Sodium Chloride 55 ml @ 110 mls/hr Q24H IVPB 07/13/17 14:00 07/20/17 13:59 07/13/17 14:13 Docusate Sodium (Colace) 200 mg BIDPRN PRN ORAL Constipation 07/08/17 15:15 08/07/17 08:59 Enoxaparin Sodium (Lovenox) 80 mg Q12HR SUBQ 07/08/17 21:00 08/07/17 20:59 07/13/17 21:06 Ferrous Sulfate (Feosol) 325 mg THREE TIMES A DAY ORAL 07/14/17 09:00 08/13/17 08:59 Finasteride (Proscar) 5 mg DAILY ORAL 07/08/17 09:00 08/07/17 08:59 07/13/17 09:13 Gabapentin (Neurontin) 200 mg EVERY 8 HOURS ORAL 07/08/17 14:00 08/07/17 13:59 07/14/17 06:14 Morphine Sulfate (Morphine Sulfate) 2 mg Q6H PRN IVP Severe Breakthru Pain (>7) 07/11/17 08:30 07/18/17 00:29 07/14/17 00:19 Naloxegol (Movantik) 12.5 mg DAILY ORAL 07/08/17 17:00 08/07/17 16:59 07/13/17 09:28 Nitroglycerin (Ntg) 0.4 mg NEEDED PRN SL Prn Chest Pain 07/08/17 08:00 08/07/17 07:59 Pantoprazole (Protonix) 40 mg ACBREAKFAST ORAL 07/08/17 08:30 08/07/17 08:29 07/14/17 06:14 Risperidone (RisperDAL) 2 mg BEDTIME ORAL 07/09/17 21:00 08/08/17 20:59 07/13/17 21:03 Warfarin Sodium (Coumadin per pharmacy) 1 ea DAILY PRN MISC Per rx protocol 07/09/17 11:45 08/08/17 11:44 Warfarin Sodium (Coumadin) 8 mg COUMADIN ONCE PO 07/14/17 17:00 07/14/17 17:01 JIN ABBSAI Jul 14, 2017 10:22
[2017-07-14] MEDS: Ascorbic Acid 500mg tab ORAL SCH ×3 (11:32→18:48)
[2017-07-14] MEDS: Aspirin EC 81mg tab ORAL SCH (11:32)
[2017-07-14] MEDS: Naloxegol Oxalate 25mg tab ORAL SCH (11:33)
[2017-07-14] MEDS: Enoxaparin 80mg Inj SUBQ SCH ×2 (11:45→21:33)
[2017-07-14 12:00] VITALS: BP 137/61
[2017-07-14] MEDS: cefTRIAXone 2 GM in NS 55 ML IVPB SCH (15:48)
[2017-07-14 16:00] VITALS: BP 137/61
--- NOTE | 2017-07-14 16:30 | General Surgery Progress Note ---
General Surgery-Progress Note Subjective Symptoms: improved Additional Comments no acute events. comfortable. no fevers. no n/v. no complaints. doing well. labs reviewed. Objective Last 24 Hour Vital Signs Date Time Temp Pulse Resp B/P (MAP) Pulse Ox O2 Delivery O2 Flow Rate FiO2 07/14/17 11:45 97.0 07/14/17 11:37 60 144/77 07/14/17 11:35 60 144/77 07/14/17 08:00 97.0 57 20 141/76 96 Nasal Cannula 2.0 07/14/17 04:00 98.8 56 21 134/58 96 Nasal Cannula 2.0 07/14/17 04:00 53 07/14/17 00:00 57 07/14/17 00:00 97.9 61 22 147/59 97 Nasal Cannula 2.0 07/13/17 21:10 96 Nasal Cannula 2.0 28 07/13/17 21:10 Nasal Cannula 2.0 28 07/13/17 21:02 57 145/78 07/13/17 20:09 98.6 21 145/78 95 Nasal Cannula 2.0 07/13/17 20:00 57 I&O Intake and Output 07/13/17 07/14/17 19:00 07:00 Intake Total 360 ml Output Total 700 ml 150 ml Balance -340 ml -150 ml Intake Oral 360 ml Output Urine Total 700 ml 150 ml # Voids 2 Wound: clean, dry, intact Drains: none Cardiovascular: RSR Respiratory: clear Abdomen: soft, flat, non-tender, present bowel sounds Extremities: no cyanosis Laboratory Tests Test 07/14/17 07:25 Prothrombin Time 12.8 SEC (9.30-11.50) H Prothromb Time International Ratio 1.2 (0.9-1.1) H Plan Problems: (1) Abdominal pain Assessment & Plan: 87M with fever, abd pain, cough, pna, recent history of left inguinal hernia repair for incarceration. anemic and thrombocytopenic. no leukocytosis. abdominal exam benign. left inguinal wound clean, dry, intact without signs of active infection. CT reviewed and small 4cm fluid collection likely seroma. no surrounding inflammation and exam very benign. very unlikely to be abscess. CT chest with PE. surgical site followed for some time now. No changes. No signs of infection. No issues. Mehul removed. Wound healing well. Hernia without recurrence. There is NO intraabdominal abscess. Area of seroma is outside of the intraabdominal cavity and in the inguinal region. Seroma post inguinal hernia repair very command and can take weeks to heal. Do not recommend drainage at this time. completely asymptomatic as it currently is (incidental finding found on CT). Will need to be followed but can be done as an outpatient. can do ultrasound or repeat CT in a few weeks to ensure resolved. -On Tx for PE -surgical site mehul removed for patient as it was time. -no acute surgical intervention necessary -will follow exam and with recs. -okay to d/c from surgical standpoint follow up with primary surgeon in 1-2 weeks after d/c. can follow up with me if desired. thank you for this consultation. Abhay Thomson Jul 14, 2017 16:30
--- NOTE | 2017-07-14 16:56 | General Progress Note ---
Assessment/Plan Assessment/Plan (1) Abdominal pain (2) Status post left inguinal herniorrhaphy (3) Atypical chest pain (4) Pneumonia (5) Pulmonary embolism Patient to be continued on [place] and Morphine as needed. D/w Dr. Melchor and he concurred. Subjective Date patient seen: Jul 14, 2017 Time patient seen: 04:30 - pm Allergies: Coded Allergies: No Known Allergies (Unverified , 07/07/17) Subjective Constitutional: Reports: no symptoms HEENT: Reports: no symptoms Cardiovascular: Reports: chest pain Respiratory: Reports: shortness of breath, sputum Gastrointestinal/Abdominal: Reports: abdominal pain Genitourinary: Reports: burning Neurologic/Psychiatric: Reports: depressed Endocrine: Reports: no symptoms Hematologic/Lymphatic: Reports: no symptoms Subjective Patient is laying in bed and reports pain is unchanged and reduced on the Morphine which he uses as needed. Objective Last 24 Hour Vital Signs Date Time Temp Pulse Resp B/P (MAP) Pulse Ox O2 Delivery O2 Flow Rate FiO2 07/14/17 11:45 97.0 07/14/17 11:37 60 144/77 07/14/17 11:35 60 144/77 07/14/17 08:00 97.0 57 20 141/76 96 Nasal Cannula 2.0 07/14/17 04:00 98.8 56 21 134/58 96 Nasal Cannula 2.0 07/14/17 04:00 53 07/14/17 00:00 57 07/14/17 00:00 97.9 61 22 147/59 97 Nasal Cannula 2.0 07/13/17 21:10 96 Nasal Cannula 2.0 28 07/13/17 21:10 Nasal Cannula 2.0 28 07/13/17 21:02 57 145/78 07/13/17 20:09 98.6 21 145/78 95 Nasal Cannula 2.0 07/13/17 20:00 57 Intake and Output 07/13/17 07/14/17 19:00 07:00 Intake Total 360 ml Output Total 700 ml 150 ml Balance -340 ml -150 ml Intake Oral 360 ml Output Urine Total 700 ml 150 ml # Voids 2 Laboratory Tests 07/14/17 07:25: Prothrombin Time 12.8H, Prothromb Time International Ratio 1.2H Height (Feet): 6 Height (Inches): 0.00 Weight (Pounds): 180 Objective General Appearance: no apparent distress, alert EENT: PERRL/EOMI, normal ENT inspection Neck: non-tender, normal alignment Cardiovascular: normal rate, regular rhythm Respiratory/Chest: decreased breath sounds Abdomen: tender Extremities: non-tender Edema: trace edema Neurologic: alert, oriented x 3 Skin: warm/dry BOB KENT Jul 14, 2017 16:56
[2017-07-14] MEDS ORDERED: Warfarin Sodium 4mg PO ONE (17:00)
--- NOTE | 2017-07-14 17:36 | Cardiology Report ---
APPROVED REPORT EKG Measurement Heart [id number] Sinus bradycardia with 1st degree AV block with premature atrial complexes Right bundle branch block Abnormal ECG
[2017-07-14 20:00] VITALS: BP 145/68
--- NOTE | 2017-07-14 20:07 | General Progress Note ---
Assessment/Plan Problem List: (1) Pulmonary embolism ICD Codes: I26.99 - Other pulmonary embolism without acute cor pulmonale SNOMED: 37691068 (2) Pneumonia ICD Codes: J18.9 - Pneumonia, unspecified organism SNOMED: 955459458 (3) Anemia ICD Codes: D64.9 - Anemia, unspecified SNOMED: 579662289 (4) Abdominal pain ICD Codes: R10.9 - Unspecified abdominal pain SNOMED: 54731780 Qualifiers: Qualified Codes: R10.84 - Generalized abdominal pain (5) Thrombocytopenia ICD Codes: D69.6 - Thrombocytopenia, unspecified SNOMED: 853226558 Status: progressing Assessment/Plan pulmonary embolism inr is still below 2 no bleeding anemia afebrile no pna reviewed chart and labs Subjective ROS Limited/Unobtainable: Yes Allergies: Coded Allergies: No Known Allergies (Unverified , 07/07/17) Subjective leg pain Objective Last 24 Hour Vital Signs Date Time Temp Pulse Resp B/P (MAP) Pulse Ox O2 Delivery O2 Flow Rate FiO2 07/14/17 16:00 55 07/14/17 16:00 97.5 59 20 137/61 95 Nasal Cannula 2.0 07/14/17 12:00 97.6 18 137/61 95 Nasal Cannula 2.0 07/14/17 12:00 68 07/14/17 11:45 97.0 07/14/17 11:37 60 144/77 07/14/17 11:35 60 144/77 07/14/17 08:00 61 07/14/17 08:00 97.0 57 20 141/76 96 Nasal Cannula 2.0 07/14/17 04:00 98.8 56 21 134/58 96 Nasal Cannula 2.0 07/14/17 04:00 53 07/14/17 00:00 57 07/14/17 00:00 97.9 61 22 147/59 97 Nasal Cannula 2.0 07/13/17 21:10 96 Nasal Cannula 2.0 28 07/13/17 21:10 Nasal Cannula 2.0 28 07/13/17 21:02 57 145/78 07/13/17 20:09 98.6 21 145/78 95 Nasal Cannula 2.0 Intake and Output 07/13/17 07/14/17 19:00 07:00 Intake Total 360 ml Output Total 700 ml 150 ml Balance -340 ml -150 ml Intake Oral 360 ml Output Urine Total 700 ml 150 ml # Voids 2 Laboratory Tests 07/14/17 07:25: Prothrombin Time 12.8H, Prothromb Time International Ratio 1.2H Height (Feet): 6 Height (Inches): 0.00 Weight (Pounds): 180 Cardiovascular: normal rate Respiratory/Chest: chest wall non-tender Abdomen: soft Mariia Costello MD Jul 14, 2017 20:07
[2017-07-14] MEDS ORDERED: Haloperidol 5mg/ml Inj IM PRN (23:00)
--- NOTE | 2017-07-14 23:31 | General Progress Note ---
Assessment/Plan Status: unchanged Assessment/Plan #. Pulmonary embolism. --> Patient was started on Lovenox and Coumadin --> Cont. to monitor closely. --> On morphine for pain control. --> INR goal is between 2.0 and 3.0, currently 1.2 --> S/P venous duplex revealing acute occlusive thrombosis in genicular vein of right leg #. Anemia due to underlying iron deficiency. --> Anemia workup reviewed. --> Does not need blood transfusion today. Hgb >8 --> Currently, no evidence of hemolysis. --> Creatinine is stable at this time. #. Thrombocytopenia, platelet count of 86,000, improved. --> Resolved. --> Continue to closely monitor. --> Consider human immunodeficiency and hepatitis panel if does not improve. #. Leukocytosis. --> Resolved. #. Pneumonia related to pneumonia infection contributing to leukocytosis. #. Chest pain. #. Abdominal pain. Subjective Constitutional: Denies: no symptoms, chills, diaphoresis, fever, malaise, weakness, other HEENT: Denies: no symptoms, eye pain, blurred vision, tearing, double vision, ear pain, ear discharge, nose pain, nose congestion, throat pain, throat swelling, mouth pain, mouth swelling, other Cardiovascular: Denies: no symptoms, chest pain, edema, irregular heart rate, lightheadedness, palpitations, syncope, other Respiratory: Denies: no symptoms, cough, orthopnea, shortness of breath, SOB with excertion, SOB at rest, sputum, stridor, wheezing, other Gastrointestinal/Abdominal: Denies: no symptoms, abdomen distended, abdominal pain, black stools, tarry stools, blood in stool, constipated, diarrhea, difficulty swallowing, nausea, poor appetite, poor fluid intake, rectal bleeding , vomiting, other Genitourinary: Denies: no symptoms, burning, discharge, frequency, flank pain, hematuria, incontinence, pain, urgency, other Hematologic/Lymphatic: Reports: anemia Allergies: Coded Allergies: No Known Allergies (Unverified , 07/07/17) Subjective Pain is unchanged. Remains on morphine. NAD. Objective Last 24 Hour Vital Signs Date Time Temp Pulse Resp B/P (MAP) Pulse Ox O2 Delivery O2 Flow Rate FiO2 07/14/17 21:28 60 145/68 07/14/17 20:00 99.7 60 20 145/68 95 Nasal Cannula 2.0 07/14/17 20:00 63 07/14/17 16:00 55 07/14/17 16:00 97.5 59 20 137/61 95 Nasal Cannula 2.0 07/14/17 12:00 97.6 18 137/61 95 Nasal Cannula 2.0 07/14/17 12:00 68 07/14/17 11:45 97.0 07/14/17 11:37 60 144/77 07/14/17 11:35 60 144/77 07/14/17 08:00 61 07/14/17 08:00 97.0 57 20 141/76 96 Nasal Cannula 2.0 07/14/17 04:00 98.8 56 21 134/58 96 Nasal Cannula 2.0 07/14/17 04:00 53 07/14/17 00:00 57 07/14/17 00:00 97.9 61 22 147/59 97 Nasal Cannula 2.0 Intake and Output 07/13/17 07/14/17 19:00 07:00 Intake Total 360 ml Output Total 700 ml 150 ml Balance -340 ml -150 ml Intake Oral 360 ml Output Urine Total 700 ml 150 ml # Voids 2 Laboratory Tests 07/14/17 07:25: Prothrombin Time 12.8H, Prothromb Time International Ratio 1.2H Height (Feet): 6 Height (Inches): 0.00 Weight (Pounds): 180 General Appearance: agitated Neck: supple Respiratory/Chest: decreased breath sounds Abdomen: soft Michele Isabel Jul 14, 2017 23:31
[2017-07-15] VITALS: BP 128/60
[2017-07-15] MEDS: Morphine Sulfate 4mg/ml Inj IVP PRN ×2 (03:43→18:40)
[2017-07-15 04:00] VITALS: BP 120/60
--- NOTE | 2017-07-15 04:31 | Progress Note ---
DATE: 07/15/2017 SUBJECTIVE: The patient is in bed, yelling, screaming, and agitated. Has not been taking medications and refusing care today. During the evaluation, the patient was illogical and was aggressive and abusive towards the staff. MENTAL STATUS EXAMINATION: The patient is alert and oriented to times self. Mood is agitated. Affect is constricted, congruent with mood. Thought process is concrete. Thought content, no suicidal or homicidal ideations. ASSESSMENT: 1. Encephalopathy. 2. Agitation. 3. Dementia. PLAN: 1. We will continue the risperidone 2 mg at bedtime. 2. We will start the patient on Haldol 5 mg q.6 h. p.r.n. for anxiety and agitation. Chica Emanuel M.D. DR: Andrzej JOB#: [id number] CC:
[2017-07-15] MEDS: Bisacodyl EC 5mg tab ORAL PRN (05:54)
[2017-07-15 08:00] VITALS: BP 123/54
[2017-07-15 08:07] LABS: INR 1.5 (0.9-1.1)
--- NOTE | 2017-07-15 08:51 | General Progress Note ---
Assessment/Plan Assessment/Plan (1) Abdominal pain (2) Status post left inguinal herniorrhaphy (3) Atypical chest pain (4) Pneumonia (5) Pulmonary embolism Patient to be continued on [place] and Morphine as needed. D/w Dr. Melchor and he concurred. Subjective Date patient seen: Jul 15, 2017 Time patient seen: 07:15 - am Allergies: Coded Allergies: No Known Allergies (Unverified , 07/07/17) Subjective Constitutional: Reports: no symptoms HEENT: Reports: no symptoms Cardiovascular: Reports: chest pain Respiratory: Reports: shortness of breath Gastrointestinal/Abdominal: Reports: abdominal pain Genitourinary: Reports: burning Neurologic/Psychiatric: Reports: depressed Endocrine: Reports: no symptoms Hematologic/Lymphatic: Reports: no symptoms Subjective He is in bed and reports that his pain has been at a moderate level on the Morphine and Ferrum. Objective Last 24 Hour Vital Signs Date Time Temp Pulse Resp B/P (MAP) Pulse Ox O2 Delivery O2 Flow Rate FiO2 07/15/17 08:00 98.1 62 20 123/54 100 Nasal Cannula 2.0 07/15/17 04:00 56 07/15/17 04:00 98.0 72 21 120/60 99 Nasal Cannula 2.0 07/15/17 00:00 99.7 60 20 128/60 99 Nasal Cannula 2.0 07/14/17 21:28 60 145/68 07/14/17 20:00 99.7 60 20 145/68 95 Nasal Cannula 2.0 07/14/17 20:00 63 07/14/17 16:00 55 07/14/17 16:00 97.5 59 20 137/61 95 Nasal Cannula 2.0 07/14/17 12:00 97.6 18 137/61 95 Nasal Cannula 2.0 07/14/17 12:00 68 07/14/17 11:45 97.0 07/14/17 11:37 60 144/77 07/14/17 11:35 60 144/77 Intake and Output 07/14/17 07/15/17 19:00 07:00 Intake Total 915 ml Output Total 700 ml 300 ml Balance 215 ml -300 ml Intake Oral 860 ml IV Total 55 ml Output Urine Total 700 ml 300 ml # Voids 2 Laboratory Tests 07/15/17 07:20: Prothrombin Time 15.4H, Prothromb Time International Ratio 1.5H Height (Feet): 6 Height (Inches): 0.00 Weight (Pounds): 180 Objective General Appearance: no apparent distress, alert EENT: PERRL/EOMI, normal ENT inspection Neck: non-tender, normal alignment Cardiovascular: normal rate, regular rhythm Respiratory/Chest: decreased breath sounds Abdomen: tender Extremities: non-tender Edema: trace edema Neurologic: alert, oriented x 3 Skin: warm/dry BOB KENT PZach Jul 15, 2017 08:51
[2017-07-15] MEDS: Naloxegol Oxalate 25mg tab ORAL SCH (09:20)
[2017-07-15] MEDS: Aspirin EC 81mg tab ORAL SCH (09:20)
[2017-07-15] MEDS: Ascorbic Acid 500mg tab ORAL SCH ×3 (09:20→17:35)
[2017-07-15] MEDS: Enoxaparin 80mg Inj SUBQ SCH ×2 (09:29→22:46)
--- NOTE | 2017-07-15 10:29 | Infectious Diseases Prog Note ---
Assessment/Plan Assessment/Plan A; Pulmonary emboli Intraabdominal abscess/ infected seroma Bacteremia with Strep Pneumonia/ atelectasis Anemia DM type 2 DVT of left leg P; Continue Ceftriaxone Case was D/W Surgeon, he believes seroma is not infected Subjective ROS Limited/Unobtainable: Yes Respiratory: Reports: no symptoms Gastrointestinal/Abdominal: Reports: no symptoms Genitourinary: Reports: no symptoms Allergies: Coded Allergies: No Known Allergies (Unverified , 07/07/17) Objective Vital Signs Last 24 Hour Vital Signs Date Time Temp Pulse Resp B/P (MAP) Pulse Ox O2 Delivery O2 Flow Rate FiO2 07/15/17 09:20 62 123/54 07/15/17 09:20 62 123/54 07/15/17 08:00 98.1 62 20 123/54 100 Nasal Cannula 2.0 07/15/17 04:00 56 07/15/17 04:00 98.0 72 21 120/60 99 Nasal Cannula 2.0 07/15/17 00:00 99.7 60 20 128/60 99 Nasal Cannula 2.0 07/14/17 21:28 60 145/68 07/14/17 20:00 99.7 60 20 145/68 95 Nasal Cannula 2.0 07/14/17 20:00 63 07/14/17 16:00 55 07/14/17 16:00 97.5 59 20 137/61 95 Nasal Cannula 2.0 07/14/17 12:00 97.6 18 137/61 95 Nasal Cannula 2.0 07/14/17 12:00 68 07/14/17 11:45 97.0 07/14/17 11:37 60 144/77 07/14/17 11:35 60 144/77 Height (Feet): 6 Height (Inches): 0.00 Weight (Pounds): 180 General Appearance: no acute distress HEENT: mucous membranes moist Respiratory/Chest: lungs clear Cardiovascular: normal rate Abdomen: soft, non tender Extremities: other - edema of left leg Neurologic/Psychiatric: alert, oriented x 3, responsive Laboratory Tests Test 07/15/17 07:20 Prothrombin Time 15.4 SEC (9.30-11.50) H Prothromb Time International Ratio 1.5 (0.9-1.1) H Current Medications Medications (Trade) Dose Ordered Sig/Tierney Route PRN Reason Start Time Stop Time Status Last Admin Dose Admin Acetaminophen/ Hydrocodone Bitart ([place] 10/325) 1 tab Q4H PRN ORAL Severe Pain (Pain Scale 7-10) 07/13/17 10:30 07/20/17 10:29 Amlodipine Besylate (Norvasc) 5 mg DAILY ORAL 07/08/17 09:00 08/07/17 08:59 07/15/17 09:20 Ascorbic Acid (Vitamin C) 250 mg TID ORAL 07/08/17 09:00 08/07/17 08:59 07/15/17 09:20 Aspirin (Ecotrin) 81 mg DAILY ORAL 07/08/17 09:00 08/07/17 08:59 07/15/17 09:20 Atorvastatin Calcium (Lipitor) 10 mg BEDTIME ORAL 07/08/17 21:00 08/07/17 20:59 07/14/17 21:29 Baclofen (Lioresal) 10 mg THREE TIMES A DAY PRN ORAL Muscle Spasm 07/08/17 07:45 08/07/17 07:44 Bisacodyl (Dulcolax) 5 mg DAILYPRN PRN ORAL Constipation 07/08/17 15:15 08/07/17 08:29 07/15/17 05:54 Carvedilol (Coreg) 3.125 mg EVERY 12 HOURS ORAL 07/08/17 09:00 08/07/17 08:59 07/15/17 09:20 Ceftriaxone Sodium 2 gm/ Sodium Chloride 55 ml @ 110 mls/hr Q24H IVPB 07/13/17 14:00 07/20/17 13:59 07/14/17 15:48 Docusate Sodium (Colace) 200 mg BIDPRN PRN ORAL Constipation 07/08/17 15:15 08/07/17 08:59 Enoxaparin Sodium (Lovenox) 80 mg Q12HR SUBQ 07/08/17 21:00 08/07/17 20:59 07/15/17 09:29 Ferrous Sulfate (Feosol) 325 mg THREE TIMES A DAY ORAL 07/14/17 09:00 08/13/17 08:59 07/15/17 09:20 Finasteride (Proscar) 5 mg DAILY ORAL 07/08/17 09:00 08/07/17 08:59 07/15/17 09:20 Gabapentin (Neurontin) 200 mg EVERY 8 HOURS ORAL 07/08/17 14:00 08/07/17 13:59 07/15/17 05:54 Haloperidol Lactate (Haldol) 5 mg Q6H PRN IM Agitation 07/14/17 23:00 08/13/17 22:59 Morphine Sulfate (Morphine Sulfate) 2 mg Q6H PRN IVP Severe Breakthru Pain (>7) 07/11/17 08:30 07/18/17 00:29 07/15/17 03:43 Naloxegol (Movantik) 12.5 mg DAILY ORAL 07/08/17 17:00 08/07/17 16:59 07/15/17 09:20 Nitroglycerin (Ntg) 0.4 mg NEEDED PRN SL Prn Chest Pain 07/08/17 08:00 08/07/17 07:59 Pantoprazole (Protonix) 40 mg ACBREAKFAST ORAL 07/08/17 08:30 08/07/17 08:29 07/15/17 05:54 Risperidone (RisperDAL) 2 mg BEDTIME ORAL 07/09/17 21:00 08/08/17 20:59 07/14/17 21:29 Warfarin Sodium (Coumadin per pharmacy) 1 ea DAILY PRN MISC Per rx protocol 07/09/17 11:45 08/08/17 11:44 Warfarin Sodium (Coumadin) 8 mg COUMADIN ONCE PO 07/15/17 17:00 07/15/17 17:01 JIN ABBASI Jul 15, 2017 10:29
--- NOTE | 2017-07-15 10:44 | Cardiac Electrophysiology PN ---
Assessment/Plan Assessment/Plan 1. Long runs of 21 beats of ventricular tachycardia. The patient denies any prior myocardial infarction with coronary artery disease. Ruled out for myocardial infarction. EF 55% Could be due to acute PE. Stress test after INR therapeutic. No further VT 2. Lower extremity edema and congestive heart failure. BNP of 1800. EF55%. Lower extremity Doppler POSITIVE FOR dvt. 3. Pulmonary embolism on Lovenox and Coumadin. 4. Hyperlipidemia, on Lipitor. 5. Hypertension, on Coreg 3.125 mg b.i.d. and Norvasc 5 mg daily. 6. History of hernia surgery. 7. History of trauma with sternum fracture. 8. Pneumonia, on antibiotics. DW RN Subjective Subjective On Lovenox and Coumadin. No chest pain or SOB Objective Last 24 Hour Vital Signs Date Time Temp Pulse Resp B/P (MAP) Pulse Ox O2 Delivery O2 Flow Rate FiO2 07/15/17 09:20 62 123/54 07/15/17 09:20 62 123/54 07/15/17 08:00 98.1 62 20 123/54 100 Nasal Cannula 2.0 07/15/17 08:00 68 07/15/17 04:00 56 07/15/17 04:00 98.0 72 21 120/60 99 Nasal Cannula 2.0 07/15/17 00:00 99.7 60 20 128/60 99 Nasal Cannula 2.0 07/14/17 21:28 60 145/68 07/14/17 20:00 99.7 60 20 145/68 95 Nasal Cannula 2.0 07/14/17 20:00 63 07/14/17 16:00 55 07/14/17 16:00 97.5 59 20 137/61 95 Nasal Cannula 2.0 07/14/17 12:00 97.6 18 137/61 95 Nasal Cannula 2.0 07/14/17 12:00 68 07/14/17 11:45 97.0 07/14/17 11:37 60 144/77 07/14/17 11:35 60 144/77 Intake and Output 07/14/17 07/15/17 19:00 07:00 Intake Total 915 ml Output Total 700 ml 300 ml Balance 215 ml -300 ml Intake Oral 860 ml IV Total 55 ml Output Urine Total 700 ml 300 ml # Voids 2 Laboratory Tests Test 07/15/17 07:20 Prothrombin Time 15.4 SEC (9.30-11.50) H Prothromb Time International Ratio 1.5 (0.9-1.1) H Objective HEAD AND NECK: no JVD. LUNGS: Clear. CARDIOVASCULAR: Regular S1 and S2 with no gallop or murmur. ABDOMEN: Soft and nontender. EXTREMITIES: Bilateral lower extremity edema. WALT SMITH Jul 15, 2017 10:44
[2017-07-15 12:00] VITALS: BP 113/75
[2017-07-15] MEDS: cefTRIAXone 2 GM in NS 55 ML IVPB SCH (13:48)
--- NOTE | 2017-07-15 16:33 | Pulmonology Progress Note ---
Assessment/Plan Assessment/Plan pulmonary embolism and infarction no signs of pneumonia DVT VT recent L inguinal hernia repair continue Lovenox reviewed cardiology notes coumadin per pharmacy, INR 1.5 agitated, disc w psych Subjective Respiratory: Denies: shortness of breath Cardiovascular: Reports: chest pain Allergies: Coded Allergies: No Known Allergies (Unverified , 07/07/17) Objective Last 24 Hour Vital Signs Date Time Temp Pulse Resp B/P (MAP) Pulse Ox O2 Delivery O2 Flow Rate FiO2 07/15/17 12:00 98.0 65 19 113/75 100 Nasal Cannula 2.0 07/15/17 12:00 56 07/15/17 11:30 97 Nasal Cannula 2.0 28 07/15/17 11:30 Nasal Cannula 2.0 28 07/15/17 09:20 62 123/54 07/15/17 09:20 62 123/54 07/15/17 08:00 98.1 62 20 123/54 100 Nasal Cannula 2.0 07/15/17 08:00 68 07/15/17 04:00 56 07/15/17 04:00 98.0 72 21 120/60 99 Nasal Cannula 2.0 07/15/17 00:00 99.7 60 20 128/60 99 Nasal Cannula 2.0 07/14/17 21:28 60 145/68 07/14/17 20:00 99.7 60 20 145/68 95 Nasal Cannula 2.0 07/14/17 20:00 63 Intake and Output 07/14/17 07/15/17 19:00 07:00 Intake Total 915 ml Output Total 700 ml 300 ml Balance 215 ml -300 ml Intake Oral 860 ml IV Total 55 ml Output Urine Total 700 ml 300 ml # Voids 2 General Appearance: no acute distress HEENT: atraumatic Respiratory/Chest: lungs clear Cardiovascular: normal rate Laboratory Tests 07/15/17 07:20: Prothrombin Time 15.4H, Prothromb Time International Ratio 1.5H Current Medications Medications (Trade) Dose Ordered Sig/Tierney Route PRN Reason Start Time Stop Time Status Last Admin Dose Admin Acetaminophen/ Hydrocodone Bitart ([place] 10/325) 1 tab Q4H PRN ORAL Severe Pain (Pain Scale 7-10) 07/13/17 10:30 07/20/17 10:29 Amlodipine Besylate (Norvasc) 5 mg DAILY ORAL 07/08/17 09:00 08/07/17 08:59 07/15/17 09:20 Ascorbic Acid (Vitamin C) 250 mg TID ORAL 07/08/17 09:00 08/07/17 08:59 07/15/17 13:47 Aspirin (Ecotrin) 81 mg DAILY ORAL 07/08/17 09:00 08/07/17 08:59 07/15/17 09:20 Atorvastatin Calcium (Lipitor) 10 mg BEDTIME ORAL 07/08/17 21:00 08/07/17 20:59 07/14/17 21:29 Baclofen (Lioresal) 10 mg THREE TIMES A DAY PRN ORAL Muscle Spasm 07/08/17 07:45 08/07/17 07:44 Bisacodyl (Dulcolax) 5 mg DAILYPRN PRN ORAL Constipation 07/08/17 15:15 08/07/17 08:29 07/15/17 05:54 Carvedilol (Coreg) 3.125 mg EVERY 12 HOURS ORAL 07/08/17 09:00 08/07/17 08:59 07/15/17 09:20 Ceftriaxone Sodium 2 gm/ Sodium Chloride 55 ml @ 110 mls/hr Q24H IVPB 07/13/17 14:00 07/20/17 13:59 07/15/17 13:48 Docusate Sodium (Colace) 200 mg BIDPRN PRN ORAL Constipation 07/08/17 15:15 08/07/17 08:59 Enoxaparin Sodium (Lovenox) 80 mg Q12HR SUBQ 07/08/17 21:00 08/07/17 20:59 07/15/17 09:29 Ferrous Sulfate (Feosol) 325 mg THREE TIMES A DAY ORAL 07/14/17 09:00 08/13/17 08:59 07/15/17 13:47 Finasteride (Proscar) 5 mg DAILY ORAL 07/08/17 09:00 08/07/17 08:59 07/15/17 09:20 Gabapentin (Neurontin) 200 mg EVERY 8 HOURS ORAL 07/08/17 14:00 08/07/17 13:59 07/15/17 13:47 Haloperidol Lactate (Haldol) 5 mg Q6H PRN IM Agitation 07/14/17 23:00 08/13/17 22:59 Morphine Sulfate (Morphine Sulfate) 2 mg Q6H PRN IVP Severe Breakthru Pain (>7) 07/11/17 08:30 07/18/17 00:29 07/15/17 03:43 Naloxegol (Movantik) 12.5 mg DAILY ORAL 07/08/17 17:00 08/07/17 16:59 07/15/17 09:20 Nitroglycerin (Ntg) 0.4 mg NEEDED PRN SL Prn Chest Pain 07/08/17 08:00 08/07/17 07:59 Pantoprazole (Protonix) 40 mg ACBREAKFAST ORAL 07/08/17 08:30 08/07/17 08:29 07/15/17 05:54 Risperidone (RisperDAL) 2 mg BEDTIME ORAL 07/09/17 21:00 08/08/17 20:59 07/14/17 21:29 Warfarin Sodium (Coumadin per pharmacy) 1 ea DAILY PRN MISC Per rx protocol 07/09/17 11:45 08/08/17 11:44 Warfarin Sodium (Coumadin) 8 mg COUMADIN ONCE PO 07/15/17 17:00 07/15/17 17:01 DONTE CARSON Jul 15, 2017 16:33
[2017-07-15] MEDS ORDERED: Warfarin Sodium 4mg PO ONE (17:00)
[2017-07-15 20:00] VITALS: BP 145/78
--- NOTE | 2017-07-15 21:48 | General Progress Note ---
Assessment/Plan Problem List: (1) Pulmonary embolism ICD Codes: I26.99 - Other pulmonary embolism without acute cor pulmonale SNOMED: 24071035 (2) Pneumonia ICD Codes: J18.9 - Pneumonia, unspecified organism SNOMED: 641051061 (3) Anemia ICD Codes: D64.9 - Anemia, unspecified SNOMED: 250114907 (4) Abdominal pain ICD Codes: R10.9 - Unspecified abdominal pain SNOMED: 96158995 Qualifiers: Qualified Codes: R10.84 - Generalized abdominal pain (5) Thrombocytopenia ICD Codes: D69.6 - Thrombocytopenia, unspecified SNOMED: 404634859 Status: progressing Assessment/Plan pulmonary embolism waiting for therapeutic inr Subjective ROS Limited/Unobtainable: Yes Allergies: Coded Allergies: No Known Allergies (Unverified , 07/07/17) Subjective leg pain Objective Last 24 Hour Vital Signs Date Time Temp Pulse Resp B/P (MAP) Pulse Ox O2 Delivery O2 Flow Rate FiO2 07/15/17 19:10 98.0 07/15/17 16:00 61 07/15/17 12:00 98.0 65 19 113/75 100 Nasal Cannula 2.0 07/15/17 12:00 56 07/15/17 11:30 97 Nasal Cannula 2.0 28 07/15/17 11:30 Nasal Cannula 2.0 28 07/15/17 09:20 62 123/54 07/15/17 09:20 62 123/54 07/15/17 08:00 98.1 62 20 123/54 100 Nasal Cannula 2.0 07/15/17 08:00 68 07/15/17 04:00 56 07/15/17 04:00 98.0 72 21 120/60 99 Nasal Cannula 2.0 07/15/17 00:00 99.7 60 20 128/60 99 Nasal Cannula 2.0 Intake and Output 07/14/17 07/15/17 19:00 07:00 Intake Total 915 ml Output Total 700 ml 300 ml Balance 215 ml -300 ml Intake Oral 860 ml IV Total 55 ml Output Urine Total 700 ml 300 ml # Voids 2 Laboratory Tests 07/15/17 07:20: Prothrombin Time 15.4H, Prothromb Time International Ratio 1.5H Height (Feet): 6 Height (Inches): 0.00 Weight (Pounds): 180 Neck: supple Cardiovascular: normal rate Respiratory/Chest: lungs clear Abdomen: soft Mariia Costello MD Jul 15, 2017 21:48
--- NOTE | 2017-07-15 22:45 | Progress Note ---
DATE: 07/15/2017 SUBJECTIVE: The patient still has episodes of anxiety and agitation. Haldol has been calming him down. The patient is confused and has episodes of agitation. MENTAL STATUS EXAMINATION: The patient is alert and oriented times self. Mood is agitated. Affect is flat. Thought process, there is a paucity of thought content. Thought content, no suicidal or homicidal ideations. ASSESSMENT: 1. Agitation. 2. Encephalopathy. PLAN: We will continue current medications. Chica Emanuel M.D. DR: UGO JOB#: [id number] CC:
--- NOTE | 2017-07-15 23:23 | General Progress Note ---
Assessment/Plan Assessment/Plan #. Pulmonary embolism. --> Patient was started on Lovenox and Coumadin --> Cont. to monitor closely. --> On morphine for pain control in right leg. --> INR goal is between 2.0 and 3.0, currently 1.5. Improved. --> S/P venous duplex revealing acute occlusive thrombosis in genicular vein of right leg #. Anemia due to underlying iron deficiency. --> Anemia workup reviewed. --> Does not need blood transfusion today. Hgb >8 --> Currently, no evidence of hemolysis. --> Creatinine is stable at this time. #. Thrombocytopenia, platelet count of 86,000, improved. --> Resolved. --> Continue to closely monitor. --> Consider human immunodeficiency and hepatitis panel if does not improve. #. Leukocytosis. --> Resolved. #. Pneumonia related to pneumonia infection contributing to leukocytosis. #. Chest pain. #. Abdominal pain. Subjective Date patient seen: Jul 15, 2017 Constitutional: Denies: no symptoms, chills, diaphoresis, fever, malaise, weakness, other HEENT: Denies: no symptoms, eye pain, blurred vision, tearing, double vision, ear pain, ear discharge, nose pain, nose congestion, throat pain, throat swelling, mouth pain, mouth swelling, other Cardiovascular: Denies: no symptoms, chest pain, edema, irregular heart rate, lightheadedness, palpitations, syncope, other Respiratory: Denies: no symptoms, cough, orthopnea, shortness of breath, SOB with excertion, SOB at rest, sputum, stridor, wheezing, other Gastrointestinal/Abdominal: Denies: no symptoms, abdomen distended, abdominal pain, black stools, tarry stools, blood in stool, constipated, diarrhea, difficulty swallowing, nausea, poor appetite, poor fluid intake, rectal bleeding , vomiting, other Genitourinary: Denies: no symptoms, burning, discharge, frequency, flank pain, hematuria, incontinence, pain, urgency, other Neurologic/Psychiatric: Denies: no symptoms, anxiety, depressed, emotional problems, headache, numbness, paresthesia, pre-existing deficit, seizure, tingling, tremors, weakness, other Hematologic/Lymphatic: Reports: anemia Allergies: Coded Allergies: No Known Allergies (Unverified , 07/07/17) Subjective Agitated and confused. On pain management for leg pain. Objective Last 24 Hour Vital Signs Date Time Temp Pulse Resp B/P (MAP) Pulse Ox O2 Delivery O2 Flow Rate FiO2 07/15/17 22:28 99 114/64 07/15/17 20:00 98.4 63 19 145/78 98 Nasal Cannula 2.0 07/15/17 19:10 98.0 07/15/17 19:05 Nasal Cannula 2.0 28 07/15/17 19:05 98 Nasal Cannula 2.0 28 07/15/17 16:00 61 07/15/17 12:00 98.0 65 19 113/75 100 Nasal Cannula 2.0 07/15/17 12:00 56 07/15/17 11:30 97 Nasal Cannula 2.0 28 07/15/17 11:30 Nasal Cannula 2.0 28 07/15/17 09:20 62 123/54 07/15/17 09:20 62 123/54 07/15/17 08:00 98.1 62 20 123/54 100 Nasal Cannula 2.0 07/15/17 08:00 68 07/15/17 04:00 56 07/15/17 04:00 98.0 72 21 120/60 99 Nasal Cannula 2.0 07/15/17 00:00 99.7 60 20 128/60 99 Nasal Cannula 2.0 Intake and Output 07/14/17 07/15/17 19:00 07:00 Intake Total 915 ml Output Total 700 ml 300 ml Balance 215 ml -300 ml Intake Oral 860 ml IV Total 55 ml Output Urine Total 700 ml 300 ml # Voids 2 Laboratory Tests 07/15/17 07:20: Prothrombin Time 15.4H, Prothromb Time International Ratio 1.5H Height (Feet): 6 Height (Inches): 0.00 Weight (Pounds): 180 General Appearance: confused, agitated Michele Isabel Jul 15, 2017 23:23
[2017-07-16] VITALS (7 sets, daily range): BP systolic 122–147; BP diastolic 51–66
[2017-07-16] MEDS: Morphine Sulfate 4mg/ml Inj IVP PRN (06:25)
--- NOTE | 2017-07-16 06:37 | Cardiology Report ---
APPROVED REPORT EKG Measurement Heart [id number] Atrial fibrillation with a competing junctional pacemaker Left axis deviation Left ventricular hypertrophy with QRS widening Abnormal ECG
[2017-07-16] MEDS: Naloxegol Oxalate 25mg tab ORAL SCH (08:45)
[2017-07-16] MEDS: Ascorbic Acid 500mg tab ORAL SCH ×3 (08:45→18:06)
[2017-07-16] MEDS: Aspirin EC 81mg tab ORAL SCH (08:45)
[2017-07-16] MEDS: Enoxaparin 80mg Inj SUBQ SCH (08:47)
--- NOTE | 2017-07-16 09:14 | General Progress Note ---
Assessment/Plan Assessment/Plan (1) Abdominal pain (2) Status post left inguinal herniorrhaphy (3) Atypical chest pain (4) Pneumonia (5) Pulmonary embolism Patient to be continued on Carson and Morphine as needed. D/w Dr. Melchor and he concurred. Subjective Date patient seen: Jul 16, 2017 Time patient seen: 08:15 - am Allergies: Coded Allergies: No Known Allergies (Unverified , 07/07/17) Subjective Constitutional: Reports: no symptoms HEENT: Reports: no symptoms Cardiovascular: Reports: chest pain Respiratory: Reports: shortness of breath Gastrointestinal/Abdominal: Reports: abdominal pain Genitourinary: Reports: burning Neurologic/Psychiatric: Reports: depressed Endocrine: Reports: no symptoms Hematologic/Lymphatic: Reports: no symptoms Subjective Patient reports that his pain has been at a moderate level and controlled on the Morphine and Carson as needed. He has no new complaints at this time. Objective Last 24 Hour Vital Signs Date Time Temp Pulse Resp B/P (MAP) Pulse Ox O2 Delivery O2 Flow Rate FiO2 07/16/17 08:50 64 130/51 07/16/17 08:45 64 130/51 07/16/17 08:00 97.9 64 20 130/51 95 Nasal Cannula 2.0 07/16/17 04:00 96.9 69 19 142/62 95 Nasal Cannula 2.0 07/16/17 04:00 53 07/16/17 00:00 61 07/16/17 00:00 98.6 71 18 144/66 97 Nasal Cannula 2.0 07/15/17 22:28 99 114/64 07/15/17 20:00 67 07/15/17 20:00 98.4 63 19 145/78 98 Nasal Cannula 2.0 07/15/17 19:10 98.0 07/15/17 19:05 Nasal Cannula 2.0 28 07/15/17 19:05 98 Nasal Cannula 2.0 28 07/15/17 16:00 61 07/15/17 12:00 98.0 65 19 113/75 100 Nasal Cannula 2.0 07/15/17 12:00 56 07/15/17 11:30 97 Nasal Cannula 2.0 28 07/15/17 11:30 Nasal Cannula 2.0 28 07/15/17 09:20 62 123/54 2/8/18 09:20 62 123/54 Intake and Output 07/15/17 07/16/17 19:00 07:00 Intake Total 415 ml Output Total 800 ml 400 ml Balance -385 ml -400 ml Intake Oral 360 ml IV Total 55 ml Output Urine Total 800 ml 400 ml # Bowel Movements 1 Height (Feet): 6 Height (Inches): 0.00 Weight (Pounds): 180 Objective General Appearance: no apparent distress, alert EENT: PERRL/EOMI, normal ENT inspection Neck: non-tender, normal alignment Cardiovascular: normal rate, regular rhythm Respiratory/Chest: decreased breath sounds Abdomen: tender Extremities: non-tender Edema: trace edema Neurologic: alert, oriented x 3 Skin: warm/dry BOB KENT Jul 16, 2017 09:14
--- NOTE | 2017-07-16 11:16 | Cardiac Electrophysiology PN ---
Assessment/Plan Assessment/Plan 1. Long runs of 21 beats of ventricular tachycardia. Ruled out for myocardial infarction. EF 55% Could be due to acute PE. Schedule Stress test. No further VT The patient denies any prior myocardial infarction with coronary artery disease 2. Lower extremity edema and congestive heart failure. BNP of 1800. EF55%. Lower extremity Doppler POSITIVE FOR dvt. 3. Pulmonary embolism on Lovenox and Coumadin.INR 2 today. 4. Hyperlipidemia, on Lipitor. 5. Hypertension, on Coreg 3.125 mg b.i.d. and Norvasc 5 mg daily. 6. History of hernia surgery. 7. History of trauma with sternum fracture. 8. Pneumonia, on antibiotics. DW RN Subjective Subjective On Coumadin.Remained in SR. No chest pain or SOB Objective Last 24 Hour Vital Signs Date Time Temp Pulse Resp B/P (MAP) Pulse Ox O2 Delivery O2 Flow Rate FiO2 07/16/17 08:50 64 130/51 07/16/17 08:45 64 130/51 07/16/17 08:00 97.9 64 20 130/51 95 Nasal Cannula 2.0 07/16/17 08:00 64 07/16/17 04:00 96.9 69 19 142/62 95 Nasal Cannula 2.0 07/16/17 04:00 53 07/16/17 00:00 61 07/16/17 00:00 98.6 71 18 144/66 97 Nasal Cannula 2.0 07/15/17 22:28 99 114/64 07/15/17 20:00 67 07/15/17 20:00 98.4 63 19 145/78 98 Nasal Cannula 2.0 07/15/17 19:10 98.0 07/15/17 19:05 Nasal Cannula 2.0 28 07/15/17 19:05 98 Nasal Cannula 2.0 28 07/15/17 16:00 61 07/15/17 12:00 98.0 65 19 113/75 100 Nasal Cannula 2.0 07/15/17 12:00 56 07/15/17 11:30 97 Nasal Cannula 2.0 28 07/15/17 11:30 Nasal Cannula 2.0 28 Intake and Output 07/15/17 07/16/17 19:00 07:00 Intake Total 415 ml Output Total 800 ml 400 ml Balance -385 ml -400 ml Intake Oral 360 ml IV Total 55 ml Output Urine Total 800 ml 400 ml # Bowel Movements 1 Laboratory Tests Test 07/16/17 10:00 Prothrombin Time 21.4 SEC (9.30-11.50) H Prothromb Time International Ratio 2.0 (0.9-1.1) H Objective HEAD AND NECK: no JVD. LUNGS: Clear. CARDIOVASCULAR: Regular S1 and S2 with no gallop or murmur. ABDOMEN: Soft and nontender. EXTREMITIES: Bilateral lower extremity edema. WALT SMITH Jul 16, 2017 11:16
[2017-07-16] MEDS ORDERED: Lexiscan 0.4mg/5ml syringe IV PRN (11:30)
--- NOTE | 2017-07-16 12:03 | Pulmonology Progress Note ---
Assessment/Plan Assessment/Plan pulmonary embolism and infarction no signs of pneumonia DVT VT recent L inguinal hernia repair INR therapeutic discontinue Lovenox per hematology reviewed cardiology notes cardiology eval underway agitated, wants to leave Subjective Respiratory: Denies: productive cough, shortness of breath Allergies: Coded Allergies: No Known Allergies (Unverified , 07/07/17) Objective Last 24 Hour Vital Signs Date Time Temp Pulse Resp B/P (MAP) Pulse Ox O2 Delivery O2 Flow Rate FiO2 07/16/17 11:48 97.5 56 20 131/63 96 Nasal Cannula 2.0 07/16/17 08:50 64 130/51 07/16/17 08:45 64 130/51 07/16/17 08:00 97.9 64 20 130/51 95 Nasal Cannula 2.0 07/16/17 08:00 64 07/16/17 04:00 96.9 69 19 142/62 95 Nasal Cannula 2.0 07/16/17 04:00 53 07/16/17 00:00 61 07/16/17 00:00 98.6 71 18 144/66 97 Nasal Cannula 2.0 07/15/17 22:28 99 114/64 07/15/17 20:00 67 07/15/17 20:00 98.4 63 19 145/78 98 Nasal Cannula 2.0 07/15/17 19:10 98.0 07/15/17 19:05 Nasal Cannula 2.0 28 07/15/17 19:05 98 Nasal Cannula 2.0 28 07/15/17 16:00 61 Intake and Output 07/15/17 07/16/17 19:00 07:00 Intake Total 415 ml Output Total 800 ml 400 ml Balance -385 ml -400 ml Intake Oral 360 ml IV Total 55 ml Output Urine Total 800 ml 400 ml # Bowel Movements 1 General Appearance: no acute distress HEENT: atraumatic Respiratory/Chest: lungs clear Cardiovascular: normal rate Extremities: other - + edema Laboratory Tests 07/16/17 10:00: Prothrombin Time 21.4H, Prothromb Time International Ratio 2.0H Current Medications Medications (Trade) Dose Ordered Sig/Tierney Route PRN Reason Start Time Stop Time Status Last Admin Dose Admin Acetaminophen/ Hydrocodone Bitart ([place] 10/325) 1 tab Q4H PRN ORAL Severe Pain (Pain Scale 7-10) 07/13/17 10:30 07/20/17 10:29 Amlodipine Besylate (Norvasc) 5 mg DAILY ORAL 07/08/17 09:00 08/07/17 08:59 07/16/17 08:50 Ascorbic Acid (Vitamin C) 250 mg TID ORAL 07/08/17 09:00 08/07/17 08:59 07/16/17 08:45 Aspirin (Ecotrin) 81 mg DAILY ORAL 07/08/17 09:00 08/07/17 08:59 07/16/17 08:45 Atorvastatin Calcium (Lipitor) 10 mg BEDTIME ORAL 07/08/17 21:00 08/07/17 20:59 07/15/17 22:27 Baclofen (Lioresal) 10 mg THREE TIMES A DAY PRN ORAL Muscle Spasm 07/08/17 07:45 08/07/17 07:44 Bisacodyl (Dulcolax) 5 mg DAILYPRN PRN ORAL Constipation 07/08/17 15:15 08/07/17 08:29 07/15/17 05:54 Carvedilol (Coreg) 3.125 mg EVERY 12 HOURS ORAL 07/08/17 09:00 08/07/17 08:59 07/16/17 08:45 Ceftriaxone Sodium 2 gm/ Sodium Chloride 55 ml @ 110 mls/hr Q24H IVPB 07/13/17 14:00 07/20/17 13:59 07/15/17 13:48 Docusate Sodium (Colace) 200 mg BIDPRN PRN ORAL Constipation 07/08/17 15:15 08/07/17 08:59 Enoxaparin Sodium (Lovenox) 80 mg Q12HR SUBQ 07/08/17 21:00 08/07/17 20:59 07/16/17 08:47 Ferrous Sulfate (Feosol) 325 mg THREE TIMES A DAY ORAL 07/14/17 09:00 08/13/17 08:59 07/16/17 08:45 Finasteride (Proscar) 5 mg DAILY ORAL 07/08/17 09:00 08/07/17 08:59 07/16/17 08:45 Gabapentin (Neurontin) 200 mg EVERY 8 HOURS ORAL 07/08/17 14:00 08/07/17 13:59 07/16/17 06:13 Haloperidol Lactate (Haldol) 5 mg Q6H PRN IM Agitation 07/14/17 23:00 08/13/17 22:59 Morphine Sulfate (Morphine Sulfate) 2 mg Q6H PRN IVP Severe Breakthru Pain (>7) 07/16/17 12:30 07/22/17 12:29 Naloxegol (Movantik) 12.5 mg DAILY ORAL 07/08/17 17:00 08/07/17 16:59 07/16/17 08:45 Nitroglycerin (Ntg) 0.4 mg NEEDED PRN SL Prn Chest Pain 07/08/17 08:00 08/07/17 07:59 Pantoprazole (Protonix) 40 mg ACBREAKFAST ORAL 07/08/17 08:30 08/07/17 08:29 07/16/17 06:13 Regadenoson (Lexiscan) 0.4 mg ONCE ONCE IV 07/16/17 11:30 07/16/17 11:31 UNV Risperidone (RisperDAL) 2 mg BEDTIME ORAL 07/09/17 21:00 08/08/17 20:59 07/15/17 22:27 Warfarin Sodium (Coumadin per pharmacy) 1 ea DAILY PRN MISC Per rx protocol 07/09/17 11:45 08/08/17 11:44 DONTE CARSON Jul 16, 2017 12:03
[2017-07-16] MEDS: cefTRIAXone 2 GM in NS 55 ML IVPB SCH (13:41)
[2017-07-16] MEDS: Morphine Sulfate 2mg/ml Inj IVP PRN ×2 (13:41→20:55)
--- NOTE | 2017-07-16 14:34 | Infectious Diseases Prog Note ---
Assessment/Plan Assessment/Plan A; Pulmonary emboli Intraabdominal seroma Bacteremia with Strep Pneumonia/ atelectasis Anemia DM type 2 DVT of left leg P; Continue Ceftriaxone Subjective ROS Limited/Unobtainable: Yes Allergies: Coded Allergies: No Known Allergies (Unverified , 07/07/17) Objective Vital Signs Last 24 Hour Vital Signs Date Time Temp Pulse Resp B/P (MAP) Pulse Ox O2 Delivery O2 Flow Rate FiO2 07/16/17 12:00 58 07/16/17 11:48 97.5 56 20 131/63 96 Nasal Cannula 2.0 07/16/17 08:50 64 130/51 07/16/17 08:45 64 130/51 07/16/17 08:00 97.9 64 20 130/51 95 Nasal Cannula 2.0 07/16/17 08:00 64 07/16/17 04:00 96.9 69 19 142/62 95 Nasal Cannula 2.0 07/16/17 04:00 53 07/16/17 00:00 61 07/16/17 00:00 98.6 71 18 144/66 97 Nasal Cannula 2.0 07/15/17 22:28 99 114/64 07/15/17 20:00 67 07/15/17 20:00 98.4 63 19 145/78 98 Nasal Cannula 2.0 07/15/17 19:10 98.0 07/15/17 19:05 Nasal Cannula 2.0 28 07/15/17 19:05 98 Nasal Cannula 2.0 28 07/15/17 16:00 61 Height (Feet): 6 Height (Inches): 0.00 Weight (Pounds): 180 General Appearance: no acute distress HEENT: mucous membranes moist Respiratory/Chest: lungs clear Cardiovascular: normal rate Abdomen: soft, non tender Extremities: other - mild edema of left leg Neurologic/Psychiatric: other - sleeping Laboratory Tests Test 07/16/17 10:00 Prothrombin Time 21.4 SEC (9.30-11.50) H Prothromb Time International Ratio 2.0 (0.9-1.1) H Current Medications Medications (Trade) Dose Ordered Sig/Tierney Route PRN Reason Start Time Stop Time Status Last Admin Dose Admin Acetaminophen/ Hydrocodone Bitart ([place] 10/325) 1 tab Q4H PRN ORAL Severe Pain (Pain Scale 7-10) 07/13/17 10:30 2/13/18 10:29 Amlodipine Besylate (Norvasc) 5 mg DAILY ORAL 07/08/17 09:00 08/07/17 08:59 07/16/17 08:50 Ascorbic Acid (Vitamin C) 250 mg TID ORAL 07/08/17 09:00 08/07/17 08:59 07/16/17 13:40 Aspirin (Ecotrin) 81 mg DAILY ORAL 07/08/17 09:00 08/07/17 08:59 07/16/17 08:45 Atorvastatin Calcium (Lipitor) 10 mg BEDTIME ORAL 07/08/17 21:00 08/07/17 20:59 07/15/17 22:27 Baclofen (Lioresal) 10 mg THREE TIMES A DAY PRN ORAL Muscle Spasm 07/08/17 07:45 08/07/17 07:44 Bisacodyl (Dulcolax) 5 mg DAILYPRN PRN ORAL Constipation 07/08/17 15:15 08/07/17 08:29 07/15/17 05:54 Carvedilol (Coreg) 3.125 mg EVERY 12 HOURS ORAL 07/08/17 09:00 08/07/17 08:59 07/16/17 08:45 Ceftriaxone Sodium 2 gm/ Sodium Chloride 55 ml @ 110 mls/hr Q24H IVPB 07/13/17 14:00 07/20/17 13:59 07/16/17 13:41 Docusate Sodium (Colace) 200 mg BIDPRN PRN ORAL Constipation 07/08/17 15:15 08/07/17 08:59 Enoxaparin Sodium (Lovenox) 80 mg Q12HR SUBQ 07/08/17 21:00 08/07/17 20:59 07/16/17 08:47 Ferrous Sulfate (Feosol) 325 mg THREE TIMES A DAY ORAL 07/14/17 09:00 08/13/17 08:59 07/16/17 13:37 Finasteride (Proscar) 5 mg DAILY ORAL 07/08/17 09:00 08/07/17 08:59 07/16/17 08:45 Gabapentin (Neurontin) 200 mg EVERY 8 HOURS ORAL 07/08/17 14:00 08/07/17 13:59 07/16/17 13:37 Haloperidol Lactate (Haldol) 5 mg Q6H PRN IM Agitation 07/14/17 23:00 08/13/17 22:59 Morphine Sulfate (Morphine Sulfate) 2 mg Q6H PRN IVP Severe Breakthru Pain (>7) 07/16/17 12:30 07/22/17 12:29 07/16/17 13:41 Naloxegol (Movantik) 12.5 mg DAILY ORAL 07/08/17 17:00 08/07/17 16:59 07/16/17 08:45 Nitroglycerin (Ntg) 0.4 mg NEEDED PRN SL Prn Chest Pain 07/08/17 08:00 08/07/17 07:59 Pantoprazole (Protonix) 40 mg ACBREAKFAST ORAL 07/08/17 08:30 08/07/17 08:29 07/16/17 06:13 Regadenoson (Lexiscan) 0.4 mg ONCE PRN IV CARDIAC STRESS TEST 07/16/17 11:30 07/17/17 11:29 Risperidone (RisperDAL) 2 mg BEDTIME ORAL 07/09/17 21:00 08/08/17 20:59 07/15/17 22:27 Warfarin Sodium (Coumadin per pharmacy) 1 ea DAILY PRN MISC Per rx protocol 07/09/17 11:45 08/08/17 11:44 JIN ABBASI Jul 16, 2017 14:34
--- NOTE | 2017-07-16 15:27 | General Progress Note ---
Assessment/Plan Assessment/Plan #. Pulmonary embolism. --> Patient was started on Lovenox and Coumadin ---> inr is 2, so lovenox d/jennifer --> INR goal is between 2.0 and 3.0, d/c once hgb >9 --> S/P venous duplex revealing acute occlusive thrombosis in genicular vein of right leg #. Anemia due to underlying iron deficiency. --> Anemia workup reviewed. --> Currently, no evidence of hemolysis. --> Creatinine is stable at this time. #. Thrombocytopenia, platelet count of 86,000, improved. --> Resolved. --> Continue to closely monitor. --> Consider human immunodeficiency and hepatitis panel if does not improve. #. Leukocytosis. --> Resolved. #. Pneumonia related to pneumonia infection contributing to leukocytosis. #. Chest pain. #. Abdominal pain. Subjective Constitutional: Denies: no symptoms, chills, diaphoresis, fever, malaise, weakness, other HEENT: Denies: no symptoms, eye pain, blurred vision, tearing, double vision, ear pain, ear discharge, nose pain, nose congestion, throat pain, throat swelling, mouth pain, mouth swelling, other Cardiovascular: Denies: no symptoms, chest pain, edema, irregular heart rate, lightheadedness, palpitations, syncope, other Respiratory: Denies: no symptoms, cough, orthopnea, shortness of breath, SOB with excertion, SOB at rest, sputum, stridor, wheezing, other Gastrointestinal/Abdominal: Denies: no symptoms, abdomen distended, abdominal pain, black stools, tarry stools, blood in stool, constipated, diarrhea, difficulty swallowing, nausea, poor appetite, poor fluid intake, rectal bleeding , vomiting, other Genitourinary: Denies: no symptoms, burning, discharge, frequency, flank pain, hematuria, incontinence, pain, urgency, other Endocrine: Denies: no symptoms, excessive sweating, flushing, intolerance to cold, intolerance to heat, increased hunger, increased thirst, increased urine, unexplained weight gain, unexplained weight loss, other Hematologic/Lymphatic: Denies: no symptoms, anemia, easy bleeding, easy bruising, other Allergies: Coded Allergies: No Known Allergies (Unverified , 07/07/17) Subjective Agitated and confused. lovenox stopped Objective Last 24 Hour Vital Signs Date Time Temp Pulse Resp B/P (MAP) Pulse Ox O2 Delivery O2 Flow Rate FiO2 07/16/17 14:44 97.5 07/16/17 12:00 58 07/16/17 11:48 97.5 56 20 131/63 96 Nasal Cannula 2.0 07/16/17 08:50 64 130/51 07/16/17 08:45 64 130/51 07/16/17 08:00 97.9 64 20 130/51 95 Nasal Cannula 2.0 07/16/17 08:00 64 07/16/17 04:00 96.9 69 19 142/62 95 Nasal Cannula 2.0 07/16/17 04:00 53 07/16/17 00:00 61 07/16/17 00:00 98.6 71 18 144/66 97 Nasal Cannula 2.0 07/15/17 22:28 99 114/64 07/15/17 20:00 67 07/15/17 20:00 98.4 63 19 145/78 98 Nasal Cannula 2.0 07/15/17 19:10 98.0 07/15/17 19:05 Nasal Cannula 2.0 28 07/15/17 19:05 98 Nasal Cannula 2.0 28 07/15/17 16:00 61 Intake and Output 07/15/17 07/16/17 19:00 07:00 Intake Total 415 ml Output Total 800 ml 400 ml Balance -385 ml -400 ml Intake Oral 360 ml IV Total 55 ml Output Urine Total 800 ml 400 ml # Bowel Movements 1 Laboratory Tests 07/16/17 10:00: Prothrombin Time 21.4H, Prothromb Time International Ratio 2.0H Height (Feet): 6 Height (Inches): 0.00 Weight (Pounds): 180 General Appearance: no apparent distress EENT: normal ENT inspection Neck: supple Cardiovascular: regular rhythm Respiratory/Chest: normal breath sounds Abdomen: non tender Extremities: non-tender Neurologic: alert Skin: warm/dry Michele Isabel Jul 16, 2017 15:27
[2017-07-16] MEDS ORDERED: Warfarin Sodium 4mg PO ONE (17:00)
[2017-07-16 17:19] LABS: BASOPHILS % (AUTO) 0.8 % (0.0-2.0); EOSINOPHILS % (AUTO) 4.5 % (0.0-3.0); HEMATOCRIT 28.6 % (42.0-52.0); LYMPHOCYTES % (AUTO) 29.8 % (20.0-45.0); MEAN CORPUSCULAR VOLUME 77 FL (80-99); MONOCYTES % (AUTO) 19.2 % (1.0-10.0); NEUTROPHILS % (AUTO) 45.7 % (45.0-75.0); PLATELET COUNT 310 K/UL (150-450); RED BLOOD COUNT 3.72 M/UL (4.70-6.10); RED CELL DISTRIBUTION WIDTH 16.3 % (11.6-14.8); WHITE BLOOD COUNT 4.5 K/UL (4.8-10.8)
--- NOTE | 2017-07-16 20:24 | General Progress Note ---
Assessment/Plan Problem List: (1) Pulmonary embolism ICD Codes: I26.99 - Other pulmonary embolism without acute cor pulmonale SNOMED: 93672445 (2) Pneumonia ICD Codes: J18.9 - Pneumonia, unspecified organism SNOMED: 211852550 (3) Anemia ICD Codes: D64.9 - Anemia, unspecified SNOMED: 810016683 (4) Abdominal pain ICD Codes: R10.9 - Unspecified abdominal pain SNOMED: 86271066 Qualifiers: Qualified Codes: R10.84 - Generalized abdominal pain (5) Thrombocytopenia ICD Codes: D69.6 - Thrombocytopenia, unspecified SNOMED: 241658980 Status: progressing Assessment/Plan pulmonary embolism waiting for therapeutic inr still subtherapeutic inr Subjective ROS Limited/Unobtainable: Yes Allergies: Coded Allergies: No Known Allergies (Unverified , 07/07/17) Subjective leg pain Objective Last 24 Hour Vital Signs Date Time Temp Pulse Resp B/P (MAP) Pulse Ox O2 Delivery O2 Flow Rate FiO2 07/16/17 20:00 97.0 59 16 122/59 96 07/16/17 16:00 59 07/16/17 16:00 97.6 60 19 147/64 96 Nasal Cannula 2.0 07/16/17 14:44 97.5 07/16/17 12:00 58 07/16/17 11:48 97.5 56 20 131/63 96 Nasal Cannula 2.0 07/16/17 08:50 64 130/51 07/16/17 08:45 64 130/51 07/16/17 08:00 97.9 64 20 130/51 95 Nasal Cannula 2.0 07/16/17 08:00 64 07/16/17 04:00 96.9 69 19 142/62 95 Nasal Cannula 2.0 07/16/17 04:00 53 07/16/17 00:00 61 07/16/17 00:00 98.6 71 18 144/66 97 Nasal Cannula 2.0 07/15/17 22:28 99 114/64 Intake and Output 07/15/17 07/16/17 19:00 07:00 Intake Total 415 ml Output Total 800 ml 400 ml Balance -385 ml -400 ml Intake Oral 360 ml IV Total 55 ml Output Urine Total 800 ml 400 ml # Bowel Movements 1 Laboratory Tests 07/16/17 10:00: Prothrombin Time 21.4H, Prothromb Time International Ratio 2.0H 07/16/17 16:20: White Blood Count 4.5L, Red Blood Count 3.72L, Hemoglobin 9.0L, Hematocrit 28.6L , Mean Corpuscular Volume 77L, Mean Corpuscular Hemoglobin 24.2L, Mean Corpuscular Hemoglobin Concent 31.6L, Red Cell Distribution Width 16.3H, Platelet Count 310, Mean Platelet Volume 6.9, Neutrophils (%) (Auto) 45.7, Lymphocytes (%) (Auto) 29.8, Monocytes (%) (Auto) 19.2H, Eosinophils (%) (Auto) 4.5H, Basophils (%) (Auto) 0.8 Height (Feet): 6 Height (Inches): 0.00 Weight (Pounds): 180 EENT: normal ENT inspection Respiratory/Chest: lungs clear Mariia Costello MD Jul 16, 2017 20:24
--- NOTE | 2017-07-17 | Progress Note ---
DATE: 07/16/2017 SUBJECTIVE: The patient was calm during the evaluation, however, did have episodes of agitation and attempts to leave. The patient is unable to understand, process, communicate, or appreciate the information given to him in regards to his medical condition. The patient lacks capacity. MENTAL STATUS EXAMINATION: The patient is alert and oriented times self and place. Mood is confused. Affect is constricted. Thought process, there is a paucity of thought content. Thought content, no suicidal or homicidal ideations. ASSESSMENT: Agitation. PLAN: We will continue the current medications. Chica Emanuel M.D. DR: UGO JOB#: [id number] CC:
[2017-07-17] MEDS: Morphine Sulfate 2mg/ml Inj IVP PRN ×3 (03:45→18:10)
[2017-07-17 04:00] VITALS: BP 142/59
[2017-07-17 08:00] VITALS: BP 158/78
[2017-07-17] MEDS: Naloxegol Oxalate 25mg tab ORAL SCH (08:42)
[2017-07-17] MEDS: Aspirin EC 81mg tab ORAL SCH (08:42)
[2017-07-17] MEDS: Ascorbic Acid 500mg tab ORAL SCH ×4 (08:43→17:44)
[2017-07-17 09:42] LABS: INR 1.8 (0.9-1.1)
[2017-07-17 09:57] LABS: BASOPHILS % (AUTO) 1.3 % (0.0-2.0); EOSINOPHILS % (AUTO) 4.4 % (0.0-3.0); HEMATOCRIT 30.8 % (42.0-52.0); HEMOGLOBIN 9.6 G/DL (14.2-18.0); LYMPHOCYTES % (AUTO) 35.5 % (20.0-45.0); MEAN CORPUSCULAR VOLUME 78 FL (80-99); MONOCYTES % (AUTO) 14.1 % (1.0-10.0); NEUTROPHILS % (AUTO) 44.7 % (45.0-75.0); PLATELET COUNT 212 K/UL (150-450); RED BLOOD COUNT 3.96 M/UL (4.70-6.10); RED CELL DISTRIBUTION WIDTH 16.8 % (11.6-14.8); WHITE BLOOD COUNT 4.5 K/UL (4.8-10.8)
[2017-07-17 10:41] LABS: ALANINE AMINOTRANSFERASE 33 U/L (12-78); ALBUMIN/GLOBULIN RATIO 0.5 (1.0-2.7); ALKALINE PHOSPHATASE 105 U/L (46-116); ANION GAP 4 mmol/L (5-15); ASPARTATE AMINO TRANSFERASE 51 U/L (15-37); BILIRUBIN,TOTAL 0.4 MG/DL (0.2-1.0); BLOOD UREA NITROGEN 7 mg/dL (7-18); CALCIUM 8.5 MG/DL (8.5-10.1); CARBON DIOXIDE 31 MMOL/L (21-32); CHLORIDE 105 MMOL/L (98-107); CREATININE 0.7 MG/DL (0.55-1.30); POTASSIUM 3.4 MMOL/L (3.5-5.1); SODIUM 140 MMOL/L (136-145)
--- NOTE | 2017-07-17 11:13 | Infectious Diseases Prog Note ---
Assessment/Plan Assessment/Plan antibiotics : ceftriaxone A 1. streptococcus sepsis 2. pneumonia 3. DVT 4. pulmonary embolism 5. 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 continue ceftriaxone 2. will follow up cultures Subjective ROS Limited/Unobtainable: Yes Allergies: Coded Allergies: No Known Allergies (Unverified , 07/07/17) Objective Vital Signs Last 24 Hour Vital Signs Date Time Temp Pulse Resp B/P (MAP) Pulse Ox O2 Delivery O2 Flow Rate FiO2 07/17/17 08:44 64 158/78 07/17/17 08:43 64 158/78 07/17/17 08:00 64 07/17/17 08:00 97.0 64 20 158/78 96 07/17/17 04:00 58 07/17/17 04:00 98.2 59 20 142/59 97 07/17/17 00:00 63 07/16/17 23:30 98.1 66 16 134/60 97 07/16/17 20:53 98 122/59 07/16/17 20:00 97.0 59 16 122/59 96 07/16/17 20:00 59 07/16/17 19:30 Nasal Cannula 2.0 28 07/16/17 19:30 98 Nasal Cannula 2.0 28 07/16/17 16:00 59 07/16/17 16:00 97.6 60 19 147/64 96 Nasal Cannula 2.0 07/16/17 14:44 97.5 07/16/17 12:00 58 07/16/17 11:48 97.5 56 20 131/63 96 Nasal Cannula 2.0 Height (Feet): 6 Height (Inches): 0.00 Weight (Pounds): 180 Respiratory/Chest: lungs clear Cardiovascular: normal rate, regular rhythm, no gallop/murmur Abdomen: soft, non tender Extremities: other - + edema bilaterally Laboratory Tests Test 07/16/17 16:20 07/17/17 07:55 White Blood Count 4.5 K/UL (4.8-10.8) L 4.5 K/UL (4.8-10.8) L Red Blood Count 3.72 M/UL (4.70-6.10) L 3.96 M/UL (4.70-6.10) L Hemoglobin 9.0 G/DL (14.2-18.0) L 9.6 G/DL (14.2-18.0) L Hematocrit 28.6 % (42.0-52.0) L 30.8 % (42.0-52.0) L Mean Corpuscular Volume 77 FL (80-99) L 78 FL (80-99) L Mean Corpuscular Hemoglobin 24.2 PG (27.0-31.0) L 24.2 PG (27.0-31.0) L Mean Corpuscular Hemoglobin Concent 31.6 G/DL (32.0-36.0) L 31.1 G/DL (32.0-36.0) L Red Cell Distribution Width 16.3 % (11.6-14.8) H 16.8 % (11.6-14.8) H Platelet Count 310 K/UL (150-450) 212 K/UL (150-450) Mean Platelet Volume 6.9 FL (6.5-10.1) 8.0 FL (6.5-10.1) Neutrophils (%) (Auto) 45.7 % (45.0-75.0) 44.7 % (45.0-75.0) L Lymphocytes (%) (Auto) 29.8 % (20.0-45.0) 35.5 % (20.0-45.0) Monocytes (%) (Auto) 19.2 % (1.0-10.0) H 14.1 % (1.0-10.0) H Eosinophils (%) (Auto) 4.5 % (0.0-3.0) H 4.4 % (0.0-3.0) H Basophils (%) (Auto) 0.8 % (0.0-2.0) 1.3 % (0.0-2.0) Prothrombin Time 19.4 SEC (9.30-11.50) H Prothromb Time International Ratio 1.8 (0.9-1.1) H Sodium Level 140 MMOL/L (136-145) Potassium Level 3.4 MMOL/L (3.5-5.1) L Chloride Level 105 MMOL/L (98-107) Carbon Dioxide Level 31 MMOL/L (21-32) Anion Gap 4 mmol/L (5-15) L Blood Urea Nitrogen 7 mg/dL (7-18) Creatinine 0.7 MG/DL (0.55-1.30) Estimat Glomerular Filtration Rate mL/min (>60) Glucose Level 94 MG/DL (74-106) Calcium Level 8.5 MG/DL (8.5-10.1) Total Bilirubin 0.4 MG/DL (0.2-1.0) Aspartate Amino Transf (AST/SGOT) 51 U/L (15-37) H Alanine Aminotransferase (ALT/SGPT) 33 U/L (12-78) Alkaline Phosphatase 105 U/L (46-116) Total Protein 6.1 G/DL (6.4-8.2) L Albumin 2.0 G/DL (3.4-5.0) L Globulin 4.1 g/dL Albumin/Globulin Ratio 0.5 (1.0-2.7) L JAMEY WOOD Jul 17, 2017 11:13
[2017-07-17 12:00] VITALS: BP 138/57
[2017-07-17 12:01] VITALS: BP 140/61
[2017-07-17] MEDS: cefTRIAXone 2 GM in NS 55 ML IVPB SCH (13:24)
--- NOTE | 2017-07-17 15:03 | General Progress Note ---
Assessment/Plan Problem List: (1) Pulmonary embolism ICD Codes: I26.99 - Other pulmonary embolism without acute cor pulmonale SNOMED: 30112836 (2) Pneumonia ICD Codes: J18.9 - Pneumonia, unspecified organism SNOMED: 942818251 (3) Anemia ICD Codes: D64.9 - Anemia, unspecified SNOMED: 098435150 (4) Abdominal pain ICD Codes: R10.9 - Unspecified abdominal pain SNOMED: 57398049 Qualifiers: Qualified Codes: R10.84 - Generalized abdominal pain (5) Thrombocytopenia ICD Codes: D69.6 - Thrombocytopenia, unspecified SNOMED: 240374921 Status: progressing Assessment/Plan pulmonary embolism moniter for bleeding check inr Subjective ROS Limited/Unobtainable: Yes Allergies: Coded Allergies: No Known Allergies (Unverified , 07/07/17) Subjective leg pain Objective Last 24 Hour Vital Signs Date Time Temp Pulse Resp B/P (MAP) Pulse Ox O2 Delivery O2 Flow Rate FiO2 07/17/17 12:01 97.9 58 20 140/61 95 Nasal Cannula 2.0 07/17/17 12:00 97.9 79 18 138/57 100 Room Air 07/17/17 12:00 55 07/17/17 11:58 97.0 07/17/17 08:44 64 158/78 07/17/17 08:43 64 158/78 07/17/17 08:00 64 07/17/17 08:00 97.0 64 20 158/78 96 07/17/17 04:00 58 07/17/17 04:00 98.2 59 20 142/59 97 07/17/17 00:00 63 07/16/17 23:30 98.1 66 16 134/60 97 07/16/17 20:53 98 122/59 07/16/17 20:00 97.0 59 16 122/59 96 07/16/17 20:00 59 07/16/17 19:30 Nasal Cannula 2.0 28 07/16/17 19:30 98 Nasal Cannula 2.0 28 07/16/17 16:00 59 07/16/17 16:00 97.6 60 19 147/64 96 Nasal Cannula 2.0 Intake and Output 07/16/17 07/17/17 19:00 07:00 Intake Total 755 ml Output Total 800 ml 500 ml Balance -45 ml -500 ml Intake Oral 700 ml IV Total 55 ml Output Urine Total 800 ml 500 ml Laboratory Tests 07/16/17 16:20: White Blood Count 4.5L, Red Blood Count 3.72L, Hemoglobin 9.0L, Hematocrit 28.6L , Mean Corpuscular Volume 77L, Mean Corpuscular Hemoglobin 24.2L, Mean Corpuscular Hemoglobin Concent 31.6L, Red Cell Distribution Width 16.3H, Platelet Count 310, Mean Platelet Volume 6.9, Neutrophils (%) (Auto) 45.7, Lymphocytes (%) (Auto) 29.8, Monocytes (%) (Auto) 19.2H, Eosinophils (%) (Auto) 4.5H, Basophils (%) (Auto) 0.8 07/17/17 07:55: White Blood Count 4.5L, Red Blood Count 3.96L, Hemoglobin 9.6L, Hematocrit 30.8L , Mean Corpuscular Volume 78L, Mean Corpuscular Hemoglobin 24.2L, Mean Corpuscular Hemoglobin Concent 31.1L, Red Cell Distribution Width 16.8H, Platelet Count 212, Mean Platelet Volume 8.0, Neutrophils (%) (Auto) 44.7L, Lymphocytes (%) (Auto) 35.5, Monocytes (%) (Auto) 14.1H, Eosinophils (%) (Auto) 4.4H, Basophils (%) (Auto) 1.3, Prothrombin Time 19.4H, Prothromb Time International Ratio 1.8H, Sodium Level 140, Potassium Level 3.4L, Chloride Level 105, Carbon Dioxide Level 31, Anion Gap 4L, Blood Urea Nitrogen 7, Creatinine 0.7, Estimat Glomerular Filtration Rate , Glucose Level 94, Calcium Level 8.5, Total Bilirubin 0.4, Aspartate Amino Transf (AST/SGOT) 51H, Alanine Aminotransferase (ALT/SGPT) 33, Alkaline Phosphatase 105, Total Protein 6.1L, Albumin 2.0L, Globulin 4.1, Albumin/Globulin Ratio 0.5L Height (Feet): 6 Height (Inches): 0.00 Weight (Pounds): 180 Respiratory/Chest: lungs clear Abdomen: soft Mariia Costello MD Jul 17, 2017 15:03
[2017-07-17 16:00] VITALS: BP 136/60
[2017-07-17] MEDS ORDERED: Tubing IV Secondary IV ONE (16:34)
--- NOTE | 2017-07-17 16:59 | Cardiac Electrophysiology PN ---
Assessment/Plan Assessment/Plan 1. Long runs of 21 beats of ventricular tachycardia. Ruled out for myocardial infarction. EF 55% Could be due to acute PE. Schedule Stress test on Wednesday. No further VT The patient denies any prior myocardial infarction with coronary artery disease 2. Lower extremity edema and congestive heart failure. BNP of 1800. EF55%. Lower extremity Doppler POSITIVE FOR dvt. 3. Pulmonary embolism on Coumadin.INR 1.8 today. 4. Hyperlipidemia, on Lipitor. 5. Hypertension, on Coreg 3.125 mg b.i.d. and Norvasc 5 mg daily. 6. History of hernia surgery. 7. History of trauma with sternum fracture. 8. Pneumonia, on antibiotics. 9. Noncompliance DW RN Subjective Subjective Remained in SR. No chest pain or SOB. Refuses gabapentin and Feso4 Objective Last 24 Hour Vital Signs Date Time Temp Pulse Resp B/P (MAP) Pulse Ox O2 Delivery O2 Flow Rate FiO2 07/17/17 16:00 97.7 59 20 136/60 96 Nasal Cannula 2.0 07/17/17 12:01 97.9 58 20 140/61 95 Nasal Cannula 2.0 07/17/17 12:00 97.9 79 18 138/57 100 Room Air 07/17/17 12:00 55 07/17/17 11:58 97.0 07/17/17 08:44 64 158/78 07/17/17 08:43 64 158/78 07/17/17 08:00 64 07/17/17 08:00 97.0 64 20 158/78 96 07/17/17 04:00 58 07/17/17 04:00 98.2 59 20 142/59 97 07/17/17 00:00 63 07/16/17 23:30 98.1 66 16 134/60 97 07/16/17 20:53 98 122/59 07/16/17 20:00 97.0 59 16 122/59 96 07/16/17 20:00 59 07/16/17 19:30 Nasal Cannula 2.0 28 07/16/17 19:30 98 Nasal Cannula 2.0 28 Intake and Output 07/16/17 07/17/17 19:00 07:00 Intake Total 755 ml Output Total 800 ml 500 ml Balance -45 ml -500 ml Intake Oral 700 ml IV Total 55 ml Output Urine Total 800 ml 500 ml Laboratory Tests Test 07/17/17 07:55 White Blood Count 4.5 K/UL (4.8-10.8) L Red Blood Count 3.96 M/UL (4.70-6.10) L Hemoglobin 9.6 G/DL (14.2-18.0) L Hematocrit 30.8 % (42.0-52.0) L Mean Corpuscular Volume 78 FL (80-99) L Mean Corpuscular Hemoglobin 24.2 PG (27.0-31.0) L Mean Corpuscular Hemoglobin Concent 31.1 G/DL (32.0-36.0) L Red Cell Distribution Width 16.8 % (11.6-14.8) H Platelet Count 212 K/UL (150-450) Mean Platelet Volume 8.0 FL (6.5-10.1) Neutrophils (%) (Auto) 44.7 % (45.0-75.0) L Lymphocytes (%) (Auto) 35.5 % (20.0-45.0) Monocytes (%) (Auto) 14.1 % (1.0-10.0) H Eosinophils (%) (Auto) 4.4 % (0.0-3.0) H Basophils (%) (Auto) 1.3 % (0.0-2.0) Prothrombin Time 19.4 SEC (9.30-11.50) H Prothromb Time International Ratio 1.8 (0.9-1.1) H Sodium Level 140 MMOL/L (136-145) Potassium Level 3.4 MMOL/L (3.5-5.1) L Chloride Level 105 MMOL/L (98-107) Carbon Dioxide Level 31 MMOL/L (21-32) Anion Gap 4 mmol/L (5-15) L Blood Urea Nitrogen 7 mg/dL (7-18) Creatinine 0.7 MG/DL (0.55-1.30) Estimat Glomerular Filtration Rate mL/min (>60) Glucose Level 94 MG/DL (74-106) Calcium Level 8.5 MG/DL (8.5-10.1) Total Bilirubin 0.4 MG/DL (0.2-1.0) Aspartate Amino Transf (AST/SGOT) 51 U/L (15-37) H Alanine Aminotransferase (ALT/SGPT) 33 U/L (12-78) Alkaline Phosphatase 105 U/L (46-116) Total Protein 6.1 G/DL (6.4-8.2) L Albumin 2.0 G/DL (3.4-5.0) L Globulin 4.1 g/dL Albumin/Globulin Ratio 0.5 (1.0-2.7) L Objective HEAD AND NECK: no JVD. LUNGS: Clear. CARDIOVASCULAR: Regular S1 and S2 with no gallop or murmur. ABDOMEN: Soft and nontender. EXTREMITIES: Bilateral lower extremity edema. WALT SMITH Jul 17, 2017 16:59
[2017-07-17] MEDS ORDERED: Warfarin Sodium 5mg ORAL ONE (17:00)
[2017-07-17] MEDS ORDERED: Warfarin Sodium 4mg PO ONE (17:00)
[2017-07-17 20:00] VITALS: BP 136/71
--- NOTE | 2017-07-17 22:49 | General Progress Note ---
Assessment/Plan Assessment/Plan #. Anemia due to underlying iron deficiency. --> Anemia workup reviewed. --> Currently, no evidence of hemolysis. --> Creatinine is stable at this time. --> Blood transfusion not required unless symptomatic or hgb <7#. Pulmonary embolism. --> Patient was started on Lovenox and Coumadin ---> inr is 2, so lovenox d/jennifer --> INR goal is between 2.0 and 3.0, d/c once hgb >9 --> S/P venous duplex revealing acute occlusive thrombosis in genicular vein of right leg #. Thrombocytopenia, platelet count of 86,000, improved. --> Resolved. --> Continue to closely monitor. --> Consider human immunodeficiency and hepatitis panel if does not improve. #. Leukocytosis. --> Resolved. #. Pneumonia related to pneumonia infection contributing to leukocytosis. #. Chest pain. #. Abdominal pain. Subjective Date patient seen: Jul 17, 2017 Constitutional: Denies: no symptoms, chills, diaphoresis, fever, malaise, weakness, other HEENT: Denies: no symptoms, eye pain, blurred vision, tearing, double vision, ear pain, ear discharge, nose pain, nose congestion, throat pain, throat swelling, mouth pain, mouth swelling, other Cardiovascular: Denies: no symptoms, chest pain, edema, irregular heart rate, lightheadedness, palpitations, syncope, other Respiratory: Denies: no symptoms, cough, orthopnea, shortness of breath, SOB with excertion, SOB at rest, sputum, stridor, wheezing, other Gastrointestinal/Abdominal: Denies: no symptoms, abdomen distended, abdominal pain, black stools, tarry stools, blood in stool, constipated, diarrhea, difficulty swallowing, nausea, poor appetite, poor fluid intake, rectal bleeding , vomiting, other Genitourinary: Denies: no symptoms, burning, discharge, frequency, flank pain, hematuria, incontinence, pain, urgency, other Hematologic/Lymphatic: Reports: anemia Allergies: Coded Allergies: No Known Allergies (Unverified , 07/07/17) Subjective Agitated and confused. Refusing some meds. Objective Last 24 Hour Vital Signs Date Time Temp Pulse Resp B/P (MAP) Pulse Ox O2 Delivery O2 Flow Rate FiO2 2/10/18 21:25 64 136/71 07/17/17 20:06 96 Nasal Cannula 2.0 28 07/17/17 20:06 Nasal Cannula 2.0 28 07/17/17 20:00 61 07/17/17 20:00 97.3 64 20 136/71 96 07/17/17 18:40 97.7 07/17/17 16:50 55 07/17/17 16:35 55 07/17/17 16:00 97.7 59 20 136/60 96 Nasal Cannula 2.0 07/17/17 12:01 97.9 58 20 140/61 95 Nasal Cannula 2.0 07/17/17 12:00 97.9 79 18 138/57 100 Room Air 07/17/17 12:00 55 07/17/17 08:44 64 158/78 07/17/17 08:43 64 158/78 07/17/17 08:00 64 07/17/17 08:00 97.0 64 20 158/78 96 07/17/17 04:00 58 07/17/17 04:00 98.2 59 20 142/59 97 07/17/17 00:00 63 07/16/17 23:30 98.1 66 16 134/60 97 Intake and Output 07/16/17 07/17/17 19:00 07:00 Intake Total 755 ml Output Total 800 ml 500 ml Balance -45 ml -500 ml Intake Oral 700 ml IV Total 55 ml Output Urine Total 800 ml 500 ml Laboratory Tests 07/17/17 07:55: White Blood Count 4.5L, Red Blood Count 3.96L, Hemoglobin 9.6L, Hematocrit 30.8L , Mean Corpuscular Volume 78L, Mean Corpuscular Hemoglobin 24.2L, Mean Corpuscular Hemoglobin Concent 31.1L, Red Cell Distribution Width 16.8H, Platelet Count 212, Mean Platelet Volume 8.0, Neutrophils (%) (Auto) 44.7L, Lymphocytes (%) (Auto) 35.5, Monocytes (%) (Auto) 14.1H, Eosinophils (%) (Auto) 4.4H, Basophils (%) (Auto) 1.3, Prothrombin Time 19.4H, Prothromb Time International Ratio 1.8H, Sodium Level 140, Potassium Level 3.4L, Chloride Level 105, Carbon Dioxide Level 31, Anion Gap 4L, Blood Urea Nitrogen 7, Creatinine 0.7, Estimat Glomerular Filtration Rate , Glucose Level 94, Calcium Level 8.5, Total Bilirubin 0.4, Aspartate Amino Transf (AST/SGOT) 51H, Alanine Aminotransferase (ALT/SGPT) 33, Alkaline Phosphatase 105, Total Protein 6.1L, Albumin 2.0L, Globulin 4.1, Albumin/Globulin Ratio 0.5L Height (Feet): 6 Height (Inches): 0.00 Weight (Pounds): 180 General Appearance: confused Respiratory/Chest: decreased breath sounds Michele Isabel Jul 17, 2017 22:49
[2017-07-18] VITALS: BP 136/64
[2017-07-18] MEDS: Morphine Sulfate 2mg/ml Inj IVP PRN ×4 (00:18→21:28)
[2017-07-18 04:00] VITALS: BP 130/56
[2017-07-18 08:00] VITALS: BP 143/61
[2017-07-18] MEDS: Naloxegol Oxalate 25mg tab ORAL SCH (08:46)
[2017-07-18] MEDS: Ascorbic Acid 500mg tab ORAL SCH ×3 (08:46→17:40)
[2017-07-18] MEDS: Aspirin EC 81mg tab ORAL SCH (08:46)
--- NOTE | 2017-07-18 09:01 | Infectious Diseases Prog Note ---
Assessment/Plan Assessment/Plan A; Pulmonary emboli Intraabdominal seroma Bacteremia with Strep Pneumonia/ atelectasis Anemia DM type 2 DVT of left leg P; Continue Ceftriaxone Subjective ROS Limited/Unobtainable: No Respiratory: Reports: productive cough Cardiovascular: Reports: no symptoms Gastrointestinal/Abdominal: Reports: no symptoms Genitourinary: Reports: no symptoms Allergies: Coded Allergies: No Known Allergies (Unverified , 07/07/17) Objective Vital Signs Last 24 Hour Vital Signs Date Time Temp Pulse Resp B/P (MAP) Pulse Ox O2 Delivery O2 Flow Rate FiO2 07/18/17 08:46 60 143/61 07/18/17 08:46 60 143/61 07/18/17 08:00 97.5 60 20 143/61 95 Nasal Cannula 2.0 07/18/17 04:00 59 07/18/17 04:00 97.5 59 20 130/56 93 Nasal Cannula 2.0 07/18/17 00:00 98.1 65 20 136/64 96 Nasal Cannula 2.0 07/17/17 21:25 64 136/71 07/17/17 20:06 96 Nasal Cannula 2.0 28 07/17/17 20:06 Nasal Cannula 2.0 28 07/17/17 20:00 61 07/17/17 20:00 97.3 64 20 136/71 96 07/17/17 18:40 97.7 07/17/17 16:50 55 07/17/17 16:35 55 07/17/17 16:00 97.7 59 20 136/60 96 Nasal Cannula 2.0 07/17/17 12:01 97.9 58 20 140/61 95 Nasal Cannula 2.0 07/17/17 12:00 97.9 79 18 138/57 100 Room Air 07/17/17 12:00 55 Height (Feet): 6 Height (Inches): 0.00 Weight (Pounds): 180 General Appearance: no acute distress HEENT: mucous membranes moist Respiratory/Chest: lungs clear Cardiovascular: normal rate Abdomen: soft, non tender Extremities: no edema Neurologic/Psychiatric: alert, oriented x 3, responsive Laboratory Tests Test 07/18/17 08:00 Prothrombin Time Pending Prothromb Time International Ratio Pending Current Medications Medications (Trade) Dose Ordered Sig/Tierney Route PRN Reason Start Time Stop Time Status Last Admin Dose Admin Acetaminophen/ Hydrocodone Bitart ([place] 10/325) 1 tab Q4H PRN ORAL Severe Pain (Pain Scale 7-10) 07/13/17 10:30 07/20/17 10:29 Amlodipine Besylate (Norvasc) 5 mg DAILY ORAL 07/08/17 09:00 08/07/17 08:59 07/18/17 08:46 Ascorbic Acid (Vitamin C) 250 mg TID ORAL 07/08/17 09:00 08/07/17 08:59 07/18/17 08:46 Aspirin (Ecotrin) 81 mg DAILY ORAL 07/08/17 09:00 08/07/17 08:59 07/18/17 08:46 Atorvastatin Calcium (Lipitor) 10 mg BEDTIME ORAL 07/08/17 21:00 08/07/17 20:59 07/17/17 21:25 Baclofen (Lioresal) 10 mg THREE TIMES A DAY PRN ORAL Muscle Spasm 07/08/17 07:45 08/07/17 07:44 Bisacodyl (Dulcolax) 5 mg DAILYPRN PRN ORAL Constipation 07/08/17 15:15 08/07/17 08:29 07/15/17 05:54 Carvedilol (Coreg) 3.125 mg EVERY 12 HOURS ORAL 07/08/17 09:00 08/07/17 08:59 07/18/17 08:46 Ceftriaxone Sodium 2 gm/ Sodium Chloride 55 ml @ 110 mls/hr Q24H IVPB 07/13/17 14:00 07/20/17 13:59 07/17/17 13:24 Docusate Sodium (Colace) 200 mg BIDPRN PRN ORAL Constipation 07/08/17 15:15 08/07/17 08:59 Ferrous Sulfate (Feosol) 325 mg THREE TIMES A DAY ORAL 07/14/17 09:00 08/13/17 08:59 07/18/17 08:46 Finasteride (Proscar) 5 mg DAILY ORAL 07/08/17 09:00 08/07/17 08:59 07/18/17 08:46 Gabapentin (Neurontin) 200 mg EVERY 8 HOURS ORAL 07/08/17 14:00 08/07/17 13:59 07/18/17 06:30 Haloperidol Lactate (Haldol) 5 mg Q6H PRN IM Agitation 07/14/17 23:00 08/13/17 22:59 Morphine Sulfate (Morphine Sulfate) 2 mg Q6H PRN IVP Severe Breakthru Pain (>7) 07/16/17 12:30 07/22/17 12:29 07/18/17 06:30 Naloxegol (Movantik) 12.5 mg DAILY ORAL 07/08/17 17:00 08/07/17 16:59 07/18/17 08:46 Nitroglycerin (Ntg) 0.4 mg NEEDED PRN SL Prn Chest Pain 07/08/17 08:00 08/07/17 07:59 Pantoprazole (Protonix) 40 mg ACBREAKFAST ORAL 07/08/17 08:30 08/07/17 08:29 07/18/17 06:30 Risperidone (RisperDAL) 2 mg BEDTIME ORAL 07/09/17 21:00 08/08/17 20:59 07/17/17 21:28 Warfarin Sodium (Coumadin per pharmacy) 1 ea DAILY PRN MISC Per rx protocol 07/09/17 11:45 08/08/17 11:44 JIN ABBASI Jul 18, 2017 09:01
[2017-07-18 09:13] LABS: INR 2.2 (0.9-1.1)
[2017-07-18 12:00] VITALS: BP 120/53
[2017-07-18] MEDS ORDERED: HYDROcodone/Acetamin 10/325 tab ORAL PRN (12:30)
--- NOTE | 2017-07-18 12:37 | General Progress Note ---
Assessment/Plan Assessment/Plan (1) Abdominal pain (2) Status post left inguinal herniorrhaphy (3) Atypical chest pain (4) Pneumonia (5) Pulmonary embolism Patient to be continued on [place] and Morphine as needed. D/w Dr. Melchor and he concurred. Subjective Date patient seen: Jul 18, 2017 Time patient seen: 10:30 Allergies: Coded Allergies: No Known Allergies (Unverified , 07/07/17) Subjective Constitutional: Reports: no symptoms HEENT: Reports: no symptoms Cardiovascular: Reports: chest pain Respiratory: Reports: shortness of breath Gastrointestinal/Abdominal: Reports: abdominal pain Genitourinary: Reports: burning Neurologic/Psychiatric: Reports: depressed Endocrine: Reports: no symptoms Hematologic/Lymphatic: Reports: no symptoms Subjective Patient is in bed and has tolerated his pain well on the morphine and [place]. He has no new complaints. Objective Last 24 Hour Vital Signs Date Time Temp Pulse Resp B/P (MAP) Pulse Ox O2 Delivery O2 Flow Rate FiO2 07/18/17 08:46 60 143/61 07/18/17 08:46 60 143/61 07/18/17 08:00 97.5 60 20 143/61 95 Nasal Cannula 2.0 07/18/17 08:00 64 07/18/17 04:00 59 07/18/17 04:00 97.5 59 20 130/56 93 Nasal Cannula 2.0 07/18/17 00:00 98.1 65 20 136/64 96 Nasal Cannula 2.0 07/17/17 21:25 64 136/71 07/17/17 20:06 96 Nasal Cannula 2.0 28 07/17/17 20:06 Nasal Cannula 2.0 28 07/17/17 20:00 61 07/17/17 20:00 97.3 64 20 136/71 96 07/17/17 18:40 97.7 07/17/17 16:50 55 07/17/17 16:35 55 07/17/17 16:00 97.7 59 20 136/60 96 Nasal Cannula 2.0 Intake and Output 07/17/17 07/18/17 19:00 07:00 Intake Total 415 ml Output Total 500 ml 400 ml Balance -85 ml -400 ml Intake Oral 360 ml IV Total 55 ml Output Urine Total 500 ml 400 ml Laboratory Tests 07/18/17 08:00: Prothrombin Time 23.0H, Prothromb Time International Ratio 2.2H Height (Feet): 6 Height (Inches): 0.00 Weight (Pounds): 180 Objective General Appearance: no apparent distress, alert EENT: PERRL/EOMI, normal ENT inspection Neck: non-tender, normal alignment Cardiovascular: normal rate, regular rhythm Respiratory/Chest: decreased breath sounds Abdomen: tender Extremities: non-tender Edema: trace edema Neurologic: alert, oriented x 3 Skin: warm/dry BOB KENT Jul 18, 2017 12:37
[2017-07-18] MEDS: cefTRIAXone 2 GM in NS 55 ML IVPB SCH (13:26)
[2017-07-18 16:00] VITALS: BP 124/54
[2017-07-18] MEDS ORDERED: Warfarin Sodium 7.5mg ORAL ONE (17:00)
--- NOTE | 2017-07-18 19:50 | General Progress Note ---
Assessment/Plan Problem List: (1) Pulmonary embolism ICD Codes: I26.99 - Other pulmonary embolism without acute cor pulmonale SNOMED: 22429086 (2) Pneumonia ICD Codes: J18.9 - Pneumonia, unspecified organism SNOMED: 621671895 (3) Anemia ICD Codes: D64.9 - Anemia, unspecified SNOMED: 760848356 (4) Abdominal pain ICD Codes: R10.9 - Unspecified abdominal pain SNOMED: 11383089 Qualifiers: Qualified Codes: R10.84 - Generalized abdominal pain (5) Thrombocytopenia ICD Codes: D69.6 - Thrombocytopenia, unspecified SNOMED: 620456275 Status: progressing Assessment/Plan pain improving afebrile no acute events dc in am most likely pulmonary embolism moniter for bleeding check inr Subjective ROS Limited/Unobtainable: Yes Constitutional: Reports: no symptoms Allergies: Coded Allergies: No Known Allergies (Unverified , 07/07/17) Subjective leg pain Objective Last 24 Hour Vital Signs Date Time Temp Pulse Resp B/P (MAP) Pulse Ox O2 Delivery O2 Flow Rate FiO2 07/18/17 16:00 52 07/18/17 16:00 97.2 53 20 124/54 97 Nasal Cannula 2.0 07/18/17 12:00 54 07/18/17 12:00 97.3 54 20 120/53 98 Nasal Cannula 2.0 07/18/17 08:46 60 143/61 07/18/17 08:46 60 143/61 07/18/17 08:00 97.5 60 20 143/61 95 Nasal Cannula 2.0 07/18/17 08:00 64 07/18/17 04:00 59 07/18/17 04:00 97.5 59 20 130/56 93 Nasal Cannula 2.0 07/18/17 00:00 98.1 65 20 136/64 96 Nasal Cannula 2.0 07/17/17 21:25 64 136/71 07/17/17 20:06 96 Nasal Cannula 2.0 28 07/17/17 20:06 Nasal Cannula 2.0 28 07/17/17 20:00 61 07/17/17 20:00 97.3 64 20 136/71 96 Intake and Output 07/17/17 07/18/17 19:00 07:00 Intake Total 415 ml Output Total 500 ml 400 ml Balance -85 ml -400 ml Intake Oral 360 ml IV Total 55 ml Output Urine Total 500 ml 400 ml Laboratory Tests 07/18/17 08:00: Prothrombin Time 23.0H, Prothromb Time International Ratio 2.2H Height (Feet): 6 Height (Inches): 0.00 Weight (Pounds): 180 Cardiovascular: normal rate Respiratory/Chest: lungs clear Mariia Costello MD Jul 18, 2017 19:49
[2017-07-18 20:00] VITALS: BP 144/85
--- NOTE | 2017-07-18 23:13 | General Progress Note ---
Assessment/Plan Assessment/Plan #. Anemia due to underlying iron deficiency. --> Anemia workup reviewed. --> Currently, no evidence of hemolysis. --> Creatinine is stable at this time. --> Blood transfusion not required unless symptomatic or hgb <7#. Pulmonary embolism. --> Patient was started on Lovenox and Coumadin ---> inr is 2, so lovenox d/jennifer --> INR goal is between 2.0 and 3.0, d/c once hgb >9 --> S/P venous duplex revealing acute occlusive thrombosis in genicular vein of right leg #. Thrombocytopenia, platelet count of 86,000, improved. --> Resolved. --> Continue to closely monitor. --> Consider human immunodeficiency and hepatitis panel if does not improve. #. Leukocytosis. --> Resolved. #. Pneumonia related to pneumonia infection contributing to leukocytosis. #. Chest pain. --> On morphine/norco. #. Abdominal pain. --> On morphine/norco. Subjective Date patient seen: Jul 18, 2017 Constitutional: Denies: no symptoms, chills, diaphoresis, fever, malaise, weakness, other HEENT: Denies: no symptoms, eye pain, blurred vision, tearing, double vision, ear pain, ear discharge, nose pain, nose congestion, throat pain, throat swelling, mouth pain, mouth swelling, other Cardiovascular: Denies: no symptoms, chest pain, edema, irregular heart rate, lightheadedness, palpitations, syncope, other Respiratory: Denies: no symptoms, cough, orthopnea, shortness of breath, SOB with excertion, SOB at rest, sputum, stridor, wheezing, other Gastrointestinal/Abdominal: Denies: no symptoms, abdomen distended, abdominal pain, black stools, tarry stools, blood in stool, constipated, diarrhea, difficulty swallowing, nausea, poor appetite, poor fluid intake, rectal bleeding , vomiting, other Genitourinary: Denies: no symptoms, burning, discharge, frequency, flank pain, hematuria, incontinence, pain, urgency, other Neurologic/Psychiatric: Denies: no symptoms, anxiety, depressed, emotional problems, headache, numbness, paresthesia, pre-existing deficit, seizure, tingling, tremors, weakness, other Hematologic/Lymphatic: Reports: anemia Allergies: Coded Allergies: No Known Allergies (Unverified , 07/07/17) Subjective Remains confused. Patient is on pain control - morphine and norco. Objective Last 24 Hour Vital Signs Date Time Temp Pulse Resp B/P (MAP) Pulse Ox O2 Delivery O2 Flow Rate FiO2 07/18/17 21:28 52 124/54 07/18/17 20:00 99.3 60 20 144/85 97 Nasal Cannula 2.0 07/18/17 20:00 55 07/18/17 19:30 Nasal Cannula 2.0 28 07/18/17 19:30 97 Nasal Cannula 2.0 28 07/18/17 16:00 52 07/18/17 16:00 97.2 53 20 124/54 97 Nasal Cannula 2.0 07/18/17 12:00 54 07/18/17 12:00 97.3 54 20 120/53 98 Nasal Cannula 2.0 07/18/17 08:46 60 143/61 07/18/17 08:46 60 143/61 07/18/17 08:00 97.5 60 20 143/61 95 Nasal Cannula 2.0 07/18/17 08:00 64 07/18/17 04:00 59 07/18/17 04:00 97.5 59 20 130/56 93 Nasal Cannula 2.0 07/18/17 00:00 98.1 65 20 136/64 96 Nasal Cannula 2.0 Intake and Output 07/17/17 07/18/17 18:59 06:59 Intake Total 415 ml Output Total 500 ml 400 ml Balance -85 ml -400 ml Intake Oral 360 ml IV Total 55 ml Output Urine Total 500 ml 400 ml Laboratory Tests 07/18/17 08:00: Prothrombin Time 23.0H, Prothromb Time International Ratio 2.2H Height (Feet): 6 Height (Inches): 0.00 Weight (Pounds): 180 General Appearance: confused, agitated Respiratory/Chest: decreased breath sounds Michele Isabel Jul 18, 2017 23:13
--- NOTE | 2017-07-18 23:31 | General Progress Note ---
Subjective Date patient seen: Jul 17, 2017 Neurologic/Psychiatric: Reports: anxiety, depressed, emotional problems Allergies: Coded Allergies: No Known Allergies (Unverified , 07/07/17) Objective Last 24 Hour Vital Signs Date Time Temp Pulse Resp B/P (MAP) Pulse Ox O2 Delivery O2 Flow Rate FiO2 07/18/17 21:28 52 124/54 07/18/17 20:00 99.3 60 20 144/85 97 Nasal Cannula 2.0 07/18/17 20:00 55 07/18/17 19:30 Nasal Cannula 2.0 28 07/18/17 19:30 97 Nasal Cannula 2.0 28 07/18/17 16:00 52 07/18/17 16:00 97.2 53 20 124/54 97 Nasal Cannula 2.0 07/18/17 12:00 54 07/18/17 12:00 97.3 54 20 120/53 98 Nasal Cannula 2.0 07/18/17 08:46 60 143/61 07/18/17 08:46 60 143/61 07/18/17 08:00 97.5 60 20 143/61 95 Nasal Cannula 2.0 07/18/17 08:00 64 07/18/17 04:00 59 07/18/17 04:00 97.5 59 20 130/56 93 Nasal Cannula 2.0 07/18/17 00:00 98.1 65 20 136/64 96 Nasal Cannula 2.0 Intake and Output 07/17/17 07/18/17 18:59 06:59 Intake Total 415 ml Output Total 500 ml 400 ml Balance -85 ml -400 ml Intake Oral 360 ml IV Total 55 ml Output Urine Total 500 ml 400 ml Laboratory Tests 07/18/17 08:00: Prothrombin Time 23.0H, Prothromb Time International Ratio 2.2H Height (Feet): 6 Height (Inches): 0.00 Weight (Pounds): 180 General Appearance: no apparent distress, alert, agitated Chica Emanuel M.D. Jul 18, 2017 23:31
--- NOTE | 2017-07-18 23:32 | General Progress Note ---
Assessment/Plan Status: not improved, unchanged Subjective Date patient seen: Jul 18, 2017 Neurologic/Psychiatric: Reports: anxiety, depressed, emotional problems Allergies: Coded Allergies: No Known Allergies (Unverified , 07/07/17) Objective Last 24 Hour Vital Signs Date Time Temp Pulse Resp B/P (MAP) Pulse Ox O2 Delivery O2 Flow Rate FiO2 07/18/17 21:28 52 124/54 07/18/17 20:00 99.3 60 20 144/85 97 Nasal Cannula 2.0 07/18/17 20:00 55 07/18/17 19:30 Nasal Cannula 2.0 28 07/18/17 19:30 97 Nasal Cannula 2.0 28 07/18/17 16:00 52 07/18/17 16:00 97.2 53 20 124/54 97 Nasal Cannula 2.0 07/18/17 12:00 54 07/18/17 12:00 97.3 54 20 120/53 98 Nasal Cannula 2.0 07/18/17 08:46 60 143/61 07/18/17 08:46 60 143/61 07/18/17 08:00 97.5 60 20 143/61 95 Nasal Cannula 2.0 07/18/17 08:00 64 07/18/17 04:00 59 07/18/17 04:00 97.5 59 20 130/56 93 Nasal Cannula 2.0 07/18/17 00:00 98.1 65 20 136/64 96 Nasal Cannula 2.0 Intake and Output 07/17/17 07/18/17 18:59 06:59 Intake Total 415 ml Output Total 500 ml 400 ml Balance -85 ml -400 ml Intake Oral 360 ml IV Total 55 ml Output Urine Total 500 ml 400 ml Laboratory Tests 07/18/17 08:00: Prothrombin Time 23.0H, Prothromb Time International Ratio 2.2H Height (Feet): 6 Height (Inches): 0.00 Weight (Pounds): 180 General Appearance: no apparent distress, alert, confused, agitated Chica Emanuel M.D. Jul 18, 2017 23:32
[2017-07-19] VITALS: BP 141/62
[2017-07-19] MEDS: Morphine Sulfate 2mg/ml Inj IVP PRN ×2 (03:50→11:42)
[2017-07-19 04:00] VITALS: BP 144/63
[2017-07-19 08:00] VITALS: BP 142/67
--- NOTE | 2017-07-19 08:43 | General Progress Note ---
Assessment/Plan Assessment/Plan (1) Abdominal pain (2) Status post left inguinal herniorrhaphy (3) Atypical chest pain (4) Pneumonia (5) Pulmonary embolism Patient to be continued on [place] and Morphine as needed. D/w Dr. Melchor and he concurred. Subjective Date patient seen: Jul 19, 2017 Time patient seen: 07:15 - am Allergies: Coded Allergies: No Known Allergies (Unverified , 07/07/17) Subjective Constitutional: Reports: no symptoms HEENT: Reports: no symptoms Cardiovascular: Reports: chest pain Respiratory: Reports: shortness of breath Gastrointestinal/Abdominal: Reports: abdominal pain Genitourinary: Reports: burning Neurologic/Psychiatric: Reports: depressed Endocrine: Reports: no symptoms Hematologic/Lymphatic: Reports: no symptoms Subjective Patient has been in bed no signs of pain or distress continues to have morphine and [place] as needed. Objective Last 24 Hour Vital Signs Date Time Temp Pulse Resp B/P (MAP) Pulse Ox O2 Delivery O2 Flow Rate FiO2 07/19/17 07:08 97 Nasal Cannula 2.0 28 07/19/17 07:08 Nasal Cannula 2.0 28 07/19/17 04:00 52 07/19/17 04:00 97.9 58 20 144/63 96 Nasal Cannula 2.0 07/19/17 00:00 61 07/19/17 00:00 97.7 84 20 141/62 96 Nasal Cannula 2.0 07/18/17 21:28 52 124/54 07/18/17 20:00 99.3 60 20 144/85 97 Nasal Cannula 2.0 07/18/17 20:00 55 07/18/17 19:30 Nasal Cannula 2.0 28 07/18/17 19:30 97 Nasal Cannula 2.0 28 07/18/17 16:00 52 07/18/17 16:00 97.2 53 20 124/54 97 Nasal Cannula 2.0 07/18/17 12:00 54 07/18/17 12:00 97.3 54 20 120/53 98 Nasal Cannula 2.0 07/18/17 08:46 60 143/61 07/18/17 08:46 60 143/61 Intake and Output 07/18/17 07/19/17 19:00 07:00 Intake Total 415 ml Output Total 700 ml 400 ml Balance -285 ml -400 ml Intake Oral 360 ml IV Total 55 ml Output Urine Total 700 ml 400 ml Height (Feet): 6 Height (Inches): 0.00 Weight (Pounds): 180 Objective General Appearance: no apparent distress, alert EENT: PERRL/EOMI, normal ENT inspection Neck: non-tender, normal alignment Cardiovascular: normal rate, regular rhythm Respiratory/Chest: decreased breath sounds Abdomen: tender Extremities: non-tender Edema: trace edema Neurologic: alert, oriented x 3 Skin: warm/dry BOB KENT PZach Jul 19, 2017 08:43
[2017-07-19 09:00] VITALS: BP 142/67
[2017-07-19] MEDS: Ascorbic Acid 500mg tab ORAL SCH ×2 (09:52→13:28)
[2017-07-19] MEDS: Aspirin EC 81mg tab ORAL SCH (09:52)
[2017-07-19] MEDS: Naloxegol Oxalate 25mg tab ORAL SCH (09:52)
[2017-07-19] MEDS ORDERED: COUMADIN1 MG ORAL (10:24)
--- NOTE | 2017-07-19 11:10 | Cardiac Electrophysiology PN ---
Assessment/Plan Assessment/Plan 1. Long runs of 21 beats of ventricular tachycardia. Ruled out for myocardial infarction. EF 55% Could be due to acute PE. Patient refused Stress test today. No further VT The patient denies any prior myocardial infarction with coronary artery disease 2. Lower extremity edema and congestive heart failure. BNP of 1800. EF55%. Lower extremity Doppler + FOR dvt. 3. Pulmonary embolism on Coumadin.INR 2.2 4. Hyperlipidemia, on Lipitor. 5. Hypertension, on Coreg 3.125 mg b.i.d. and Norvasc 5 mg daily. 6. History of hernia surgery. 7. History of trauma with sternum fracture. 8. Pneumonia, on antibiotics. 9. Noncompliance DW RN Subjective Subjective Remained in SR. No chest pain or SOB. Refused stress test today Objective Last 24 Hour Vital Signs Date Time Temp Pulse Resp B/P (MAP) Pulse Ox O2 Delivery O2 Flow Rate FiO2 07/19/17 09:00 58 142/67 07/19/17 09:00 58 142/67 07/19/17 08:00 56 07/19/17 08:00 97.9 58 20 142/67 99 Nasal Cannula 2.0 07/19/17 07:08 97 Nasal Cannula 2.0 28 07/19/17 07:08 Nasal Cannula 2.0 28 07/19/17 04:00 52 07/19/17 04:00 97.9 58 20 144/63 96 Nasal Cannula 2.0 07/19/17 00:00 61 07/19/17 00:00 97.7 84 20 141/62 96 Nasal Cannula 2.0 07/18/17 21:28 52 124/54 07/18/17 20:00 99.3 60 20 144/85 97 Nasal Cannula 2.0 07/18/17 20:00 55 07/18/17 19:30 Nasal Cannula 2.0 28 07/18/17 19:30 97 Nasal Cannula 2.0 28 07/18/17 16:00 52 07/18/17 16:00 97.2 53 20 124/54 97 Nasal Cannula 2.0 07/18/17 12:00 54 07/18/17 12:00 97.3 54 20 120/53 98 Nasal Cannula 2.0 Intake and Output 07/18/17 07/19/17 19:00 07:00 Intake Total 415 ml Output Total 700 ml 400 ml Balance -285 ml -400 ml Intake Oral 360 ml IV Total 55 ml Output Urine Total 700 ml 400 ml Objective HEAD AND NECK: no JVD. LUNGS: Clear. CARDIOVASCULAR: Regular S1 and S2 with no gallop or murmur. ABDOMEN: Soft and nontender. EXTREMITIES: Bilateral lower extremity edema. WALT SMITH Jul 19, 2017 11:10
[2017-07-19 12:10] LABS: INR 2.9 (0.9-1.1)
[2017-07-19] MEDS: cefTRIAXone 2 GM in NS 55 ML IVPB SCH (13:28)
[2017-07-19] MEDS ORDERED: Warfarin Sodium 5mg ORAL ONE (17:00)
--- NOTE | 2017-07-19 21:15 | Progress Note ---
DATE: 07/19/2017 SUBJECTIVE: The patient is still confused, however, calm and no agitation, however, he is refusing to have the test. The patient is unable to make a decision as he lacks capacity. MENTAL STATUS EXAMINATION: The patient is alert and oriented times self and place. Mood is irritable and angry. Affect is constricted. Congruent with mood. Thought process is concrete. Thought content, no suicidal or homicidal ideation. ASSESSMENT: 1. Dementia. 2. Agitation. 3. The patient lacks capacity, should be discharged when medically cleared. PLAN: 1. We will continue the current medication. 2. Provide the patient with reality orientation. 3. Continue medications. Chica Emanuel M.D. DR: JULIO C JOB#: [id number] CC:
--- NOTE | 2017-07-19 23:42 | General Progress Note ---
Assessment/Plan Assessment/Plan #. Pulmonary embolism. --> Patient was started on Lovenox and Coumadin ---> inr is 2, so lovenox d/jennifer --> INR goal is between 2.0 and 3.0, d/c once hgb >9 --> Hgb >9, okay to dc. --> S/P venous duplex revealing acute occlusive thrombosis in genicular vein of right leg #. Anemia due to underlying iron deficiency. --> Anemia workup reviewed. --> Currently, no evidence of hemolysis. --> Creatinine is stable at this time. --> Blood transfusion not required unless symptomatic or hgb <7 #. Thrombocytopenia, platelet count of 86,000, improved. --> Resolved. --> Continue to closely monitor. --> Consider human immunodeficiency and hepatitis panel if does not improve. #. Leukocytosis. --> Resolved. #. Pneumonia related to pneumonia infection contributing to leukocytosis. #. Chest pain. --> On morphine/norco. #. Abdominal pain. --> On morphine/norco. Subjective Date patient seen: Jul 19, 2017 Constitutional: Denies: no symptoms, chills, diaphoresis, fever, malaise, weakness, other HEENT: Denies: no symptoms, eye pain, blurred vision, tearing, double vision, ear pain, ear discharge, nose pain, nose congestion, throat pain, throat swelling, mouth pain, mouth swelling, other Cardiovascular: Denies: no symptoms, chest pain, edema, irregular heart rate, lightheadedness, palpitations, syncope, other Respiratory: Denies: no symptoms, cough, orthopnea, shortness of breath, SOB with excertion, SOB at rest, sputum, stridor, wheezing, other Gastrointestinal/Abdominal: Denies: no symptoms, abdomen distended, abdominal pain, black stools, tarry stools, blood in stool, constipated, diarrhea, difficulty swallowing, nausea, poor appetite, poor fluid intake, rectal bleeding , vomiting, other Genitourinary: Denies: no symptoms, burning, discharge, frequency, flank pain, hematuria, incontinence, pain, urgency, other Allergies: Coded Allergies: No Known Allergies (Unverified , 07/07/17) Subjective Patient on pain control. No acute events. Pending discharge. Objective Last 24 Hour Vital Signs Date Time Temp Pulse Resp B/P (MAP) Pulse Ox O2 Delivery O2 Flow Rate FiO2 07/19/17 09:00 58 142/67 07/19/17 09:00 58 142/67 07/19/17 08:00 56 07/19/17 08:00 97.9 58 20 142/67 99 Nasal Cannula 2.0 07/19/17 07:08 97 Nasal Cannula 2.0 28 07/19/17 07:08 Nasal Cannula 2.0 28 07/19/17 04:00 52 07/19/17 04:00 97.9 58 20 144/63 96 Nasal Cannula 2.0 07/19/17 00:00 61 07/19/17 00:00 97.7 84 20 141/62 96 Nasal Cannula 2.0 Intake and Output 07/18/17 07/19/17 19:00 07:00 Intake Total 415 ml Output Total 700 ml 400 ml Balance -285 ml -400 ml Intake Oral 360 ml IV Total 55 ml Output Urine Total 700 ml 400 ml Laboratory Tests 07/19/17 11:30: Prothrombin Time 30.8H, Prothromb Time International Ratio 2.9H Height (Feet): 6 Height (Inches): 0.00 Weight (Pounds): 180 General Appearance: lethargic, confused Respiratory/Chest: decreased breath sounds Michele Isabel Jul 19, 2017 23:42
--- NOTE | 2017-07-20 06:15 | History and Physical Report ---
DATE OF ADMISSION: 07/08/2017 NOTE: POOR AUDIO HISTORY OF PRESENT ILLNESS: The patient came in shortness of breath diagnosed with pulmonary embolism and is admitted for pulmonary embolism. The patient has complained of shortness of breath. The patient also is admitted for anemia and for anticoagulation as well as borderline troponin and borderline potassium. The patient Dr. Heard, Dr. Melchor, Dr. Emanuel, Dr. Isabel, and Dr. Eloy Winston for rule out bronchitis, rule out UTI as well as pulmonary embolism. FAMILY HISTORY: Noncontributory. SOCIAL HISTORY: No history of alcohol or illicit drugs. Resident of jail. REVIEW OF SYSTEMS: HEENT: Denies headaches. RESPIRATORY: Reports shortness of breath and cough. CARDIOVASCULAR: He does have chest pain . GASTROINTESTINAL: Denies nausea, vomiting, or diarrhea. EXTREMITIES: Denies any lower extremity pain. CENTRAL NERVOUS SYSTEM: No change in vision or speech pattern. PHYSICAL EXAMINATION: VITAL SIGNS: Temperature is 97.7 degrees, pulse 84, and blood pressure 141/62. HEENT: PERRLA. NECK: Supple. No lymphadenopathy. CHEST: Clear to auscultation. GASTROINTESTINAL: Soft, nontender, and nondistended. No organomegaly. EXTREMITIES: No edema. Moves all four extremities. NEUROLOGIC: Reflexes equal on both sides. Moves all four extremities. LABORATORY DATA: Sodium 138, potassium 3.7, BUN of 6, and creatinine 0.7. Troponin 0.17. WBC of 9, hemoglobin 9.1, and platelets 235. ASSESSMENT AND PLAN: Pulmonary embolism, atypical chest pain, rule out . Anemia. I have asked Dr. Heard, Dr. Melchor, Dr. Emanuel, Dr. Isabel, and Dr. Bong Jerry to see the patient for the above-mentioned diagnoses and treatment. Mariia Costello M.D. DR: RYAN JOB#: [id number] CC:
--- NOTE | 2017-07-21 09:40 | Discharge Summary ---
Discharge Summary Hospital Course Date of Admission Jul 08, 2017 at 00:17 Date of Discharge Jul 19, 2017 at 14:30 Admitting Diagnosis fever/abd pain ANDRES Smith is a 87 year old male who was admitted on Jul 08, 2017 at 00:17 for Fever/Abdominal Pain Hospital Course dc summary #[id number] Discharge Medications Continued Medications: Amlodipine Besylate* (Amlodipine Besylate*) 5 Mg Tablet 5 MG ORAL DAILY, TAB Ascorbic Acid* (Vitamin C*) 250 Mg Tablet 250 MG ORAL THREE TIMES A DAY, #30 TAB 0 Refills Aspirin* (Aspir 81*) 81 Mg Tablet.dr 81 MG ORAL DAILY, TAB Baclofen* (Baclofen*) 10 Mg Tablet 10 MG ORAL THREE TIMES A DAY, TAB Bisacodyl* (Dulcolax*) 5 Mg Tablet.dr 5 MG ORAL DAILY PRN for Constipation, #10 TAB 0 Refills Carvedilol* (Carvedilol*) 3.125 Mg Tablet 3.125 MG ORAL EVERY 12 HOURS, TAB Docusate Sodium* (Docusate Sodium*) 100 Mg Capsule 200 MG ORAL TWICE A DAY, CAP Dutasteride (Avodart) 0.5 Mg Capsule 0.5 MG ORAL DAILY, CAP Ferrous Sulfate* (Ferrous Sulfate*) 325 Mg Tablet 325 MG ORAL THREE TIMES A DAY, #90 TAB 0 Refills Gabapentin* (Gabapentin*) 100 Mg Capsule 200 MG ORAL EVERY 8 HOURS, CAP Hydrocodone Bit/Acetaminophen 5-325* (Narka 5-325*) 1 Each Tablet 2 TAB ORAL Q6H PRN for For Pain, #10 TAB 0 Refills Nitroglycerin (Nitroglycerin) 0.4 Mg Tab.subl 0.4 MG SL, TAB Omeprazole (Omeprazole) 20 Mg Capsule.dr 20 MG ORAL DAILY, CAP Simvastatin (Zocor) 20 Mg Tablet 20 MG ORAL BEDTIME, TAB Warfarin Sod* (Coumadin*) 1 Mg Tablet 5.5 MG ORAL DAILY, TAB Discharge Condition Upon Discharge: stable Discharge Disposition Patient was discharged to [facility] (04) Discharge Diagnoses: Discharge Instructions Discharge Instructions Special Instructions I have been assigned to complete a D/C Summary on this account. I was not involved in the patient management Ann Orlando NP (Vanchtein) Jul 21, 2017 09:40
--- NOTE | 2017-07-21 22:30 | Discharge Summary 2 SIG ---
DATE OF ADMISSION: 07/08/2017 DATE OF DISCHARGE: 07/19/2017 REASON FOR ADMISSION: 87-year-old male with history of hypertension, diabetes, and recent left inguinal hernia repair, secondary to incarceration, presented to emergency department from [facility] facility where he resides, with fever, chills, shortness of breath, and abdominal pain. The patient reported abdominal pain for one week. He had some nausea and vomiting. He pointed to the right lower abdomen. Pain was sharp and intermittent. No diarrhea. No constipation. In the emergency department, the patient was afebrile, saturated 95% on two liters nasal cannula, and bradycardic -54. EKG showed sinus bradycardia. No acute ischemic changes. Chest x-ray revealed probable right lower lobe infiltrate. Blood pressure stable -123/69. No leukocytosis. Hemoglobin -9.1 and hematocrit- 28. ProBNP -1806. Troponin negative. Platelets- 86,000. Urinalysis revealed pyuria , +1 protein, but only occasional bacteria. Abdominal and pelvis CT revealed evidence of recent left inguinal hernia repair and fluid collection in the left lower quadrant containing a small amount of gas probably representing postoperative abscess versus seroma. Prominent fecal burden, possibly fecal impaction. Prominent and fluid-filled small and large bowel loops without evidence of obstruction, possibly postoperative ileus, enteritis, or diarrheal illness not excluded. The patient was admitted with diagnoses of pneumonia and abdominal pain. CONSULTANTS: 1. Cardiology, Dr. Kaushik Heard. 2. Pulmonology, Dr. Diego Richmond. 3. Tugger Operator/oncologist, Dr. Michele Isabel. 4. Infectious Disease, Dr. Eloy Jones. 5. Pain specialist, Dr. Rochelle Melchor. 6. Surgeon, Dr. Abhay Thomson. HOSPITAL COURSE: The patient was admitted. The patient was started on empiric antibiotics. ID followed. Sputum culture was negative. Blood culture showed strep alpha hemolytic one out of four. Rapid influenza screen test was negative. No evidence of vegetation on ECHO. Per Infectious Disease specialist, the patient was on IV antibiotics. Supplemental oxygen and pulmonary toilet provided as needed. Venous duplex of bilateral lower extremity revealed acute DVT of right lower extremity genicular vein. CT of the chest revealed evidence of pulmonary emboli along with the finding of right basilar consolidation suspicious for pneumonia versus pulmonary infarct, small right pleural effusion, mild emphysema, and pathological fracture of lower sternum. The patient was started on anticoagulation with Lovenox and Coumadin to bridge to the therapeutic INR. Tugger Operator closely followed. INR above 2. Lovenox was discontinued. The patient was discharged on Coumadin to [facility] facility to keep INR in therapeutic range 2 to 3. Pulse oximetry was stable on two liters of nasal cannula. Steam Shovel Engineer closely followed. Troponin x4 were negative. The patient declined stress test. The echocardiogram revealed preserved ejection fraction of 55% to 60% with right ventricular systolic pressure of 25. The patient was ruled out for acute IL with serial negative troponin and EKG, which revealed no acute ischemic changes. Patient did exhibit evidence of long run ventricular tachycardia of run of 21 on the telemetry. Long run of ventricular tachycardia may be possibly secondary to acute PE as per personal care aid. The patient was on statin. Blood sugar was managed with sliding scale of insulin. Pain management provided. Pain specialist followed. Psychiatrist seen and evaluated the patient and optimized psychiatric medication regimen. Surgeon seen the patient for findings of the CT of the abdomen of seroma versus abscess. Exam was benign. Surgeon concluded that it was a postoperative seroma and no acute surgical intervention was necessary. Hartly were removed at the bedside. Hemoglobin and hematocrit were closely monitored. Anemia workup was consistent with anemia of iron deficiency. No need for transfusion. Hemoglobin- 9.6 and hematocrit -30.8 prior to discharge. The patient received IV Venofer.The patient initially with thrombocytopenia with platelets of 86,000, the next day thrombocytopenia resolved. Prior to discharge, platelets- 212, 000. Tugger Operator recommended if in the future thrombocytopenia develop again , to consider checking HIV panel and hepatitis panel. Bowel regimen instituted. Abdominal pain resolved, most likely secondary to constipation. The patient was stable for discharge back to [facility] facility. FINAL DIAGNOSES: 1. Bacteremia with Streptococci. 2. Possible pneumonia 3. Acute pulmonary embolism and infarction. 4. Acute deep venous thrombosis of right lower extremity. 5. Anemia of iron deficiency. 6. Nonsustained ventricular tachycardia (long run of 21, probably secondary to acute pulmonary embolism). 7. Abdominal seroma. 8. History of recent left inguinal hernia repair due to incarceration. 9. Diabetes mellitus type 2. 10. Congestive heart failure. 11. Hyperlipidemia. 12. Thrombocytopenia. 13. Anemia of iron deficiency. 14. Abdominal pain likely due to constipation, resolved. 15. Sternal fracture. 16. Noncompliance. 17. Encephalopathy. 18. Schizophrenia. DISCHARGE MEDICATIONS: See medication reconciliation list. DISCHARGE INSTRUCTIONS: The patient was discharged to [facility] facility. FOLLOWUP: Follow up with medical doctor at the facility. Mariia Costello M.D. I have been assigned to dictate discharge summary on this account and I was not involved in the patient's management. Ann Reagangilbert N.PMilton DR: RAFITA JOB#: [id number] CC: [id number]
== END 2017-07-19 14:30 | DRG 871 ==
LOC: EDBD 23:25 → EMR 23:35 → 4E 07-08 00:17 → EDBEDREQ 07-08 01:14 → 2E 07-08 20:50
DX: A40.9 Streptococcal sepsis, unspecified (principal); I26.99 Other pulmonary embolism without acute cor pulmonale; G93.40 Encephalopathy, unspecified; I47.2 Ventricular tachycardia; J18.9 Pneumonia, unspecified organism; D69.6 Thrombocytopenia, unspecified; I11.0 Hypertensive heart disease with heart failure; E44.0 Moderate protein-calorie malnutrition; I50.9 Heart failure, unspecified; I47.1 Supraventricular tachycardia; I48.91 Unspecified atrial fibrillation; F03.90 Unspecified dementia, unspecified severity, without behavioral disturbance, psychotic disturbance, mood disturbance, and anxiety; I82.491 Acute embolism and thrombosis of other specified deep vein of right lower extremity; L76.34 Postprocedural seroma of skin and subcutaneous tissue following other procedure; J98.11 Atelectasis; I82.4Z1 Acute embolism and thrombosis of unspecified deep veins of right distal lower extremity; D50.9 Iron deficiency anemia, unspecified; E11.9 Type 2 diabetes mellitus without complications; F20.9 Schizophrenia, unspecified; Z68.24 Body mass index [BMI] 24.0-24.9, adult; E78.5 Hyperlipidemia, unspecified; N40.0 Benign prostatic hyperplasia without lower urinary tract symptoms
CPT/HCPCS: 36415; 71045; 71275; 74177; 80048; 80053; 80061; 81003; 82607; 82728; 82746; 83540; 83550; 83605; 83880; 84238; 84439; 84443; 84484; 84550; 85025; 85044; 85379; 85384; 85610; 86710; 87040; 87070; 87081; 87181; 87205; 93005; 93306; 93970; 94760; 99285; J8499